=== PATIENT | female | born 1955 | race Caucasian/White ===

== ENCOUNTER 2019-04-03 10:30 | Emergency (ER) | payer BC ==
--- NOTE | 2019-04-03 11:57 | EDM.PDOC ---
ED HPI GENERAL MEDICAL PROBLEM - General Chief Complaint: Abdominal Pain Stated Complaint: ABD PAIN Time Seen by Provider: 04/03/19 11:54 - History of Present Illness INITIAL COMMENTS - FREE TEXT/NARRATIVE: 63-year-old female presents emergency room with nausea vomiting and abdominal pain. This is been going on most this last week. The patient was evaluated at [facility] earlier in the week had a CAT scan done yesterday which was concerning for some possible source of what could be developing a bowel obstruction in the pelvis. She also had a hiatal hernia noted. Earlier in the week she had a gallbladder ultrasound done that was possibly suggestive of fatty liver. Over the weekend she's been doing worse more discomfort some bloating and more nausea and vomiting. She is bringing up bilious vomit until she arrives in the emergency room is changed color to some maroonish dark. She' s not had any BMs today she did have several loosely formed stools normal color. On Thursday she had numerous loose watery bilious colored stools after the CT was done she did have oral contrast. She's not had any fevers or chills with this. Upper Abdomen Pain Score (Numeric/FACES): 9 - Related Data Allergies Allergy/AdvReac Type Severity Reaction Status Date / Time No Known Allergies Allergy Verified 04/03/19 11:40 Home Meds: Home Meds Denosumab [Prolia] 60 mg INJECT Q6M 04/03/19 [History] Multivits,Th w-Fe,Other Min [Complete Multivitamin] 1 tab PO DAILY 04/03/19 [ History] Oxybutynin Chloride [Ditropan Xl] 10 mg PO DAILY 04/03/19 [History] Propranolol [Inderal LA] 80 mg PO DAILY 04/03/19 [History] ED ROS GENERAL - Review of Systems Review Of Systems: See Below Constitutional: Reports: No Symptoms Respiratory: Reports: No Symptoms Cardiovascular: Reports: No Symptoms Endocrine: Reports: No Symptoms GI/Abdominal: Reports: No Symptoms, Abdominal Pain, Diarrhea, Hematemesis, Nausea, Vomiting. Denies: Black Stool, Bloody Stool, Constipation : Reports: No Symptoms Musculoskeletal: Reports: No Symptoms Neurological: Reports: No Symptoms Psychiatric: Reports: No Symptoms ED EXAM, GI/ABD - Physical Exam Exam: See Below Exam Limited By: No Limitations General Appearance: Alert, Mild Distress (From nausea vomiting and discomfort) Throat/Mouth: Normal Inspection, Normal Lips, Normal Oropharynx, No Airway Compromise Head: Atraumatic, Normocephalic Neck: Normal Inspection, Supple, Non-Tender, Full Range of Motion. No: Lymphadenopathy (L), Lymphadenopathy (R) Respiratory/Chest: No Respiratory Distress, Lungs Clear, Normal Breath Sounds Cardiovascular: Regular Rate, Rhythm, No Edema, No Murmur GI/Abdominal Exam: Other (Slightly hyperactive bowel sounds mild distention tenderness noted in the epigastric area is more so than the right and left upper quadrant with some vague discomfort throughout no rebound guarding or rigidity noted) Back Exam: Normal Inspection. No: CVA Tenderness (L), CVA Tenderness (R) Extremities: Normal Inspection, No Pedal Edema Neurological: Alert, Oriented, Normal Cognition Course - Vital Signs Last Recorded V/S: Last Vital Signs Temp 37.2 C 04/03/19 15:35 Pulse 80 04/03/19 15:35 Resp 16 04/03/19 15:35 BP 132/76 04/03/19 15:35 Pulse Ox 96 04/03/19 15:35 - Orders/Labs/Meds Orders: Active Orders 24 hr Category Date Time Status Patient Status [ADT] Stat ADT 04/03/19 17:31 Active EKG Documentation Completion [RC] ASDIRECTED Care 04/03/19 12:24 Active EKG Documentation Completion [RC] STAT Care 04/03/19 13:38 Active Abdomen 2V AP Flat Upright [CR] Stat Exams 04/03/19 12:56 Taken UA W/MICROSCOPIC [URIN] Stat Lab 04/03/19 12:23 Ordered Lactated Ringers [Ringers, Lactated] 1,000 ml Med 04/03/19 17:30 Active IV ASDIRECTED Sodium Chloride 0.9% [Saline Flush] Med 04/03/19 12:03 Active 10 ml FLUSH ASDIRECTED PRN NG [Nasogastric Orogastric Tube Insertion] [OM.PC] Oth 04/03/19 17:27 Ordered Routine Saline Lock Insert [OM.PC] Routine Oth 04/03/19 12:03 Ordered EKG 12 Lead [EK] Stat Ther 04/03/19 12:23 Ordered Medication Orders Lactated Ringer's (Ringers, Lactated) 1,000 mls @ 150 mls/hr IV ASDIRECTED WILLIAMS Sodium Chloride (Saline Flush) 10 ml FLUSH ASDIRECTED PRN PRN Reason: Keep Vein Open Last Admin: 04/03/19 14:10 Dose: 10 ml Labs: Laboratory Tests 04/03/19 04/03/19 04/03/19 Range/Units 12:12 12:12 12:12 WBC 11.30 H (3.98-10.04) K/mm3 RBC 5.24 H (3.98-5.22) M/mm3 Hgb 15.7 (11.2-15.7) gm/L Hct 46.6 H (34.1-44.9) % MCV 88.9 (79.4-94.8) fl MCH 30.0 (25.6-32.2) pg MCHC 33.7 (32.2-35.5) g/dl RDW Std Deviation 44.2 (36.4-46.3) fL Plt Count 328 (182-369) K/mm3 MPV 9.6 (9.4-12.3) fl Neutrophils % (Manual) 85 H (40-60) % Band Neutrophils % 0 (0-10) % Lymphocytes % (Manual) 13 L (20-40) % Atypical Lymphs % 0 % Monocytes % (Manual) 2 (2-10) % Eosinophils % (Manual) 0 L (0.7-5.8) % Basophils % (Manual) 0 L (0.1-1.2) Platelet Estimate Adequate RBC Morph Comment Normal Sodium 143 (136-145) mEq/L Potassium 3.8 (3.5-5.1) mEq/L Chloride 104 (98-107) mEq/L Carbon Dioxide 27 (21-32) mEq/L Anion Gap 15.8 H (5-15) BUN 12 (7-18) mg/dL Creatinine 1.1 H (0.55-1.02) mg/dL Est Cr Clr Drug Dosing 52.23 mL/min Estimated GFR (MDRD) 50 (>60) mL/min BUN/Creatinine Ratio 10.9 L (14-18) Glucose 132 H (80-115) mg/dL Lactic Acid (0.4-2.0) mmol/L Calcium 10.9 H (8.5-10.1) mg/dL Total Bilirubin 2.0 H (0.2-1.0) mg/dL Direct Bilirubin (0.0-0.2) mg/dl AST 26 (15-37) U/L ALT 31 (14-59) U/L Alkaline Phosphatase 103 (46-116) U/L Troponin I (0.00-0.056) ng/mL C-Reactive Protein < 0.2 (<1.0) mg/dL Total Protein 8.1 (6.4-8.2) g/dl Albumin 4.4 (3.4-5.0) g/dl Globulin 3.7 gm/dL Albumin/Globulin Ratio 1.2 (1-2) Lipase 113 (73-393) U/L 04/03/19 04/03/19 04/03/19 Range/Units 12:12 12:12 17:05 WBC (3.98-10.04) K/mm3 RBC (3.98-5.22) M/mm3 Hgb (11.2-15.7) gm/L Hct (34.1-44.9) % MCV (79.4-94.8) fl MCH (25.6-32.2) pg MCHC (32.2-35.5) g/dl RDW Std Deviation (36.4-46.3) fL Plt Count (182-369) K/mm3 MPV (9.4-12.3) fl Neutrophils % (Manual) (40-60) % Band Neutrophils % (0-10) % Lymphocytes % (Manual) (20-40) % Atypical Lymphs % % Monocytes % (Manual) (2-10) % Eosinophils % (Manual) (0.7-5.8) % Basophils % (Manual) (0.1-1.2) Platelet Estimate RBC Morph Comment Sodium (136-145) mEq/L Potassium (3.5-5.1) mEq/L Chloride (98-107) mEq/L Carbon Dioxide (21-32) mEq/L Anion Gap (5-15) BUN (7-18) mg/dL Creatinine (0.55-1.02) mg/dL Est Cr Clr Drug Dosing mL/min Estimated GFR (MDRD) (>60) mL/min BUN/Creatinine Ratio (14-18) Glucose (80-115) mg/dL Lactic Acid 0.7 (0.4-2.0) mmol/L Calcium (8.5-10.1) mg/dL Total Bilirubin (0.2-1.0) mg/dL Direct Bilirubin 0.30 H (0.0-0.2) mg/dl AST (15-37) U/L ALT (14-59) U/L Alkaline Phosphatase (46-116) U/L Troponin I < 0.017 (0.00-0.056) ng/mL C-Reactive Protein (<1.0) mg/dL Total Protein (6.4-8.2) g/dl Albumin (3.4-5.0) g/dl Globulin gm/dL Albumin/Globulin Ratio (1-2) Lipase (73-393) U/L Meds: Medications Generic Name Dose Route Start Last Admin Trade Name Freq PRN Reason Stop Dose Admin Lactated Ringer's 1,000 mls @ 150 mls/hr 04/03/19 17:30 Ringers, Lactated IV ASDIRECTED WILLIAMS Sodium Chloride 10 ml 04/03/19 12:03 04/03/19 14:10 Saline Flush FLUSH 10 ml ASDIRECTED PRN Administration Keep Vein Open Discontinued Medications Generic Name Dose Route Start Last Admin Trade Name Freq PRN Reason Stop Dose Admin Al Hydroxide/Mg Hydroxide 30 0 ml 04/03/19 12:29 04/03/19 12:51 ml/ Lidocaine HCl 15 ml PO 04/03/19 12:30 45 ml ONETIME ONE Administration Hydromorphone HCl 0.5 mg 04/03/19 15:14 04/03/19 15:21 Dilaudid IVPUSH 04/03/19 15:15 0.5 mg ONETIME ONE Administration Sodium Chloride 1,000 mls @ 999 mls/hr 04/03/19 12:14 04/03/19 12:27 Normal Saline IV 04/03/19 13:14 999 mls/hr ONETIME ONE Administration Lactated Ringer's 1,000 mls @ 999 mls/hr 04/03/19 13:33 04/03/19 13:45 Ringers, Lactated IV 04/03/19 14:33 999 mls/hr .BOLUS ONE Administration Metoclopramide HCl 5 mg 04/03/19 15:15 04/03/19 15:19 Reglan IVPUSH 04/03/19 15:16 5 mg ONETIME ONE Administration Ondansetron HCl 4 mg 04/03/19 12:02 04/03/19 12:18 Zofran IVPUSH 04/03/19 12:03 4 mg ONETIME ONE Administration Ondansetron HCl 4 mg 04/03/19 12:55 04/03/19 13:02 Zofran IVPUSH 04/03/19 12:56 4 mg ONETIME ONE Administration Pantoprazole Sodium 80 mg 04/03/19 12:29 04/03/19 12:54 Protonix Iv IVPUSH 04/03/19 12:30 80 mg BOLUS ONE Administration - Re-Assessments/Exams Free Text/Narrative Re-Assessment/Exam: 04/03/19 17:[address] done on Thursday this was not repeated she had plain films done today which show a couple dilated loops small bowel in the right upper quadrant. Patient got some relief from nausea and vomiting with Reglan and a little Dilaudid much more tolerable at this point situation including the CT done at [facility] yesterday were discussed with Dr. Peterson reviewed their records and then got back to me she'll have an NG tube placed as she has not had a BM today and she will be admitted. We'll continue the IV fluids LR 150 mL an hour. 04/03/19 18:33 Dr. Peterson did evaluate the patient and thinks she be better served by going to [place] as this may be a very large surgery if there is indeed a tumor causing this. She has discussed this with the on-call surgeon at [facility] in [place] as well as Dr. Grove, the hospitalist who will admit the patient requested go by private car and her will drive her immediately over to [facility] in [place] and this should be a direct admission. Departure - Departure Time of Disposition: 17:00 Disposition: DC/Tfer to Acute Hospital 02 Clinical Impression: Small bowel obstruction - Discharge Information Referrals: Katty Arreola MD [Primary Care Provider] - Forms: ED Department Discharge Additional Instructions: Get to [facility] in [place] as soon as you can. Do not have anything to eat or drink. - My Orders Last 24 Hours: My Active Orders 04/03/19 12:03 Sodium Chloride 0.9% [Saline Flush] 10 ml FLUSH ASDIRECTED PRN Saline Lock Insert [OM.PC] Routine 04/03/19 12:23 UA W/MICROSCOPIC [URIN] Stat EKG 12 Lead [EK] Stat 04/03/19 12:24 EKG Documentation Completion [RC] ASDIRECTED 04/03/19 12:56 Abdomen 2V AP Flat Upright [CR] Stat 04/03/19 13:38 EKG Documentation Completion [RC] STAT 04/03/19 17:27 NG [Nasogastric Orogastric Tube Insertion] [OM.PC] Routine 04/03/19 17:30 Lactated Ringers [Ringers, Lactated] 1,000 ml IV ASDIRECTED 04/03/19 17:31 Patient Status [ADT] Stat - Assessment/Plan Last 24 Hours: My Active Orders 04/03/19 12:03 Sodium Chloride 0.9% [Saline Flush] 10 ml FLUSH ASDIRECTED PRN Saline Lock Insert [OM.PC] Routine 04/03/19 12:23 UA W/MICROSCOPIC [URIN] Stat EKG 12 Lead [EK] Stat 04/03/19 12:24 EKG Documentation Completion [RC] ASDIRECTED 04/03/19 12:56 Abdomen 2V AP Flat Upright [CR] Stat 04/03/19 13:38 EKG Documentation Completion [RC] STAT 04/03/19 17:27 NG [Nasogastric Orogastric Tube Insertion] [OM.PC] Routine 04/03/19 17:30 Lactated Ringers [Ringers, Lactated] 1,000 ml IV ASDIRECTED 04/03/19 17:31 Patient Status [ADT] Stat
[2019-04-03] MEDS ORDERED: Ondansetron 4 MG/2 ML SDV IVPUSH ONE ×2 (12:02→12:55)
[2019-04-03] MEDS ORDERED: Sodium Chloride 0.9% 10 ML Syringe FLUSH PRN (12:03)
[2019-04-03] MEDS ORDERED: Sodium Chloride 0.9% 1,000 ML IV ONE (12:14)
[2019-04-03] MEDS ORDERED: Alum Hydrox/Mag Hydrox/Simeth 30 ML, Lidocaine 2% 15 ML PO ONE ×2 (12:29)
[2019-04-03] MEDS ORDERED: Pantoprazole 40 MG Vial IVPUSH ONE (12:29)
[2019-04-03] MEDS ORDERED: Lactated Ringers 1,000 ML IV ONE (13:33)
[2019-04-03] MEDS ORDERED: HYDROmorphone 0.5 MG/0.5 ML Syringe IVPUSH ONE (15:14)
[2019-04-03] MEDS ORDERED: Metoclopramide 10 MG/2 ML SDV IVPUSH ONE (15:15)
[2019-04-03] MEDS ORDERED: Lactated Ringers 1,000 ML IV SCH (17:30)
--- NOTE | 2019-04-03 18:30 | PCM.CONS ---
H&P History of Present Illness - General Date of Service: 04/03/19 Admit Problem/Dx: Admission Diagnosis/Problem Admission Diagnosis/Problem Small bowel obstruction Source of Information: Patient, Old Records, Provider - History of Present Illness Initial Comments - Free Text/Narative: the patient is a 63-year-old worsening epigastric abdominal pain as well as nausea and vomiting. The patient reports having intermittent epigastric pain for the last 2 weeks. It worsened today. upon arrival to the emergency room, she noted coffee grounds and dark blood in her vomit. She experienced diarrhea 2 days ago after having a CT scan with contrast, since that time she's had scant amount of stool, last was one day ago. patient then proceeded to have a small watery brown stool in the emergency department Approximately 1 week ago she also was experiencing nausea and vomiting. She was seen in the outpatient clinic and laboratory evaluation was conducted. She was seen by a surgeon outpatient, a CT scan was done. The CT scan revealed some dilated loops of bowel with a stricturing process in the right lower quadrant, concern for malignancy versus infectious process. 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 - Infectious Disease History Infectious Disease History: Reports: Chicken Pox, Measles, Mumps - Past Surgical History GI Surgical History: Reports: Colonoscopy Social & Family History - Family History Oncologic: Reports: Colon (in father, age 60's when diagnosed) - Tobacco Use Smoking Status *Q: Never Smoker Second Hand Smoke Exposure: No - Caffeine Use Caffeine Use: Reports: Coffee - Recreational Drug Use Recreational Drug Use: No H&P Review of Systems - Review of Systems: Review Of Systems: See Below General: Reports: No Symptoms HEENT: Reports: No Symptoms Pulmonary: Reports: No Symptoms Cardiovascular: Reports: No Symptoms Gastrointestinal: Reports: Abdominal Pain, Hematemesis, Nausea Musculoskeletal: Reports: No Symptoms Skin: Reports: No Symptoms Neurological: Reports: No Symptoms Hematologic/Lymphatic: Reports: No Symptoms Exam - Exam Exam: See Below - Vital Signs Vital Signs: Last Vital Signs Temp 37.2 C 04/03/19 15:35 Pulse 80 04/03/19 15:35 Resp 16 04/03/19 15:35 BP 132/76 04/03/19 15:35 Pulse Ox 96 04/03/19 15:35 Weight: 68.492 kg - Exam General: Alert, Oriented HEENT: Conjunctiva Clear, EOMI Neck: Supple Lungs: Normal Respiratory Effort Cardiovascular: Regular Rate, Regular Rhythm GI/Abdominal Exam: Soft, No Distention Extremities: Normal Inspection Peripheral Pulses: 2+: Posterior Tibial (L), Posterior Tibial (R) Skin: Warm, Dry, Intact - Patient Data Lab Results Last 24 hrs: Laboratory Results - last 24 hr 04/03/19 04/03/19 04/03/19 Range/Units 12:12 12:12 12:12 WBC 11.30 H (3.98-10.04) K/mm3 RBC 5.24 H (3.98-5.22) M/mm3 Hgb 15.7 (11.2-15.7) gm/L Hct 46.6 H (34.1-44.9) % MCV 88.9 (79.4-94.8) fl MCH 30.0 (25.6-32.2) pg MCHC 33.7 (32.2-35.5) g/dl RDW Std Deviation 44.2 (36.4-46.3) fL Plt Count 328 (182-369) K/mm3 MPV 9.6 (9.4-12.3) fl Neutrophils % (Manual) 85 H (40-60) % Band Neutrophils % 0 (0-10) % Lymphocytes % (Manual) 13 L (20-40) % Atypical Lymphs % 0 % Monocytes % (Manual) 2 (2-10) % Eosinophils % (Manual) 0 L (0.7-5.8) % Basophils % (Manual) 0 L (0.1-1.2) Platelet Estimate Adequate RBC Morph Comment Normal Sodium 143 (136-145) mEq/L Potassium 3.8 (3.5-5.1) mEq/L Chloride 104 (98-107) mEq/L Carbon Dioxide 27 (21-32) mEq/L Anion Gap 15.8 H (5-15) BUN 12 (7-18) mg/dL Creatinine 1.1 H (0.55-1.02) mg/dL Est Cr Clr Drug Dosing 52.23 mL/min Estimated GFR (MDRD) 50 (>60) mL/min BUN/Creatinine Ratio 10.9 L (14-18) Glucose 132 H (80-115) mg/dL Lactic Acid (0.4-2.0) mmol/L Calcium 10.9 H (8.5-10.1) mg/dL Total Bilirubin 2.0 H (0.2-1.0) mg/dL Direct Bilirubin (0.0-0.2) mg/dl AST 26 (15-37) U/L ALT 31 (14-59) U/L Alkaline Phosphatase 103 (46-116) U/L Troponin I (0.00-0.056) ng/mL C-Reactive Protein < 0.2 (<1.0) mg/dL Total Protein 8.1 (6.4-8.2) g/dl Albumin 4.4 (3.4-5.0) g/dl Globulin 3.7 gm/dL Albumin/Globulin Ratio 1.2 (1-2) Lipase 113 (73-393) U/L 04/03/19 04/03/19 04/03/19 Range/Units 12:12 12:12 17:05 WBC (3.98-10.04) K/mm3 RBC (3.98-5.22) M/mm3 Hgb (11.2-15.7) gm/L Hct (34.1-44.9) % MCV (79.4-94.8) fl MCH (25.6-32.2) pg MCHC (32.2-35.5) g/dl RDW Std Deviation (36.4-46.3) fL Plt Count (182-369) K/mm3 MPV (9.4-12.3) fl Neutrophils % (Manual) (40-60) % Band Neutrophils % (0-10) % Lymphocytes % (Manual) (20-40) % Atypical Lymphs % % Monocytes % (Manual) (2-10) % Eosinophils % (Manual) (0.7-5.8) % Basophils % (Manual) (0.1-1.2) Platelet Estimate RBC Morph Comment Sodium (136-145) mEq/L Potassium (3.5-5.1) mEq/L Chloride (98-107) mEq/L Carbon Dioxide (21-32) mEq/L Anion Gap (5-15) BUN (7-18) mg/dL Creatinine (0.55-1.02) mg/dL Est Cr Clr Drug Dosing mL/min Estimated GFR (MDRD) (>60) mL/min BUN/Creatinine Ratio (14-18) Glucose (80-115) mg/dL Lactic Acid 0.7 (0.4-2.0) mmol/L Calcium (8.5-10.1) mg/dL Total Bilirubin (0.2-1.0) mg/dL Direct Bilirubin 0.30 H (0.0-0.2) mg/dl AST (15-37) U/L ALT (14-59) U/L Alkaline Phosphatase (46-116) U/L Troponin I < 0.017 (0.00-0.056) ng/mL C-Reactive Protein (<1.0) mg/dL Total Protein (6.4-8.2) g/dl Albumin (3.4-5.0) g/dl Globulin gm/dL Albumin/Globulin Ratio (1-2) Lipase (73-393) U/L Result Diagrams: 04/03/19 12:12 04/03/19 12:12 Consult PN Assessment/Plan Procedures: Procedures DXA BONE DENSITY AXIAL (12/02/13) (1) Small bowel obstruction SNOMED Code(s): 614074498 Code(s): K56.609 - UNSP INTESTNL OBST, UNSP TO PARTIAL VERSUS COMPLETE OBST Current Visit: Yes Problem List Initiated/Reviewed/Updated: Yes My Orders Last 24 Hours: 63-year-old lady with small bowel obstruction, unknown etiology of stricturing process - ppatient with only mild elevation in WBC, unlikely infectious etiology. High suspicion for malignancy given her lack of abdominal surgery and no history of inflammatory bowel disease. Patient also has family history of colon cancer in her father and has not had a colonoscopy in greater than 10 years - she may need very involved resection which would not be best managed our facility. Recommend patient be transferred to [facility]. Call placed to [facility] one-call. Talked with Dr. Whitlock who agreed to transfer. Discussed with Dr. Barnes hospitalist to have patient directly admitted. Pt instructed to Proceed to Ambulance bay at [facility], then she will be directed to the floor. Tata James MD General Surgery Plan: 63 y/o with small bowel obstruction from stricturing process, unknown etiology - discussed with patient that this may be from benign or malignant etiology. Discussed that if malignant
--- NOTE | 2019-04-04 07:00 | CR ---
Abdomen: Supine and upright views of the abdomen were obtained. Comparison: Previous abdominal and pelvic CT study of 04/01/19. Dilated small bowel is noted within the upper right abdomen with differential air-fluid levels. Findings are suspicious for mid to proximal small bowel obstruction. Scoliosis and degenerative change are noted within the spine. No free air is seen. Calcification is seen within the left side of the pelvis most likely due to phlebolith. Impression: 1. Findings suspicious for mid to proximal small bowel obstruction. 2. Other incidental findings as noted above. Diagnostic code #5
== END 2019-04-03 19:37 ==
LOC: JD.ED 10:30
DX: K56.609 Unspecified intestinal obstruction, unspecified as to partial versus complete obstruction (principal)
CPT/HCPCS: 36415; 74019; 80053; 82248; 83605; 83690; 84484; 85007; 85027; 86140; 93005; 96361; 96374; 96375; 96376; 99285; A9270; C9113; J1170; J2405; J2765; J7040; J7120; 93010; 99284

== ENCOUNTER 2019-04-08 10:06 | Emergency (ER) | payer BC ==
--- NOTE | 2019-04-08 10:35 | EDM.PDOC ---
ED HPI GENERAL MEDICAL PROBLEM - General Chief Complaint: Chest Pain Stated Complaint: CHEST PAIN, STOMACH PAIN Time Seen by Provider: 04/08/19 10:24 Source of Information: Reports: Patient History Limitations: Reports: No Limitations - History of Present Illness INITIAL COMMENTS - FREE TEXT/NARRATIVE: 63-year-old female presents to the ED with epigastric pressure pain with associated nausea and did vomit once this morning. Pain radiates along both costal margins. She was recently diagnosed with a hiatal hernia by EGD in [place] on Thursday this week. She had a laparoscopy performed to rule out a abnormality in the small bowel as CT suggested there may be a tumor in the small bowel. No tumor was identified. She has had one normal bowel movement since surgery. Does have occasional burping and belching. Feels that proton axis try to help with the heartburn which she started on Thursday. Over she awoke with pain during the night in the epigastrium radiating along the costal margin up slightly into her lower retrosternal chest. Onset: Today Onset Date: 04/08/19 Onset Time: 06:00 Duration: Hour(s): Location: Reports: Abdomen (Pit of the stomach of or epigastrium.) Quality: Reports: Ache, Pressure Severity: Moderate Improves with: Reports: None Worsens with: Reports: None Context: Denies: Activity, Exercise, Lifting, Sick Contact, Trauma, Other Associated Symptoms: Reports: Chest Pain, Loss of Appetite, Nausea/Vomiting ( Vomited up breakfast which was a banana this morning.). 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 ASSISTANT: Reports: Other (see below) (None.) Epigastric Pain Score (Numeric/FACES): 7 - Related Data Allergies Allergy/AdvReac Type Severity Reaction Status Date / Time No Known Allergies Allergy Verified 04/08/19 10:15 Home Meds: Home Meds Denosumab [Prolia] 60 mg INJECT Q6M 04/03/19 [History] Multivits,Th w-Fe,Other Min [Complete Multivitamin] 1 tab PO DAILY 04/03/19 [ History] Oxybutynin Chloride [Ditropan Xl] 10 mg PO DAILY 04/03/19 [History] Propranolol [Inderal LA] 80 mg PO DAILY 04/03/19 [History] Hyoscyamine Sulfate [Levsin-Sl] 0.125 mg SL ASDIRECTED #10 tab.subl 04/08/19 [Rx ] Ondansetron [Zofran] 4 mg BUCCAL Q6H PRN #6 tab 04/08/19 [Rx] Pantoprazole Sodium [Protonix] 40 mg PO DAILY 04/08/19 [History] Past Medical History Gastrointestinal History: Reports: GERD, Hiatal Hernia, Other (See Below) ( Diagnosed with hiatal hernia by EGD days ago-April 04) 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 - Infectious Disease History Infectious Disease History: Reports: Chicken Pox, Measles, Mumps - Past Surgical History GI Surgical History: Reports: Colonoscopy Social & Family History - Family History Oncologic: Reports: Colon - Tobacco Use Smoking Status *Q: Never Smoker - Caffeine Use Caffeine Use: Reports: Coffee - Recreational Drug Use Recreational Drug Use: No - Living Situation & Occupation Living situation: Reports: Occupation: Employed ED ROS GENERAL - Review of Systems Review Of Systems: See Below Constitutional: Reports: Malaise, Weakness, Fatigue, Decreased Appetite, Weight Loss. Denies: Fever, Chills HEENT: Reports: No Symptoms Respiratory: Reports: No Symptoms Cardiovascular: Reports: Chest Pain Endocrine: Reports: Fatigue (Mild lower retrosternal pressure discomfort.) GI/Abdominal: Reports: Abdominal Pain (Epigastric pressure pain rating along both costal margins anteriorly.) : Reports: No Symptoms ( Is not radiate through to her back.) Musculoskeletal: Reports: No Symptoms Skin: Reports: No Symptoms Neurological: Reports: No Symptoms Psychiatric: Reports: No Symptoms Hematologic/Lymphatic: Reports: No Symptoms Immunologic: Reports: No Symptoms ED EXAM, GENERAL - Physical Exam Exam: See Below General Appearance: Alert, WD/WN, No Apparent Distress Eye Exam: Bilateral Eye: Normal Inspection (No scleral icterus.) Respiratory/Chest: No Respiratory Distress, Lungs Clear, Normal Breath Sounds, No Accessory Muscle Use, Chest Non-Tender Cardiovascular: Regular Rate, Rhythm, No Edema, No Gallop, No Murmur, No Rub Peripheral Pulses: 3+: Posterior Tibial (L), Posterior Tibial (R), Dorsalis Pedis (L), Dorsalis Pedis (R) GI/Abdominal: Soft, No Organomegaly, Tender, Abnormal Bowel Sounds, Other ( Negative Lovelace sign). No: Guarding, Rigid, Rebound Back Exam: Normal Inspection, Full Range of Motion. No: CVA Tenderness (L), CVA Tenderness (R) Extremities: Normal Inspection, Normal Range of Motion, Non-Tender Neurological: Alert, Oriented, CN II-XII Intact, Normal Cognition Psychiatric: Anxious Skin Exam: Warm, Dry, Intact, Pallor (Mildly pallid) EKG INTERPRETATION EKG Date: 04/08/19 Time: 14:00 Rhythm: NSR Rate (Beats/Min): 64 [place]: Normal P-Wave: Enlarged (Consider left atrial hypertrophy) QRS: Other (Borderline criteria for left ventricular hypertrophy pattern) ST-T: Normal QT: Normal EKG Interpretation Comments: No signs of ischemia. ECG Course - Vital Signs Last Recorded V/S: Last Vital Signs Temp 35.8 C 04/08/19 10:12 Pulse 70 04/08/19 10:12 Resp 16 04/08/19 10:12 BP 131/108 H 04/08/19 10:12 Pulse Ox 100 04/08/19 10:12 - Orders/Labs/Meds Orders: Active Orders 24 hr Category Date Time Status EKG Documentation Completion [RC] ASDIRECTED Care 04/08/19 10:18 Active Chest 2V [CR] Stat Exams 04/08/19 10:42 Taken Dextrose 5%-0.9% NaCl [Dextrose 5%-Normal Saline] 1,000 Med 04/08/19 10:45 Active ml IV ASDIRECTED EKG 12 Lead [EK] Stat Ther 04/08/19 10:18 Ordered Medication Orders Dextrose/Sodium Chloride (Dextrose 5%-Normal Saline) 1,000 mls @ 500 mls/hr IV ASDIRECTED WILLIAMS Last Admin: 04/08/19 10:47 Dose: 500 mls/hr Meds: Medications Generic Name Dose Route Start Last Admin Trade Name Freq PRN Reason Stop Dose Admin Dextrose/Sodium Chloride 1,000 mls @ 500 mls/hr 04/08/19 10:45 04/08/19 10:47 Dextrose 5%-Normal Saline IV 500 mls/hr ASDIRECTED WILLIAMS Administration Discontinued Medications Generic Name Dose Route Start Last Admin Trade Name Freq PRN Reason Stop Dose Admin Hyoscyamine 0.125 mg 04/08/19 10:50 Hyomax-Sl SL 04/08/19 10:51 ONETIME ONE Hyoscyamine 0.125 mg 04/08/19 10:40 04/08/19 10:48 Hyomax-Sl SL 04/08/19 10:41 Not Given ONETIME ONE Hyoscyamine 0.125 mg 04/08/19 10:39 04/08/19 10:48 Hyomax-Sl SL 04/08/19 10:40 0.125 mg ONETIME ONE Administration Hyoscyamine 0.125 mg 04/08/19 10:52 04/08/19 11:12 Hyomax-Sl SL 04/08/19 10:53 0.125 mg ONETIME ONE Administration Metoclopramide HCl 7.5 mg 04/08/19 10:41 04/08/19 10:47 Reglan IVPUSH 04/08/19 10:42 7.5 mg ONETIME ONE Administration - Radiology Interpretation Free Text/Narrative:: 63-year-old female presents to the ED with epigastric pain rating along both anterior costal margins but not through to her back. This is characteristic of hiatal hernia type pain of which she was recently diagnosed. We'll try Levsin 0.125 mg now repeat in 10 minutes. IV will be started D5 normal saline at 500 mils per hour. Will be given Reglan 7.5 mg IV for nausea relief. Two-view chest will be done to see if we can identify a significant hiatal hernia on chest x- ray. - Re-Assessments/Exams Free Text/Narrative Re-Assessment/Exam: 04/08/19 11:07 lateral chest x-ray does reveal a small amount of air retrocardiac space suggesting hiatal hernia. 04/08/19 11:37 patient reports that after the second tablet of lessen the pain is pretty well gone. Therefore she will be discharged on Levsin tablets to have on hand to use 1 every 10 minutes apart 2 tablets for similar attacks if needed. Zofran 4 mg sublingual every 4-6 hours as needed for nausea relief. They will raise the head of the bed by 4 inches with couple of 2 x 4 send an effort to try and prevent recurrent hiatal hernia tacks. Failing this they will contact their primary care provider to try and set up with a surgeon who does fundoplication. Will continue her Protonix at this time. Departure - Departure Time of Disposition: 11:38 Disposition: Home, Self-Care 01 Condition: Fair Clinical Impression: Non-cardiac chest pain, Hiatal hernia Prescriptions: Hyoscyamine Sulfate [Levsin-Sl] 0.125 mg SL ASDIRECTED #10 tab.subl Ondansetron [Zofran] 4 mg BUCCAL Q6H PRN #6 tab PRN Reason: nausea or vomiting Instructions: Hiatal Hernia Referrals: Katty Arreola MD [Primary Care Provider] - Forms: ED Department Discharge Additional Instructions: Valuation the emergency room today in regards to development of pit of the stomach epigastric pain radiating up into the lower retrosternal chest. Pain radiates along the costal margin but not through to the back. History of recently diagnosed hiatal hernia. Examination reveals lungs to be clear heart normal ECG normal. Current pain syndrome is felt to be hiatal hernia related. He was therefore given Reglan 7.5 mg intravenously for nausea relief. Less in 0.125 mg tablets sublingual times to 10 minutes apart which seem to relieve your pain a good deal. I will send a prescription over the same type of medication and Zofran 4 mg under the tongue to be taken every 6 hours as needed for nausea relief when you get one of these attacks. As we discussed going to bed with an empty stomach with nothing to eat for 3 hours prior to going to bed usually helps eliminate a lot of hiatal hernia. Raising the head of the bed by 2 2 x 4 is usually helps alleviate hiatal hernia pain as well. May use the Levsin under the tongue one every 10 minutes 2 for relief of similar type pain with Zofran under the tongue as well. Failing this over the pain persists then come back to the ED. If symptoms persist then have your primary care physician arrange for surgical consultation in regards to possible fundoplication to repair her hiatal hernia and prevent this from reoccurring. - My Orders Last 24 Hours: My Active Orders 04/08/19 10:18 EKG Documentation Completion [RC] ASDIRECTED EKG 12 Lead [EK] Stat 04/08/19 10:42 Chest 2V [CR] Stat 04/08/19 10:45 Dextrose 5%-0.9% NaCl [Dextrose 5%-Normal Saline] 1,000 ml IV ASDIRECTED - Assessment/Plan Last 24 Hours: My Active Orders 04/08/19 10:18 EKG Documentation Completion [RC] ASDIRECTED EKG 12 Lead [EK] Stat 04/08/19 10:42 Chest 2V [CR] Stat 04/08/19 10:45 Dextrose 5%-0.9% NaCl [Dextrose 5%-Normal Saline] 1,000 ml IV ASDIRECTED
[2019-04-08] MEDS ORDERED: Hyoscyamine 0.125 MG Tab.SL SL ONE ×4 (10:39→10:52)
[2019-04-08] MEDS ORDERED: Metoclopramide 10 MG/2 ML SDV IVPUSH ONE (10:41)
[2019-04-08] MEDS ORDERED: Dextrose 5%-0.9% NaCl 1,000 ML IV SCH (10:45)
--- NOTE | 2019-04-08 11:54 | CR ---
Chest: Two views of the chest were obtained. Comparison: No prior chest imaging. Heart size is normal. Small hiatal hernia is noted. Tortuous thoracic aorta is seen. Lungs are clear with no acute parenchymal change. Fairly prominent scoliosis is present within the spine. Bony structures are also osteopenic. Impression: 1. Small hiatal hernia. 2. Other findings as noted above. Nothing acute is seen. Diagnostic code #2
== END 2019-04-08 11:52 | disposition home or self-care (01) ==
LOC: JD.ED 10:06
DX: K44.9 Diaphragmatic hernia without obstruction or gangrene (principal); R07.89 Other chest pain; K21.9 Gastro-esophageal reflux disease without esophagitis; Z86.2 Personal history of diseases of the blood and blood-forming organs and certain disorders involving the immune mechanism; Z79.899 Other long term (current) drug therapy
CPT/HCPCS: 71046; 93005; 96361; 96374; 99284; A9270; J2765; J7042

== ENCOUNTER 2019-04-16 21:22 | Inpatient (IN) | payer BC ==
[2019-04-16] MEDS ORDERED: Metoclopramide 10 MG/2 ML SDV IVPUSH STA (22:28)
[2019-04-16] MEDS ORDERED: HYDROmorphone 0.5 MG/0.5 ML Syringe IVPUSH ONE (22:28)
[2019-04-16] MEDS ORDERED: Ondansetron 4 MG/2 ML SDV IVPUSH ONE (22:28)
[2019-04-16] MEDS ORDERED: Sodium Chloride 0.9% 1,000 ML IV ONE (22:28)
--- NOTE | 2019-04-16 22:33 | EDM.PDOC ---
ED HPI GENERAL MEDICAL PROBLEM - General Chief Complaint: Abdominal Pain Stated Complaint: HERNIA UNABLE TO KEEP FOOD DOWN NO BM IN WEEK Time Seen by Provider: 04/16/19 21:43 Source of Information: Reports: Patient, Family () History Limitations: Reports: No Limitations - History of Present Illness INITIAL COMMENTS - FREE TEXT/NARRATIVE: Mrs. Bush is a very pleasant 63-year-old woman with no significant medical problems, who states that she has been experiencing recurrent crampy upper abdominal pain, nausea, and vomiting, since late February 2019. An ultrasound of her right upper quadrant approximately 3 weeks ago was reportedly negative. A CT scan of her abdomen and pelvis with contrast approximately 2 weeks ago apparently demonstrated a small hiatal hernia and some dilated loops of bowel with a stricturing process in the right lower quadrant, concerning for malignancy versus an infectious process (I don't have either of those reports). [address] scan, the patient suffered significant nausea and vomiting. As a result of the CT scan, she underwent exploratory laparoscopy on , which was reportedly completely normal. The patient's tells me that the surgeon told him that he ran the bowel from one end to the other, and back again, and found nothing. She then underwent an EGD the following day, on 04/05/2019, which redemonstrated the hiatal hernia, but was otherwise negative. According to the patient's , there was no evidence of gastritis or acid reflux. The patient was then started on Protonix 40 mg daily, which she states she has been compliant with. She states that, because of her symptoms, she has been eating very little, and she also reports few and small bowel movements. The patient's is concerned that this indicates that there is some sort of an intestinal blockage. The patient was seen in this ED on 04/08/2019 for the same epigastric pain, nausea, and vomiting. A chest x-ray again redemonstrated a small hiatal hernia. She was treated with 2 doses of hycosamine (Levsin), IV Reglan, and IV fluid, and her symptoms substantially improved. She was discharged home with prescriptions for hycosamine and Zofran. The patient states that she followed-up with her PCP yesterday, 04/15/2019 , and that she is scheduled for a HIDA scan this coming 04/20/2019. The patient states that she has been taking the hycosamine and Zofran sparingly. She took one dose of hycosamine this morning, and a second dose around 17:00 this evening. She took 1 dose of Zosyn around 20:30 this evening. 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 She denies having any back pain. She does acknowledge, however, that her pain worsens after she eats, and can be avoided if she avoids eating. The patient's PCP is Dr. Katty Busch. Her Senior Associate was likely Dr. Richard Flores. Her General Surgeon was either Dr. Orville Whitlock or Dr. Jacek Dugan. Abdomen Pain Score (Numeric/FACES): 8 - Related Data Allergies Allergy/AdvReac Type Severity Reaction Status Date / Time No Known Allergies Allergy Verified 04/16/19 21:38 Home Meds: Home Meds Denosumab [Prolia] 60 mg INJECT Q6M 04/03/19 [History] Multivits,Th w-Fe,Other Min [Complete Multivitamin] 1 tab PO DAILY 04/03/19 [ History] Oxybutynin Chloride [Ditropan Xl] 10 mg PO DAILY 04/03/19 [History] Propranolol [Inderal LA] 80 mg PO DAILY 04/03/19 [History] Hyoscyamine Sulfate [Levsin-Sl] 0.125 mg SL ASDIRECTED #10 tab.subl 04/08/19 [Rx ] Ondansetron [Zofran] 4 mg BUCCAL Q6H PRN #6 tab 04/08/19 [Rx] Pantoprazole Sodium [Protonix] 40 mg PO DAILY 04/08/19 [History] Past Medical History Gastrointestinal History: Reports: Hiatal Hernia Genitourinary History: Reports: Other (See Below) (Overactive bladder) 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: Musculoskeletal History: Reports: Fracture (left fibula), Osteoporosis, Other ( See Below) (Severe thoracolumbar scoliosis) Neurological History: Reports: Other (See Below) (Essential tremor) - Infectious Disease History Infectious Disease History: Reports: Chicken Pox, Measles, Mumps - Past Surgical History HEENT Surgical History: Reports: Oral Surgery (wisdom teeth extraction) GI Surgical History: Reports: Colonoscopy (x 1), EGD (x 1), Other (See Below) ( Exploratory laparoscopy) Female Surgical History: Reports: Other (See Below) (Left breast fibroid adenoma excision) Social & Family History - Family History Oncologic: Reports: Colon - Tobacco Use Smoking Status *Q: Never Smoker Second Hand Smoke Exposure: No - Caffeine Use Caffeine Use: Reports: None - Alcohol Use Alcohol Use History: No - Recreational Drug Use Recreational Drug Use: No - Living Situation & Occupation Living situation: Reports: , with Spouse 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 ED EXAM, GI/ABD - Physical Exam Exam: See Below Exam Limited By: No Limitations General Appearance: Alert, WD/WN, Mild Distress (Appears uncomfortable. Occasional retching, small emesis.) Eyes: Bilateral: Normal Appearance, EOMI Ears: Normal External Exam, Hearing Grossly Normal Nose: Normal Inspection Throat/Mouth: Normal Inspection, Normal Lips, Normal Voice, No Airway Compromise Head: Atraumatic, Normocephalic Neck: Normal Inspection, Full Range of Motion Respiratory/Chest: No Respiratory Distress, Lungs Clear, Normal Breath Sounds, No Accessory Muscle Use Cardiovascular: Normal Peripheral Pulses, Regular Rate, Rhythm, No Edema, No Gallop, No JVD, No Murmur, No Rub GI/Abdominal Exam: Normal Bowel Sounds, Soft, No Organomegaly, No Distention, No Abnormal Bruit, No Mass, Tender (Right upper quadrant only. Minimal tenderness elsewhere. Lovelace's sign present.) (Female) Exam: Deferred Rectal (Female) Exam: Deferred Back Exam: Normal Inspection, Full Range of Motion. No: CVA Tenderness (L), CVA Tenderness (R) Extremities: Normal Inspection, Normal Range of Motion, No Pedal Edema, Normal Capillary Refill Neurological: Alert, Oriented, Normal Cognition, No Motor/Sensory Deficits Psychiatric: Normal Affect Skin Exam: Warm, Dry, Intact, Normal Color, No Rash Course - Vital Signs Last Recorded V/S: Last Vital Signs Temp 36.6 C 04/16/19 21:32 Pulse 76 04/16/19 21:32 Resp 19 04/16/19 21:32 BP 151/104 H 04/16/19 21:32 Pulse Ox 96 04/16/19 21:32 Orthostatic Blood Pressure [ 122/91 Standing] Orthostatic Blood Pressure [ 135/79 Supine] - Orders/Labs/Meds Orders: Active Orders 24 hr Category Date Time Status Admission Status [Patient Status] [ADT] Routine ADT 04/17/19 00:44 Active Orthostatic Vital Signs [RC] STAT Care 04/16/19 22:29 Active Abdomen 1V Flat [CR] Stat Exams 04/16/19 22:29 Taken Labs: Laboratory Tests 04/16/19 04/16/19 Range/Units 22:42 22:42 WBC 11.00 H (3.98-10.04) K/mm3 RBC 5.06 (3.98-5.22) M/mm3 Hgb 15.1 (11.2-15.7) gm/L Hct 45.5 H (34.1-44.9) % MCV 89.9 (79.4-94.8) fl MCH 29.8 (25.6-32.2) pg MCHC 33.2 (32.2-35.5) g/dl RDW Std Deviation 45.6 (36.4-46.3) fL Plt Count 294 (182-369) K/mm3 MPV 9.3 L (9.4-12.3) fl Neutrophils % (Manual) 89 H (40-60) % Band Neutrophils % 0 (0-10) % Lymphocytes % (Manual) 9 L (20-40) % Atypical Lymphs % 0 % Monocytes % (Manual) 2 (2-10) % Eosinophils % (Manual) 0 L (0.7-5.8) % Basophils % (Manual) 0 L (0.1-1.2) Platelet Estimate Adequate Plt Morphology Comment Normal RBC Morph Comment Normal Sodium 140 (136-145) mEq/L Potassium 3.8 (3.5-5.1) mEq/L Chloride 102 (98-107) mEq/L Carbon Dioxide 24 (21-32) mEq/L Anion Gap 17.8 H (5-15) BUN 17 (7-18) mg/dL Creatinine 1.3 H (0.55-1.02) mg/dL Est Cr Clr Drug Dosing 44.19 mL/min Estimated GFR (MDRD) 42 (>60) mL/min BUN/Creatinine Ratio 13.1 L (14-18) Glucose 135 H (80-115) mg/dL Calcium 10.5 H (8.5-10.1) mg/dL Magnesium 2.1 (1.8-2.4) mg/dl Total Bilirubin 2.2 H (0.2-1.0) mg/dL AST 23 (15-37) U/L ALT 37 (14-59) U/L Alkaline Phosphatase 101 (46-116) U/L Total Protein 7.6 (6.4-8.2) g/dl Albumin 4.1 (3.4-5.0) g/dl Globulin 3.5 gm/dL Albumin/Globulin Ratio 1.2 (1-2) Lipase 166 (73-393) U/L Meds: Medications Discontinued Medications Generic Name Dose Route Start Last Admin Trade Name Freq PRN Reason Stop Dose Admin Hydromorphone HCl 0.5 mg 04/16/19 22:28 04/16/19 22:38 Dilaudid IVPUSH 04/16/19 22:29 0.5 mg ONETIME ONE Administration Sodium Chloride 1,000 mls @ 999 mls/hr 04/16/19 22:28 04/16/19 22:38 Normal Saline IV 04/16/19 23:28 999 mls/hr ONETIME ONE Administration Metoclopramide HCl 10 mg 04/16/19 22:28 04/16/19 22:39 Reglan IVPUSH 04/16/19 22:29 10 mg ONETIME STA Administration Ondansetron HCl 4 mg 04/16/19 22:28 04/16/19 22:39 Zofran IVPUSH 04/16/19 22:29 4 mg ONETIME ONE Administration - Re-Assessments/Exams Free Text/Narrative Re-Assessment/Exam: 04/16/19 22:30 The patient has been suffering from recurrent upper abdominal pain, nausea, and vomiting made worse after eating, since late February. As per the HPI, prior evaluation, including an ultrasound of the right upper quadrant, a CT scan of the abdomen and pelvis, an EGD, and even an exploratory laparoscopy, have all been negative. Based on her history and physical exam, I strongly suspect that the patient is suffering from biliary colic, however, as I explained to the patient and her , proving it can be difficult. For today's purposes, I have ordered blood work, orthostatics, and a KUB to make sure that she has not suffered any significant fluid or electrolyte shifts, and we will correct any abnormalities that we find. In the meantime, the patient will receive IV fluid, IV Reglan, IV Zofran, and IV Dilaudid, to see if we can get her some symptomatic relief. The patient's has already expressed that he does not want to take the patient home, therefore we will likely be looking at placement into observation, where she can then be evaluated by the surgeon in the morning. 04/16/19 22:54 The patient is orthostatic. She is already receiving 1 L of NS; we will recheck orthostatics after it has finished infusing. 04/16/19 23:22 The KUB appears to demonstrate a nonspecific bowel gas pattern. No stool is seen. Severe thoracolumbar scoliosis is noted. Costocalcinosis is noted. Osteopenia is noted. Formal read per the Radiologist pending. 04/16/19 23:26 The patient's CBC is remarkable for a WBC count mildly elevated at 11.00, but with 0% bandemia. Her Hct is slightly elevated at 45.5, with the remainder of the CBC being normal. Her CMP is remarkable for creatinine slightly elevated at 1.3, and a blood glucose mildly elevated at 135. Her total bilirubin is elevated at 2.2. The remainder of her CMP is unremarkable. Her magnesium level is within normal limits at 2.1. Her lipase is within normal limits at 166. Reviewing prior labs, I see that the patient's total bilirubin was 2.0, with a direct bilirubin of 0.3 on 04/03/2019. 04/17/19 00:14 Test results discussed with the patient and her . The patient states that she is feeling considerably better following IV Reglan, Dilaudid, Zofran, and IV fluid. Repeat orthostatics have not yet been checked. Case discussed with Dr. Mckinney at 00:11. He agreed to place the patient into observation. I will write some bridge orders to keep the patient comfortable, and have the Surgeon Dr. Bonilla consult the patient in the morning. 04/17/19 00:18 Following 1 L of NS, the patient is no longer orthostatic. Departure - Departure Time of Disposition: 00:16 Disposition: Refer to Observation Condition: Good Clinical Impression: Recurrent right upper quadrant abdominal pain, Nausea & vomiting, Orthostasis - Discharge Information *PRESCRIPTION DRUG MONITORING PROGRAM REVIEWED*: Not Applicable *COPY OF PRESCRIPTION DRUG MONITORING REPORT IN PATIENT ERLINDA: Not Applicable Referrals: Katty Arreola MD [Primary Care Provider] - - My Orders Last 24 Hours: My Active Orders 04/16/19 22:29 Orthostatic Vital Signs [RC] STAT Abdomen 1V Flat [CR] Stat 04/17/19 00:44 Admission Status [Patient Status] [ADT] Routine - Assessment/Plan Last 24 Hours: My Active Orders 04/16/19 22:29 Orthostatic Vital Signs [RC] STAT Abdomen 1V Flat [CR] Stat 04/17/19 00:44 Admission Status [Patient Status] [ADT] Routine
[2019-04-17] MEDS ORDERED: Ondansetron 4 MG/2 ML SDV IVPUSH PRN (01:41)
[2019-04-17] MEDS: Sodium Chloride 0.9% 1,000 ML IV SCH ×4 (02:01→23:17)
[2019-04-17] MEDS: HYDROmorphone 0.5 MG/0.5 ML Syringe IVPUSH PRN ×2 (02:10→22:32)
--- NOTE | 2019-04-17 10:40 | PCM.CONSN ---
- General Info Date of Service: 04/17/19 Admission Dx/Problem (Free Text): Upper abdominal pain, nausea and vomiting Subjective Update: She reports acute on chronic epigastric pain associated with nausea and vomiting. started last night after attempting to eat a small meal consisting of applesauce. The emesis was the food she just ate, no blood, non-bilious. The pain is mostly epigastric "just under the ribs" and is sharp, gets better after belching or vomiting, worse with PO intake. Lasts several minutes at a time. it does not radiate, she gets bowel gurgling before pain relief. The patient has had this problem for 6 weeks now. I saw her 2 weeks ago for the same issue and we performed CT a/p on 04/01 that revealed hiatal hernia and a distal small bowel stricture. The patient presented to [facility] ED on 04/03 for exacerbation of the same pain and underwent exploratory laparoscopy that was negative for a stricture and EGD that showed hiatal hernia. She was discharged with Protonix. She has been taking Protonix since discharge on 04/05 but no change in her symptoms. She previously underwent an RUQ Ultrasound that was normal, no gallstones. She denies any fevers, chills, SOB, chest pain. Her labs from today show Creat of 1.3, WBC of 11 and Tbili of 2.2. Pain Score: 3 - Review of Systems General: Reports: No Symptoms HEENT: Reports: No Symptoms Pulmonary: Reports: No Symptoms Cardiovascular: Reports: No Symptoms Gastrointestinal: Reports: Abdominal Pain, Nausea, Vomiting Genitourinary: Reports: No Symptoms Musculoskeletal: Reports: No Symptoms Skin: Reports: No Symptoms Neurological: Reports: No Symptoms Psychiatric: Reports: No Symptoms - Patient Data Vitals - Most Recent: Last Vital Signs Temp 97.7 F 04/17/19 07:53 Pulse 59 L 04/17/19 07:53 Resp 16 04/17/19 07:53 BP 135/80 04/17/19 07:53 Pulse Ox 97 04/17/19 07:53 Orthostatic Blood Pressure [ 122/91 Standing] Orthostatic Blood Pressure [ 135/79 Supine] Weight - Most Recent: 67.313 kg I&O - Last 24 Hours: Intake & Output 04/16/19 04/17/19 04/17/19 22:59 06:59 14:59 Output Total 100 Balance -100 Lab Results Last 24 Hours: Laboratory Results - last 24 hr 04/16/19 04/16/19 Range/Units 22:42 22:42 WBC 11.00 H (3.98-10.04) K/mm3 RBC 5.06 (3.98-5.22) M/mm3 Hgb 15.1 (11.2-15.7) gm/L Hct 45.5 H (34.1-44.9) % MCV 89.9 (79.4-94.8) fl MCH 29.8 (25.6-32.2) pg MCHC 33.2 (32.2-35.5) g/dl RDW Std Deviation 45.6 (36.4-46.3) fL Plt Count 294 (182-369) K/mm3 MPV 9.3 L (9.4-12.3) fl Neutrophils % (Manual) 89 H (40-60) % Band Neutrophils % 0 (0-10) % Lymphocytes % (Manual) 9 L (20-40) % Atypical Lymphs % 0 % Monocytes % (Manual) 2 (2-10) % Eosinophils % (Manual) 0 L (0.7-5.8) % Basophils % (Manual) 0 L (0.1-1.2) Platelet Estimate Adequate Plt Morphology Comment Normal RBC Morph Comment Normal Sodium 140 (136-145) mEq/L Potassium 3.8 (3.5-5.1) mEq/L Chloride 102 (98-107) mEq/L Carbon Dioxide 24 (21-32) mEq/L Anion Gap 17.8 H (5-15) BUN 17 (7-18) mg/dL Creatinine 1.3 H (0.55-1.02) mg/dL Est Cr Clr Drug Dosing 44.19 mL/min Estimated GFR (MDRD) 42 (>60) mL/min BUN/Creatinine Ratio 13.1 L (14-18) Glucose 135 H (80-115) mg/dL Calcium 10.5 H (8.5-10.1) mg/dL Magnesium 2.1 (1.8-2.4) mg/dl Total Bilirubin 2.2 H (0.2-1.0) mg/dL AST 23 (15-37) U/L ALT 37 (14-59) U/L Alkaline Phosphatase 101 (46-116) U/L Total Protein 7.6 (6.4-8.2) g/dl Albumin 4.1 (3.4-5.0) g/dl Globulin 3.5 gm/dL Albumin/Globulin Ratio 1.2 (1-2) Lipase 166 (73-393) U/L Med Orders - Current: Current Medications Hydromorphone HCl (Dilaudid) 0.5 mg IVPUSH Q2H PRN PRN Reason: Pain Last Admin: 04/17/19 02:10 Dose: 0.5 mg Sodium Chloride (Normal Saline) 1,000 mls @ 150 mls/hr IV ASDIRECTED WILLIAMS Last Admin: 04/17/19 08:33 Dose: 150 mls/hr Ondansetron HCl (Zofran) 4 mg IVPUSH Q6H PRN PRN Reason: Nausea Discontinued Medications Hydromorphone HCl (Dilaudid) 0.5 mg IVPUSH ONETIME ONE Stop: 04/16/19 22:29 Last Admin: 04/16/19 22:38 Dose: 0.5 mg Sodium Chloride (Normal Saline) 1,000 mls @ 999 mls/hr IV ONETIME ONE Stop: 04/16/19 23:28 Last Admin: 04/16/19 22:38 Dose: 999 mls/hr Metoclopramide HCl (Reglan) 10 mg IVPUSH ONETIME STA Stop: 04/16/19 22:29 Last Admin: 04/16/19 22:39 Dose: 10 mg Ondansetron HCl (Zofran) 4 mg IVPUSH ONETIME ONE Stop: 04/16/19 22:29 Last Admin: 04/16/19 22:39 Dose: 4 mg - Exam General: Alert, Oriented, Cooperative, No Acute Distress HEENT: Other (No scleral icterus) Cardiovascular: Regular Rate GI/Abdominal Exam: Soft, Non-Tender, No Organomegaly, No Distention, No Abnormal Bruit, No Mass Consult PN Assessment/Plan POD#: 0 Procedures: Procedures ASSAY OF LACTIC ACID (04/03/19) ASSAY OF LIPASE (04/03/19) ASSAY OF TROPONIN QUANT (04/03/19) BILIRUBIN DIRECT (04/03/19) BL SMEAR W/DIFF WBC COUNT (04/03/19) C-REACTIVE PROTEIN (04/03/19) COMPLETE CBC AUTOMATED (04/03/19) COMPREHEN METABOLIC PANEL (04/03/19) DXA BONE DENSITY AXIAL (12/02/13) ELECTROCARDIOGRAM TRACING (04/08/19) EMERGENCY DEPT VISIT (04/08/19) EMERGENCY DEPT VISIT (04/03/19) HYDRATE IV INFUSION ADD-ON (04/08/19) ROUTINE VENIPUNCTURE (04/03/19) THER/PROPH/DIAG INJ IV PUSH (04/08/19) TX/PRO/DX INJ NEW DRUG ADDON (04/03/19) TX/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/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) X-RAY EXAM ABDOMEN 2 VIEWS (04/03/19) X-RAY EXAM CHEST 2 VIEWS (04/08/19) (1) Nausea & vomiting SNOMED Code(s): 20764499 Code(s): R11.2 - NAUSEA WITH VOMITING, UNSPECIFIED Priority: Medium Current Visit: Yes Qualifiers: Vomiting type: unspecified Vomiting Intractability: non-intractable Qualified Code(s): R11.2 - Nausea with vomiting, unspecified Assessment:: May be related to Hiatal hernia, SBO or gallbladder dysfunction (2) Hiatal hernia SNOMED Code(s): 91033577 Code(s): K44.9 - DIAPHRAGMATIC HERNIA WITHOUT OBSTRUCTION OR GANGRENE Priority: Medium Current Visit: Yes Assessment:: Could be causing the epigastric pain, N/V. Known from prior EGD, CT. Problem List Initiated/Reviewed/Updated: Yes My Orders Last 24 Hours: My Active Orders 04/17/19 10:18 Abdomen Pelvis w Cont [CT] Routine 04/17/19 Lunch Clear Liquid Diet [DIET] Full Liquid Diet [DIET] 04/18/19 00:01 UGI w KUB [CR] Routine Plan: Will obtain CT a/p with IV contrast to rule out SBO given prior stricture. She will get 1L NS bolus prior to IV contrast Will obtain UGI to evaluate the anatomy of the esophagus and check for the size of the hiatal hernia. Patient has a HIDA scan already scheduled for 04/20. We will follow up the results. At this time, the patient should try liquid and clear diet. I recommended, Ensures for nutrition. If she can keep ensures down, the she can be discharged from the hospital and continue management of her symptoms as an outpatient. It may be reasonable to give her a small amount of pain medications for pain control at home. She will follow up with me in clinic this or Thursday to discuss the results and further plans.
[2019-04-17] MEDS ORDERED: Iopamidol 755 Mg/ML 100 ML Bottle IVPUSH ONE (11:16)
[2019-04-17] MEDS ORDERED: Sodium Chloride 0.9% 1,000 ML IV SCH (11:30)
[2019-04-17] MEDS ORDERED: Sodium Chloride 0.9% 10 ML Syringe FLUSH PRN (12:09)
--- NOTE | 2019-04-17 12:30 | CT ---
CT abdomen and pelvis Technique: Multiple axial sections were obtained from above the dome of the diaphragm inferiorly through the pubic symphysis. Intravenous contrast was utilized. No oral contrast has been given. Comparison: Previous CT abdomen and pelvis exam of 04/01/19. Visualized lung bases shows slight atelectasis. Moderately large hiatal hernia is noted. Liver contains no focal abnormality. Spleen appears within normal limits. Adrenal glands show no nodule. Kidneys show symmetric contrast enhancement without hydronephrosis. No discrete renal mass is seen. Aorta shows no aneurysm. No retroperitoneal adenopathy is seen. Pancreas is within normal limits. Gallbladder contains no calcified gallstones. Diffuse fluid filled and dilated small bowel is noted. Obstruction appears to occur at the terminal ileum. Uncertain if findings are due to scarring from previous inflammatory bowel disease or represent obstruction from small neoplasm at the ileocecal valve. Free fluid is seen within the pelvis most likely reactive from the small bowel obstruction. Scoliosis and degenerative change is noted within the spine. Impression: 1. Diffuse small bowel dilatation containing fluid consistent with small bowel obstruction. Transitional point appears to be at the terminal ileum which may represent scarring from old inflammatory bowel disease. Difficult to completely exclude small tumor as an etiology of the ileocecal valve. 2. Small amount of free fluid most likely reactive from the small bowel obstruction. 3. Other findings believed to be incidental as noted above. Diagnostic code #9
--- NOTE | 2019-04-17 14:19 | PCM.HP.2 ---
H&P History of Present Illness - General Date of Service: 04/17/19 Admit Problem/Dx: Upper abdominal pain, nausea and vomiting Source of Information: Patient, EMS, EMS Notes Reviewed, Family, Old Records - History of Present Illness Initial Comments - Free Text/Narative: 63 year old cauc. female with 6 week hx of abd pain plus minus bloating a nd change in b.h . with hx of prev. gerd and minimal ibs symptoms and hiatal hernia . underwent laparoscopy eval for eval of poss. rt lower bowel wall thickining and changes on c.t scan. hx of colonoscopy as 37 year old . no abd surgeries. pain ruq and sharp and colicky waxing and waning byut not going away . no fever weight loss or chills . no recent travel or uncooked foods . no tainted water . no diarrhea but mild changes in b.h. nausea and gastritis symptoms within minutes of eating and upper endo did not show stricture or obstruction / nor any abnormal path on u.s of liver and g.b. no elevation of amylase and hida scan scheduled but pain worsening again a nd unable to eat. admitted for pain control and surgical eval. and i.v therapy as mild dehydration a nd elavated t.b / creatinine on lab fh of colon cancer in dad in 50s. \ otherwise healthy mild ibs symptoms mild reflux. Onset of Symptoms: Reports: Gradual, Other (6 weeks ago ) Duration of Symptoms: Reports: Week(s): (6), Intermittent Location: Reports: Abdomen Quality: Reports: Ache, Sharp Severity: Moderate Improves with: Reports: None Worsens with: Reports: Eating Associated Symptoms: Reports: No Other Symptoms Abdomen Pain Score (Numeric/FACES): 8 - Related Data Allergies/Adverse Reactions: Allergies Allergy/AdvReac Type Severity Reaction Status Date / Time No Known Allergies Allergy Verified 04/17/19 01:22 Home Medications: Home Meds Multivits, w-Fe,Other Min [Complete Multivitamin] 1 tab PO DAILY 04/03/19 [ History] Oxybutynin Chloride [Ditropan Xl] 10 mg PO DAILY 04/03/19 [History] Propranolol [Inderal LA] 80 mg PO DAILY 04/03/19 [History] Pantoprazole Sodium [Protonix] 40 mg PO DAILY 04/08/19 [History] Hyoscyamine Sulfate [Levsin-Sl] 0.125 mg SL Q4H PRN 04/17/19 [History] Ondansetron [Zofran] 4 mg BUCCAL Q4H PRN 04/17/19 [History] Past Medical History Gastrointestinal History: Reports: Hiatal Hernia Genitourinary History: Reports: Other (See Below) Other Genitourinary History: Hyperactive bladder. 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 - Infectious Disease History Infectious Disease History: Reports: Chicken Pox, Measles, Mumps - Past Surgical History HEENT Surgical History: Reports: Oral Surgery Other HEENT Surgeries/Procedures: wisdom teeth removed. GI Surgical History: Reports: Colonoscopy, EGD, Other (See Below) Other GI Surgeries/Procedures: Laproscopic 04/04/19- looked like adhesion or tumor on CT scan but nothing was discovered. Endoscope on 04/05/19. Done at [facility] in [place] Female Surgical History: Reports: Other (See Below) Other Female Surgeries/Procedures: fibroid in right breast removed. 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) H&P Review of Systems - Review of Systems: Review Of Systems: See Below General: Reports: No Symptoms, Decreased Appetite HEENT: Reports: No Symptoms Pulmonary: Reports: No Symptoms Cardiovascular: Reports: No Symptoms Gastrointestinal: Reports: No Symptoms Genitourinary: Reports: No Symptoms Musculoskeletal: Reports: No Symptoms Skin: Reports: No Symptoms Psychiatric: Reports: No Symptoms Neurological: Reports: No Symptoms Hematologic/Lymphatic: Reports: No Symptoms Immunologic: Reports: No Symptoms, Food Allergy, Seasonal Allergy Exam - Exam Exam: See Below - Vital Signs Vital Signs: Last Vital Signs Temp 36.5 C 04/17/19 07:53 Pulse 59 L 04/17/19 07:53 Resp 16 04/17/19 07:53 BP 135/80 04/17/19 07:53 Pulse Ox 97 04/17/19 07:53 Orthostatic Blood Pressure [ 122/91 Standing] Orthostatic Blood Pressure [ 135/79 Supine] Weight: 67.313 kg - Exam General: Alert, Oriented, 4 HEENT: PERRLA, Hearing Intact, Mucosa Moist & [place], Nares Patent, Normal Nasal Septum, Posterior Pharynx Clear, Conjunctiva Clear, EOMI, EACs Clear, TMs Clear Neck: Supple, Trachea Midline, 2 Lungs: Clear to Auscultation, Normal Respiratory Effort Cardiovascular: Regular Rate, Regular Rhythm GI/Abdominal Exam: Normal Bowel Sounds, Soft, Non-Tender, No Organomegaly, No Distention, No Abnormal Bruit, No Mass, Pelvis Stable, Tender (Female) Exam: Normal External Exam, Normal Speculum Exam, Normal Bimanual Exam Rectal (Female) Exam: Normal Exam, Normal Rectal Tone Back Exam: Normal Inspection, Full Range of Motion, NT Extremities: Normal Inspection, Normal Range of Motion, Non-Tender, No Pedal Edema, Normal Capillary Refill Skin: Warm, Dry, Intact Neurological: Cranial Nerves Intact, Reflexes Equal Bilateral Neuro Extensive - Mental Status: Alert, Oriented x3, Normal Mood/Affect, Normal Cognition Neuro Extensive - Motor, Sensory, Reflexes: CN II-XII Intact, Normal Gait, Normal Reflexes Psychiatric: Alert, Normal Affect, Normal Mood - Patient Data Lab Results Last 24 hrs: Laboratory Results - last 24 hr 04/16/19 04/16/19 Range/Units 22:42 22:42 WBC 11.00 H (3.98-10.04) K/mm3 RBC 5.06 (3.98-5.22) M/mm3 Hgb 15.1 (11.2-15.7) gm/L Hct 45.5 H (34.1-44.9) % MCV 89.9 (79.4-94.8) fl MCH 29.8 (25.6-32.2) pg MCHC 33.2 (32.2-35.5) g/dl RDW Std Deviation 45.6 (36.4-46.3) fL Plt Count 294 (182-369) K/mm3 MPV 9.3 L (9.4-12.3) fl Neutrophils % (Manual) 89 H (40-60) % Band Neutrophils % 0 (0-10) % Lymphocytes % (Manual) 9 L (20-40) % Atypical Lymphs % 0 % Monocytes % (Manual) 2 (2-10) % Eosinophils % (Manual) 0 L (0.7-5.8) % Basophils % (Manual) 0 L (0.1-1.2) Platelet Estimate Adequate Plt Morphology Comment Normal RBC Morph Comment Normal Sodium 140 (136-145) mEq/L Potassium 3.8 (3.5-5.1) mEq/L Chloride 102 (98-107) mEq/L Carbon Dioxide 24 (21-32) mEq/L Anion Gap 17.8 H (5-15) BUN 17 (7-18) mg/dL Creatinine 1.3 H (0.55-1.02) mg/dL Est Cr Clr Drug Dosing 44.19 mL/min Estimated GFR (MDRD) 42 (>60) mL/min BUN/Creatinine Ratio 13.1 L (14-18) Glucose 135 H (80-115) mg/dL Calcium 10.5 H (8.5-10.1) mg/dL Magnesium 2.1 (1.8-2.4) mg/dl Total Bilirubin 2.2 H (0.2-1.0) mg/dL AST 23 (15-37) U/L ALT 37 (14-59) U/L Alkaline Phosphatase 101 (46-116) U/L Total Protein 7.6 (6.4-8.2) g/dl Albumin 4.1 (3.4-5.0) g/dl Globulin 3.5 gm/dL Albumin/Globulin Ratio 1.2 (1-2) Lipase 166 (73-393) U/L Result Diagrams: 04/16/19 22:42 04/16/19 22:42 - Problem List (1) Hiatal hernia SNOMED Code(s): 03895681 ICD Code: K44.9 - DIAPHRAGMATIC HERNIA WITHOUT OBSTRUCTION OR GANGRENE Status: Acute Priority: Medium Current Visit: Yes Onset Date: 04/17/19 (2) Nausea & vomiting SNOMED Code(s): 92813052 ICD Code: R11.2 - NAUSEA WITH VOMITING, UNSPECIFIED Status: Acute Priority: Medium Current Visit: Yes Onset Date: 04/17/19 Qualifiers: Vomiting type: unspecified Vomiting Intractability: non-intractable Qualified Code(s): R11.2 - Nausea with vomiting, unspecified (3) Orthostasis SNOMED Code(s): 02173655 ICD Code: I95.1 - ORTHOSTATIC HYPOTENSION Status: Acute Priority: Medium Current Visit: Yes Onset Date: 04/17/19 (4) Recurrent right upper quadrant abdominal pain SNOMED Code(s): 509186076, 560435765, 054224152 ICD Code: R10.11 - RIGHT UPPER QUADRANT PAIN Status: Acute Priority: Medium Current Visit: Yes Problem List Initiated/Reviewed/Updated: Yes Orders Last 24hrs: Active Orders 24 hr Category Date Time Status Admission Status [Patient Status] [ADT] Routine ADT 04/17/19 00:44 Active Activity as Tolerated [RC] BID Care 04/17/19 03:36 Active Notify Provider Consults [RC] ASDIRECTED Care 04/17/19 03:38 Active Consult to Physician [CONS] Routine Cons 04/17/19 03:37 Active Clear Liquid Diet [DIET] Diet 04/17/19 Breakfast Active Clear Liquid Diet [DIET] Diet 04/17/19 Lunch Active Full Liquid Diet [DIET] Diet 04/17/19 Lunch Active Abdomen 1V Flat [CR] Stat Exams 04/16/19 22:29 Taken UGI w KUB [CR] Routine Exams 04/18/19 00:01 Ordered HYDROmorphone [Dilaudid] Med 04/17/19 01:41 Active 0.5 mg IVPUSH Q2H PRN Ondansetron [Zofran] Med 04/17/19 01:41 Active 4 mg IVPUSH Q6H PRN Sodium Chloride 0.9% [Normal Saline] 1,000 ml Med 04/17/19 01:45 Active IV ASDIRECTED Sodium Chloride 0.9% [Saline Flush] Med 04/17/19 12:09 Active 10 ml FLUSH ONETIME PRN Resuscitation Status Routine Resus Stat 04/17/19 01:41 Ordered Medication Orders Hydromorphone HCl (Dilaudid) 0.5 mg IVPUSH Q2H PRN PRN Reason: Pain Last Admin: 04/17/19 02:10 Dose: 0.5 mg Sodium Chloride (Normal Saline) 1,000 mls @ 150 mls/hr IV ASDIRECTED WILLIAMS Last Admin: 04/17/19 08:33 Dose: 150 mls/hr Infusion: 04/17/19 08:33 Dose: 150 mls/hr Admin: 04/17/19 02:01 Dose: 150 mls/hr Ondansetron HCl (Zofran) 4 mg IVPUSH Q6H PRN PRN Reason: Nausea Last Admin: 04/17/19 10:35 Dose: 4 mg Sodium Chloride (Saline Flush) 10 ml FLUSH ONETIME PRN PRN Reason: Keep Vein Open Last Admin: 04/17/19 12:14 Dose: 10 ml - Mortality Measure Prognosis:: Good
[2019-04-17] MEDS ORDERED: Enoxaparin 30 MG/0.3 ML Syringe SUBCUT SCH (22:00)
--- NOTE | 2019-04-18 07:27 | PCM.PN ---
- General Info Date of Service: 04/17/19 Admission Dx/Problem (Free Text): Upper abdominal pain, nausea and vomiting Subjective Update: patient unchanged but hungry / did not advance feedings per surgery. p.e unchanged ruq pain without gaurding b.s active. ct scan shows small distal bowel dialation/ edema no def mass or volvulus /stricture and that is main findings . assess small bowel abnormality confirmed by c.t plan per surgery rule out upper abnormality and advance feedings after eval. ? if able to eval distal small bowel for abnormality on ctt scan. boh Functional Status: Reports: Pain Controlled, Tolerating Diet - Review of Systems General: Reports: No Symptoms, Appetite HEENT: Reports: No Symptoms Pulmonary: Reports: No Symptoms Cardiovascular: Reports: No Symptoms Gastrointestinal: Reports: No Symptoms, Abdominal Pain, Nausea Genitourinary: Reports: No Symptoms Musculoskeletal: Reports: No Symptoms Skin: Reports: No Symptoms Neurological: Reports: No Symptoms Psychiatric: Reports: No Symptoms - Patient Data Vitals - Most Recent: Last Vital Signs Temp 36.8 C 04/18/19 02:53 Pulse 72 04/18/19 02:53 Resp 18 04/18/19 02:53 BP 122/72 04/18/19 04:10 Pulse Ox 91 L 04/18/19 02:53 Orthostatic Blood Pressure [ 122/91 Standing] Orthostatic Blood Pressure [ 135/79 Supine] Weight - Most Recent: 70.125 kg I&O - Last 24 Hours: Intake & Output 04/17/19 04/18/19 04/18/19 22:59 06:59 14:59 Intake Total 3773 1736 Output Total 1325 2950 Balance 2448 -1214 Lab Results Last 24 Hours: Laboratory Results - last 24 hr 04/18/19 04/18/19 04/18/19 Range/Units 05:31 05:31 05:31 WBC 4.86 (3.98-10.04) K/mm3 RBC 3.81 L (3.98-5.22) M/mm3 Hgb 11.5 D (11.2-15.7) gm/L Hct 34.9 (34.1-44.9) % MCV 91.6 (79.4-94.8) fl MCH 30.2 (25.6-32.2) pg MCHC 33.0 (32.2-35.5) g/dl RDW Std Deviation 46.2 (36.4-46.3) fL Plt Count 237 (182-369) K/mm3 MPV 9.8 (9.4-12.3) fl Neut % (Auto) 53.7 (34.0-71.1) % Lymph % (Auto) 28.8 (19.3-51.7) % [place] % (Auto) 14.4 H (4.7-12.5) % Eos % (Auto) 2.1 (0.7-5.8) Baso % (Auto) 0.6 (0.1-1.2) % Neut # (Auto) 2.61 (1.56-6.13) K/mm3 Lymph # (Auto) 1.40 (1.18-3.74) K/mm3 [place] # (Auto) 0.70 H (0.24-0.36) K/mm3 Eos # (Auto) 0.10 (0.04-0.36) K/mm3 Baso # (Auto) 0.03 (0.01-0.08) K/mm3 D-Dimer, Quantitative 1.90 H (0.19-0.50) mg/L Sodium 143 (136-145) mEq/L Potassium 3.1 L (3.5-5.1) mEq/L Chloride 109 H (98-107) mEq/L Carbon Dioxide 21 (21-32) mEq/L Anion Gap 16.1 H (5-15) BUN 5 L (7-18) mg/dL Creatinine 0.8 (0.55-1.02) mg/dL Est Cr Clr Drug Dosing 71.81 mL/min Estimated GFR (MDRD) > 60 (>60) mL/min BUN/Creatinine Ratio 6.3 L (14-18) Glucose 91 (80-115) mg/dL Calcium 8.5 D (8.5-10.1) mg/dL Total Bilirubin 1.3 H (0.2-1.0) mg/dL AST 18 (15-37) U/L ALT 21 (14-59) U/L Alkaline Phosphatase 74 (46-116) U/L Total Protein 5.3 L (6.4-8.2) g/dl Albumin 2.8 L (3.4-5.0) g/dl Globulin 2.5 gm/dL Albumin/Globulin Ratio 1.1 (1-2) Amylase 48 (25-115) U/L Lipase 192 (73-393) U/L Med Orders - Current: Current Medications Enoxaparin Sodium (Lovenox) 30 mg SUBCUT Q24H [facility] Last Admin: 04/17/19 22:25 Dose: 30 mg Hydromorphone HCl (Dilaudid) 0.5 mg IVPUSH Q2H PRN PRN Reason: Pain Last Admin: 04/17/19 22:32 Dose: 0.5 mg Sodium Chloride (Normal Saline) 1,000 mls @ 150 mls/hr IV ASDIRECTED [facility] Last Admin: 04/17/19 23:17 Dose: 150 mls/hr Potassium Chloride 10 meq/ (Premix) 100 mls @ 100 mls/hr IV Q1H [facility] Stop: 04/18/19 11:29 Ondansetron HCl (Zofran) 4 mg IVPUSH Q6H PRN PRN Reason: Nausea Last Admin: 04/17/19 10:35 Dose: 4 mg Pantoprazole Sodium (Protonix) 40 mg PO DAILY@0700 [facility] Propranolol HCl (Inderal La) 80 mg PO DAILY [facility] Sodium Chloride (Saline Flush) 10 ml FLUSH ONETIME PRN PRN Reason: Keep Vein Open Last Admin: 04/17/19 12:14 Dose: 10 ml Discontinued Medications Hydromorphone HCl (Dilaudid) 0.5 mg IVPUSH ONETIME ONE Stop: 04/16/19 22:29 Last Admin: 04/16/19 22:38 Dose: 0.5 mg Sodium Chloride (Normal Saline) 1,000 mls @ 999 mls/hr IV ONETIME ONE Stop: 04/16/19 23:28 Last Admin: 04/16/19 22:38 Dose: 999 mls/hr Sodium Chloride (Normal Saline) 1,000 mls @ 999 mls/hr IV ASDIRECTED [facility] Stop: 04/17/19 12:31 Last Admin: 04/17/19 10:45 Dose: 999 mls/hr Iopamidol (Isovue-370 (76%)) 100 ml IVPUSH ONETIME ONE Stop: 04/17/19 11:17 Last Admin: 04/17/19 12:09 Dose: 100 ml Metoclopramide HCl (Reglan) 10 mg IVPUSH ONETIME STA Stop: 04/16/19 22:29 Last Admin: 04/16/19 22:39 Dose: 10 mg Ondansetron HCl (Zofran) 4 mg IVPUSH ONETIME ONE Stop: 04/16/19 22:29 Last Admin: 04/16/19 22:39 Dose: 4 mg - Exam General: Alert, Oriented HEENT: Pupils Equal, Pupils Reactive, EOMI, Mucous Membr. Moist/[place] Neck: Supple Lungs: Clear to Auscultation, Normal Respiratory Effort Cardiovascular: Regular Rate, Regular Rhythm GI/Abdominal Exam: Normal Bowel Sounds, Soft, Non-Tender, No Organomegaly, No Distention, No Abnormal Bruit, No Mass, Pelvis Stable (Female) Exam: Normal External Exam, Normal Speculum Exam, Normal Bimanual Exam Back Exam: Normal Inspection, Full Range of Motion Extremities: Normal Inspection, Normal Range of Motion, Non-Tender, No Pedal Edema, Normal Capillary Refill Skin: Warm, Dry, Intact Wound/Incisions: Healing Well Neurological: No New Focal Deficit Psy/Mental Status: Alert, Normal Affect, Normal Mood - Problem List & Annotations (1) Hiatal hernia SNOMED Code(s): 47202156 Code(s): K44.9 - DIAPHRAGMATIC HERNIA WITHOUT OBSTRUCTION OR GANGRENE Status: Acute Priority: Medium Current Visit: Yes Onset Date: 04/17/19 (2) Nausea & vomiting SNOMED Code(s): 25526431 Code(s): R11.2 - NAUSEA WITH VOMITING, UNSPECIFIED Status: Acute Priority : Medium Current Visit: Yes Onset Date: 04/17/19 Qualifiers: Vomiting type: unspecified Vomiting Intractability: non-intractable Qualified Code(s): R11.2 - Nausea with vomiting, unspecified (3) Orthostasis SNOMED Code(s): 38070450 Code(s): I95.1 - ORTHOSTATIC HYPOTENSION Status: Acute Priority: Medium Current Visit: Yes Onset Date: 04/17/19 (4) Recurrent right upper quadrant abdominal pain SNOMED Code(s): 557255082, 372613589, 941065132 Code(s): R10.11 - RIGHT UPPER QUADRANT PAIN Status: Acute Priority: Medium Current Visit: Yes - Problem List Review Problem List Initiated/Reviewed/Updated: Yes - My Orders Last 24 Hours: My Active Orders 04/17/19 12:09 Sodium Chloride 0.9% [Saline Flush] 10 ml FLUSH ONETIME PRN 04/17/19 22:00 Enoxaparin [Lovenox] 30 mg SUBCUT Q24H EKG 12 Lead [EK] Routine 04/18/19 05:31 AMYLASE [CHEM] Routine C-REACTIVE PROTEIN [CHEM] Routine COMPREHENSIVE METABOLIC PN,CMP [CHEM] Routine LIPASE [CHEM] Routine 04/18/19 07:00 Pantoprazole [ProTONIX] 40 mg PO DAILY@0700 04/18/19 07:30 Potassium Chloride [KCl 10 MEQ in Water 100 ML] 10 meq Premix Bag 1 bag IV Q1H 04/18/19 09:00 Propranolol [Inderal LA] 80 mg PO DAILY 04/18/19 Breakfast NPO After Midnight [Nothing per Oral After Midnight Diet] [DIET] - Assessment Assessment:: small bowel abnormality of unknown cause causing distal symptoms but ? obstructive gerd hiatal hernia dehydration elavated t.b without def gb abnormalities on testing so far. upper endoscopy and hida scan / eval small bowel if needed . boh - Plan Plan:: see note
[2019-04-18] MEDS: Sodium Chloride 0.9% 1,000 ML IV SCH ×3 (07:31→16:03)
[2019-04-18] MEDS: Potassium Chloride 10 MEQ in Premix Bag 1 BAG IV SCH ×4 (07:35→11:07)
[2019-04-18] MEDS: HYDROmorphone 0.5 MG/0.5 ML Syringe IVPUSH PRN ×4 (08:40→20:46)
[2019-04-18] MEDS: Pantoprazole 40 MG Tab.CR PO SCH (08:45)
[2019-04-18] MEDS: Propranolol 80 MG Cap.ER PO SCH (08:45)
--- NOTE | 2019-04-18 09:22 | CR ---
Abdomen: Supine view of the abdomen was obtained. Comparison: Prior abdominal x-ray of 04/03/19. Slightly prominent loop of air-filled bowel noted within the mid abdomen. This is most likely due to gas within the sigmoid colon and is incidental. Bowel gas pattern is otherwise unremarkable. Dilated small bowel loops that were seen on prior study are no longer seen. Scoliosis is noted within the spine. Osteopenia is noted. No discrete soft tissue abnormality is seen. Impression: 1. Findings as described above believed to be incidental. Nothing acute is appreciated on supine abdominal x-ray. Diagnostic code #2
--- NOTE | 2019-04-18 12:03 | PCM.PN ---
- General Info Date of Service: 04/18/19 Admission Dx/Problem (Free Text): Upper abdominal pain, nausea and vomiting Subjective Update: patient states that her pain is controlled. Unfortunately she still gets nauseated even with sips of fluid and oral medications. upper GI with small bowel follow-through planned for this afternoon. d-dimer was ordered and was elevated at 1.9. Patient denies any leg pain, swelling, redness or edema in her lower extremities. She also denies any shortness of breath, cough, and is not dyspneic or hypoxic. Functional Status: Reports: Pain Controlled - Review of Systems General: Denies: Night Sweats, Appetite HEENT: Reports: No Symptoms Pulmonary: Reports: No Symptoms. Denies: Shortness of Breath, Cough Cardiovascular: Reports: No Symptoms Gastrointestinal: Reports: Nausea - Patient Data Vitals - Most Recent: Last Vital Signs Temp 98.4 F 04/18/19 08:21 Pulse 66 04/18/19 08:21 Resp 18 04/18/19 08:21 BP 116/79 04/18/19 08:21 Pulse Ox 98 04/18/19 08:21 Orthostatic Blood Pressure [ 122/91 Standing] Orthostatic Blood Pressure [ 135/79 Supine] Weight - Most Recent: 154 lb 9.6 oz I&O - Last 24 Hours: Intake & Output 04/17/19 04/18/19 04/18/19 22:59 06:59 14:59 Intake Total 3773 1736 Output Total 1325 2950 Balance 2448 -1214 Lab Results Last 24 Hours: Laboratory Results - last 24 hr 04/18/19 04/18/19 04/18/19 Range/Units 05:31 05:31 05:31 WBC 4.86 (3.98-10.04) K/mm3 RBC 3.81 L (3.98-5.22) M/mm3 Hgb 11.5 D (11.2-15.7) gm/L Hct 34.9 (34.1-44.9) % MCV 91.6 (79.4-94.8) fl MCH 30.2 (25.6-32.2) pg MCHC 33.0 (32.2-35.5) g/dl RDW Std Deviation 46.2 (36.4-46.3) fL Plt Count 237 (182-369) K/mm3 MPV 9.8 (9.4-12.3) fl Neut % (Auto) 53.7 (34.0-71.1) % Lymph % (Auto) 28.8 (19.3-51.7) % [place] % (Auto) 14.4 H (4.7-12.5) % Eos % (Auto) 2.1 (0.7-5.8) Baso % (Auto) 0.6 (0.1-1.2) % Neut # (Auto) 2.61 (1.56-6.13) K/mm3 Lymph # (Auto) 1.40 (1.18-3.74) K/mm3 [place] # (Auto) 0.70 H (0.24-0.36) K/mm3 Eos # (Auto) 0.10 (0.04-0.36) K/mm3 Baso # (Auto) 0.03 (0.01-0.08) K/mm3 D-Dimer, Quantitative 1.90 H (0.19-0.50) mg/L Sodium 143 (136-145) mEq/L Potassium 3.1 L (3.5-5.1) mEq/L Chloride 109 H (98-107) mEq/L Carbon Dioxide 21 (21-32) mEq/L Anion Gap 16.1 H (5-15) BUN 5 L (7-18) mg/dL Creatinine 0.8 (0.55-1.02) mg/dL Est Cr Clr Drug Dosing 71.81 mL/min Estimated GFR (MDRD) > 60 (>60) mL/min BUN/Creatinine Ratio 6.3 L (14-18) Glucose 91 (80-115) mg/dL Calcium 8.5 D (8.5-10.1) mg/dL Total Bilirubin 1.3 H (0.2-1.0) mg/dL AST 18 (15-37) U/L ALT 21 (14-59) U/L Alkaline Phosphatase 74 (46-116) U/L Total Protein 5.3 L (6.4-8.2) g/dl Albumin 2.8 L (3.4-5.0) g/dl Globulin 2.5 gm/dL Albumin/Globulin Ratio 1.1 (1-2) Amylase 48 (25-115) U/L Lipase 192 (73-393) U/L Med Orders - Current: Current Medications Enoxaparin Sodium (Lovenox) 40 mg SUBCUT Q24H [facility] Hydromorphone HCl (Dilaudid) 0.5 mg IVPUSH Q2H PRN PRN Reason: Pain Last Admin: 04/18/19 08:40 Dose: 0.5 mg Sodium Chloride (Normal Saline) 1,000 mls @ 100 mls/hr IV ASDIRECTED [facility] Last Admin: 04/18/19 11:16 Dose: 100 mls/hr Ondansetron HCl (Zofran) 4 mg IVPUSH Q6H PRN PRN Reason: Nausea Last Admin: 04/17/19 10:35 Dose: 4 mg Pantoprazole Sodium (Protonix) 40 mg PO DAILY@0700 [facility] Last Admin: 04/18/19 08:45 Dose: 40 mg Propranolol HCl (Inderal La) 80 mg PO DAILY [facility] Last Admin: 04/18/19 08:45 Dose: 80 mg Sodium Chloride (Saline Flush) 10 ml FLUSH ONETIME PRN PRN Reason: Keep Vein Open Last Admin: 04/17/19 12:14 Dose: 10 ml Discontinued Medications Enoxaparin Sodium (Lovenox) 30 mg SUBCUT Q24H [facility] Last Admin: 04/17/19 22:25 Dose: 30 mg Hydromorphone HCl (Dilaudid) 0.5 mg IVPUSH ONETIME ONE Stop: 04/16/19 22:29 Last Admin: 04/16/19 22:38 Dose: 0.5 mg Sodium Chloride (Normal Saline) 1,000 mls @ 999 mls/hr IV ONETIME ONE Stop: 04/16/19 23:28 Last Admin: 04/16/19 22:38 Dose: 999 mls/hr Sodium Chloride (Normal Saline) 1,000 mls @ 150 mls/hr IV ASDIRECTED [facility] Last Admin: 04/18/19 07:31 Dose: 150 mls/hr Sodium Chloride (Normal Saline) 1,000 mls @ 999 mls/hr IV ASDIRECTED [facility] Stop: 04/17/19 12:31 Last Admin: 04/17/19 10:45 Dose: 999 mls/hr Potassium Chloride 10 meq/ (Premix) 100 mls @ 100 mls/hr IV Q1H [facility] Stop: 04/18/19 11:29 Last Admin: 04/18/19 11:07 Dose: 100 mls/hr Iopamidol (Isovue-370 (76%)) 100 ml IVPUSH ONETIME ONE Stop: 04/17/19 11:17 Last Admin: 04/17/19 12:09 Dose: 100 ml Metoclopramide HCl (Reglan) 10 mg IVPUSH ONETIME STA Stop: 04/16/19 22:29 Last Admin: 04/16/19 22:39 Dose: 10 mg Ondansetron HCl (Zofran) 4 mg IVPUSH ONETIME ONE Stop: 04/16/19 22:29 Last Admin: 04/16/19 22:39 Dose: 4 mg - Exam Quality Assessment: No: Supplemental Oxygen General: Alert, Oriented HEENT: Pupils Equal Neck: Supple Lungs: Clear to Auscultation, Normal Respiratory Effort Cardiovascular: Regular Rate, Regular Rhythm GI/Abdominal Exam: Soft, Tender (mild right-sided tenderness), Abnormal Bowel Sounds (decreased bowel sounds). No: Normal Bowel Sounds, No Distention, Guarding, Rigid, Rebound Extremities: Normal Inspection, Normal Range of Motion, Non-Tender, No Pedal Edema Skin: Warm, Dry, Intact Neurological: No New Focal Deficit Psy/Mental Status: Alert, Normal Affect, Normal Mood - Problem List Review Problem List Initiated/Reviewed/Updated: Yes - My Orders Last 24 Hours: My Active Orders 04/18/19 11:15 Sodium Chloride 0.9% [Normal Saline] 1,000 ml IV ASDIRECTED 04/18/19 20:00 Enoxaparin [Lovenox] 40 mg SUBCUT Q24H - Plan Plan:: Assessment * Small bowel dissection: CT abdomen and pelvis impression: 1. Diffuse small bowel dilatation containing fluid consistent with small bowel obstruction. Transitional point appears to be at the terminal ileum which may represent scarring from old inflammatory bowel disease. Difficult to completely exclude small tumor as an etiology of the ileocecal valve. 2. Small amount of free fluid most likely reactive from the small bowel obstruction. 3. Other incidental findings. * History of hiatal hernia * positive d-dimer of 1.9. This likely is an insignificant finding. * Hyperbilirubinemia. Total bilirubin down from a 2.1-1.3. Likely reactive. * Hypokalemia: Potassium 3.1. * dehydration with acute renal injury resolved with normalization of creatinine of 0.8. Plan * MedSurg with telemetry * Upper GI with small bowel follow-through ordered for today * Replete potassium * Decrease IV fluids to normal saline at 100 mL an hour * Continue nothing by mouth * Monitor CBC, CMP, and magnesium daily * Surgical consult is greatly appreciated for further management * CODE STATUS: Full code * VTE prophylaxis with Lovenox
--- NOTE | 2019-04-18 17:17 | PCM.CONSN ---
- General Info Date of Service: 04/18/19 Admission Dx/Problem (Free Text): Epigastric pain, nausea and vomiting - Patient Data Vitals - Most Recent: Last Vital Signs Temp 98.4 F 04/18/19 08:21 Pulse 66 04/18/19 08:21 Resp 18 04/18/19 08:21 BP 116/79 04/18/19 08:21 Pulse Ox 98 04/18/19 08:21 Orthostatic Blood Pressure [ 122/91 Standing] Orthostatic Blood Pressure [ 135/79 Supine] Weight - Most Recent: 70.125 kg I&O - Last 24 Hours: Intake & Output 04/18/19 04/18/19 04/18/19 06:59 14:59 22:59 Intake Total 1736 Output Total 2950 Balance -1214 Lab Results Last 24 Hours: Laboratory Results - last 24 hr 04/18/19 04/18/19 04/18/19 Range/Units 05:31 05:31 05:31 WBC 4.86 (3.98-10.04) K/mm3 RBC 3.81 L (3.98-5.22) M/mm3 Hgb 11.5 D (11.2-15.7) gm/L Hct 34.9 (34.1-44.9) % MCV 91.6 (79.4-94.8) fl MCH 30.2 (25.6-32.2) pg MCHC 33.0 (32.2-35.5) g/dl RDW Std Deviation 46.2 (36.4-46.3) fL Plt Count 237 (182-369) K/mm3 MPV 9.8 (9.4-12.3) fl Neut % (Auto) 53.7 (34.0-71.1) % Lymph % (Auto) 28.8 (19.3-51.7) % [place] % (Auto) 14.4 H (4.7-12.5) % Eos % (Auto) 2.1 (0.7-5.8) Baso % (Auto) 0.6 (0.1-1.2) % Neut # (Auto) 2.61 (1.56-6.13) K/mm3 Lymph # (Auto) 1.40 (1.18-3.74) K/mm3 [place] # (Auto) 0.70 H (0.24-0.36) K/mm3 Eos # (Auto) 0.10 (0.04-0.36) K/mm3 Baso # (Auto) 0.03 (0.01-0.08) K/mm3 D-Dimer, Quantitative 1.90 H (0.19-0.50) mg/L Sodium 143 (136-145) mEq/L Potassium 3.1 L (3.5-5.1) mEq/L Chloride 109 H (98-107) mEq/L Carbon Dioxide 21 (21-32) mEq/L Anion Gap 16.1 H (5-15) BUN 5 L (7-18) mg/dL Creatinine 0.8 (0.55-1.02) mg/dL Est Cr Clr Drug Dosing 71.81 mL/min Estimated GFR (MDRD) > 60 (>60) mL/min BUN/Creatinine Ratio 6.3 L (14-18) Glucose 91 (80-115) mg/dL Calcium 8.5 D (8.5-10.1) mg/dL Total Bilirubin 1.3 H (0.2-1.0) mg/dL AST 18 (15-37) U/L ALT 21 (14-59) U/L Alkaline Phosphatase 74 (46-116) U/L Total Protein 5.3 L (6.4-8.2) g/dl Albumin 2.8 L (3.4-5.0) g/dl Globulin 2.5 gm/dL Albumin/Globulin Ratio 1.1 (1-2) Amylase 48 (25-115) U/L Lipase 192 (73-393) U/L Med Orders - Current: Current Medications Enoxaparin Sodium (Lovenox) 40 mg SUBCUT Q24H [facility] Hydromorphone HCl (Dilaudid) 0.5 mg IVPUSH Q2H PRN PRN Reason: Pain Last Admin: 04/18/19 16:02 Dose: 0.5 mg Sodium Chloride (Normal Saline) 1,000 mls @ 100 mls/hr IV ASDIRECTED [facility] Last Admin: 04/18/19 16:03 Dose: 100 mls/hr Ondansetron HCl (Zofran) 4 mg IVPUSH Q6H PRN PRN Reason: Nausea Last Admin: 04/17/19 10:35 Dose: 4 mg Pantoprazole Sodium (Protonix) 40 mg PO DAILY@0700 [facility] Last Admin: 04/18/19 08:45 Dose: 40 mg Propranolol HCl (Inderal La) 80 mg PO DAILY [facility] Last Admin: 04/18/19 08:45 Dose: 80 mg Sodium Chloride (Saline Flush) 10 ml FLUSH ONETIME PRN PRN Reason: Keep Vein Open Last Admin: 04/17/19 12:14 Dose: 10 ml Discontinued Medications Enoxaparin Sodium (Lovenox) 30 mg SUBCUT Q24H [facility] Last Admin: 04/17/19 22:25 Dose: 30 mg Hydromorphone HCl (Dilaudid) 0.5 mg IVPUSH ONETIME ONE Stop: 04/16/19 22:29 Last Admin: 04/16/19 22:38 Dose: 0.5 mg Sodium Chloride (Normal Saline) 1,000 mls @ 999 mls/hr IV ONETIME ONE Stop: 04/16/19 23:28 Last Admin: 04/16/19 22:38 Dose: 999 mls/hr Sodium Chloride (Normal Saline) 1,000 mls @ 150 mls/hr IV ASDIRECTED [facility] Last Admin: 04/18/19 07:31 Dose: 150 mls/hr Sodium Chloride (Normal Saline) 1,000 mls @ 999 mls/hr IV ASDIRECTED [facility] Stop: 04/17/19 12:31 Last Admin: 04/17/19 10:45 Dose: 999 mls/hr Potassium Chloride 10 meq/ (Premix) 100 mls @ 100 mls/hr IV Q1H [facility] Stop: 04/18/19 11:29 Last Admin: 04/18/19 11:07 Dose: 100 mls/hr Iopamidol (Isovue-370 (76%)) 100 ml IVPUSH ONETIME ONE Stop: 04/17/19 11:17 Last Admin: 04/17/19 12:09 Dose: 100 ml Metoclopramide HCl (Reglan) 10 mg IVPUSH ONETIME STA Stop: 04/16/19 22:29 Last Admin: 04/16/19 22:39 Dose: 10 mg Ondansetron HCl (Zofran) 4 mg IVPUSH ONETIME ONE Stop: 04/16/19 22:29 Last Admin: 04/16/19 22:39 Dose: 4 mg - Exam General: Alert, Oriented GI/Abdominal Exam: Soft, Non-Tender, Distended Consult PN Assessment/Plan Procedures: Procedures ASSAY OF LACTIC ACID (04/03/19) ASSAY OF LIPASE (04/03/19) ASSAY OF TROPONIN QUANT (04/03/19) BILIRUBIN DIRECT (04/03/19) BL SMEAR W/DIFF WBC COUNT (04/03/19) C-REACTIVE PROTEIN (04/03/19) COMPLETE CBC AUTOMATED (04/03/19) COMPREHEN METABOLIC PANEL (04/03/19) DXA BONE DENSITY AXIAL (12/02/13) ELECTROCARDIOGRAM TRACING (04/08/19) EMERGENCY DEPT VISIT (04/08/19) EMERGENCY DEPT VISIT (04/03/19) HYDRATE IV INFUSION ADD-ON (04/08/19) ROUTINE VENIPUNCTURE (04/03/19) THER/PROPH/DIAG INJ IV PUSH (04/08/19) TX/PRO/DX INJ NEW DRUG ADDON (04/03/19) TX/PRO/DX INJ SAME DRUG DIRECTOR MOBILE (04/03/19) X-RAY EXAM ABDOMEN 2 VIEWS (04/03/19) X-RAY EXAM CHEST 2 VIEWS (04/08/19) (1) Nausea & vomiting SNOMED Code(s): 73367051 Code(s): R11.2 - NAUSEA WITH VOMITING, UNSPECIFIED Priority: Medium Current Visit: Yes Onset Date: 04/17/19 Qualifiers: Vomiting type: unspecified Vomiting Intractability: non-intractable Qualified Code(s): R11.2 - Nausea with vomiting, unspecified (2) Hiatal hernia SNOMED Code(s): 23998370 Code(s): K44.9 - DIAPHRAGMATIC HERNIA WITHOUT OBSTRUCTION OR GANGRENE Priority: Medium Current Visit: Yes Onset Date: 04/17/19 Problem List Initiated/Reviewed/Updated: No My Orders Last 24 Hours: My Active Orders 04/17/19 19:14 CA 19-9 [REF] Routine CEA [REF] Routine Plan: CT scan revealed findings concerning for small bowel obstruction. I reviewed CT images and compared them with CT images from 04/01. It appears that the small bowel obstruction has progressed due to more diffuse dilation of small bowel compared to the prior CT. The colon is decompressed. Transition point again is at the terminal ileum/cecum. I think this is what is causing the patients symptoms and the hiatal hernia is secondary. Colonoscopy not able to be done due to obstruction precluding prep. Will plan for laparoscopic ileocecectomy, possible right hemicolectomy tomorrow. Hiatal hernia: stable. No need for further work up as SBO likely source of symptoms. If symptoms persist after the surgery, we will address the hernia. No need for further imaging at this time. Gallbladder: We will deal with SBO first.
[2019-04-18] MEDS ORDERED: Lidocaine 1%/Sod Bicarbonate in NS 8.4% 1 ML Syringe IDERM PRN (18:45)
[2019-04-18] MEDS ORDERED: Lactated Ringers 1,000 ML IV SCH (18:45)
--- NOTE | 2019-04-18 19:04 | PCM.PREANE ---
Preanesthetic Assessment - Procedure Proposed Procedure: Laparoscopic hemicolectomy - Anesthesia/Transfusion/Family Hx Anesthesia History: Prior Anesthesia Reaction Type of Anesthesia Reaction: Excessive Nausea/Vomiting (scopalomine patch has helped this in the past ) Family History of Anesthesia Reaction: No Transfusion History: No Prior Transfusion(s) Intubation History: Unknown - Review of Systems General: No Symptoms Pulmonary: No Symptoms Cardiovascular: No Symptoms Gastrointestinal: Abdominal Pain, Diarrhea, Nausea, Vomiting, Other (GERD ) Neurological: No Symptoms Other: Reports: None - Physical Assessment NPO Status Date: 04/17/19 NPO Status Time: 12:00 Vital Signs: Last Vital Signs Temp 36.9 C 04/18/19 08:21 Pulse 66 04/18/19 08:21 Resp 18 04/18/19 08:21 BP 116/79 04/18/19 08:21 Pulse Ox 98 04/18/19 08:21 Orthostatic Blood Pressure [ 122/91 Standing] Orthostatic Blood Pressure [ 135/79 Supine] Height: 1.7 m Weight: 70.125 kg ASA Class: 3 Mental Status: Alert & Oriented x3 Dentition: Reports: Normal Dentition Thyro-Mental Finger Breadths: 3 Mouth Opening Finger Breadths: 5 ROM/Head Extension: Full Lungs: Clear to Auscultation, Normal Respiratory Effort Cardiovascular: Regular Rate, Regular Rhythm - Lab Values: Laboratory Last Values WBC 4.86 K/mm3 (3.98-10.04) 04/18/19 05:31 RBC 3.81 M/mm3 (3.98-5.22) L 04/18/19 05:31 Hgb 11.5 gm/L (11.2-15.7) D 04/18/19 05:31 Hct 34.9 % (34.1-44.9) 04/18/19 05:31 MCV 91.6 fl (79.4-94.8) 04/18/19 05:31 MCH 30.2 pg (25.6-32.2) 04/18/19 05:31 MCHC 33.0 g/dl (32.2-35.5) 04/18/19 05:31 RDW Std Deviation 46.2 fL (36.4-46.3) 04/18/19 05:31 Plt Count 237 K/mm3 (182-369) 04/18/19 05:31 MPV 9.8 fl (9.4-12.3) 04/18/19 05:31 Neut % (Auto) 53.7 % (34.0-71.1) 04/18/19 05:31 Lymph % (Auto) 28.8 % (19.3-51.7) 04/18/19 05:31 [place] % (Auto) 14.4 % (4.7-12.5) H 04/18/19 05:31 Eos % (Auto) 2.1 (0.7-5.8) 04/18/19 05:31 Baso % (Auto) 0.6 % (0.1-1.2) 04/18/19 05:31 Neut # (Auto) 2.61 K/mm3 (1.56-6.13) 04/18/19 05:31 Lymph # (Auto) 1.40 K/mm3 (1.18-3.74) 04/18/19 05:31 [place] # (Auto) 0.70 K/mm3 (0.24-0.36) H 04/18/19 05:31 Eos # (Auto) 0.10 K/mm3 (0.04-0.36) 04/18/19 05:31 Baso # (Auto) 0.03 K/mm3 (0.01-0.08) 04/18/19 05:31 Neutrophils % (Manual) 89 % (40-60) H 04/16/19 22:42 Band Neutrophils % 0 % (0-10) 04/16/19 22:42 Lymphocytes % (Manual) 9 % (20-40) L 04/16/19 22:42 Atypical Lymphs % 0 % 04/16/19 22:42 Monocytes % (Manual) 2 % (2-10) 04/16/19 22:42 Eosinophils % (Manual) 0 % (0.7-5.8) L 04/16/19 22:42 Basophils % (Manual) 0 (0.1-1.2) L 04/16/19 22:42 Platelet Estimate Adequate 04/16/19 22:42 Plt Morphology Comment Normal 04/16/19 22:42 RBC Morph Comment Normal 04/16/19 22:42 D-Dimer, Quantitative 1.90 mg/L (0.19-0.50) H 04/18/19 05:31 Sodium 143 mEq/L (136-145) 04/18/19 05:31 Potassium 3.1 mEq/L (3.5-5.1) L 04/18/19 05:31 Chloride 109 mEq/L (98-107) H 04/18/19 05:31 Carbon Dioxide 21 mEq/L (21-32) 04/18/19 05:31 Anion Gap 16.1 (5-15) H 04/18/19 05:31 BUN 5 mg/dL (7-18) L 04/18/19 05:31 Creatinine 0.8 mg/dL (0.55-1.02) 04/18/19 05:31 Est Cr Clr Drug Dosing 71.81 mL/min 04/18/19 05:31 Estimated GFR (MDRD) > 60 mL/min (>60) 04/18/19 05:31 BUN/Creatinine Ratio 6.3 (14-18) L 04/18/19 05:31 Glucose 91 mg/dL (80-115) 04/18/19 05:31 Calcium 8.5 mg/dL (8.5-10.1) D 04/18/19 05:31 Magnesium 2.1 mg/dl (1.8-2.4) 04/16/19 22:42 Total Bilirubin 1.3 mg/dL (0.2-1.0) H 04/18/19 05:31 AST 18 U/L (15-37) 04/18/19 05:31 ALT 21 U/L (14-59) 04/18/19 05:31 Alkaline Phosphatase 74 U/L (46-116) 04/18/19 05:31 C-Reactive Protein < 0.2 mg/dL (<1.0) 04/18/19 05:31 Total Protein 5.3 g/dl (6.4-8.2) L 04/18/19 05:31 Albumin 2.8 g/dl (3.4-5.0) L 04/18/19 05:31 Globulin 2.5 gm/dL 04/18/19 05:31 Albumin/Globulin Ratio 1.1 (1-2) 04/18/19 05:31 Amylase 48 U/L (25-115) 04/18/19 05:31 Lipase 192 U/L (73-393) 04/18/19 05:31 - Allergies Allergies/Adverse Reactions: Allergies Allergy/AdvReac Type Severity Reaction Status Date / Time No Known Allergies Allergy Verified 04/17/19 01:22 - Blood Blood Available: No - Anesthesia Plan Beta Jen: Propranolol - Acknowledgements Anesthesia Type Planned: General Anesthesia Pt an Appropriate Candidate for the Planned Anesthesia: Yes Alternatives and Risks of Anesthesia Discussed w Pt/Guardian: Yes Pt/Guardian Understands and Agrees with Anesthesia Plan: Yes PreAnesthesia Questionnaire Gastrointestinal History: Reports: Hiatal Hernia Genitourinary History: Reports: Other (See Below) Other Genitourinary History: Hyperactive bladder. FOURTH MATE History: Reports: Musculoskeletal History: Reports: Arthritis, Fracture, Osteoporosis, Other (See Below) Other Musculoskeletal History: Left Fibula Neurological History: Reports: Other (See Below) (Essential tremor) Hematologic History: Reports: Anemia Other Hematologic History: in childhood. - Infectious Disease History Infectious Disease History: Reports: Chicken Pox, Measles, Mumps - Past Surgical History HEENT Surgical History: Reports: Oral Surgery Other HEENT Surgeries/Procedures: wisdom teeth removed. GI Surgical History: Reports: Colonoscopy, EGD, Other (See Below) Other GI Surgeries/Procedures: Laproscopic 04/04/19- looked like adhesion or tumor on CT scan but nothing was discovered. Endoscope on 04/05/19. Done at [facility] in [place] Female Surgical History: Reports: Other (See Below) Other Female Surgeries/Procedures: fibroid in right breast removed. - SUBSTANCE USE Smoking Status *Q: Never Smoker Second Hand Smoke Exposure: No Recreational Drug Use History: No - HOME MEDS Home Medications: Home Meds Multivits, w-Fe,Other Min [Complete Multivitamin] 1 tab PO DAILY 04/03/19 [ History] Oxybutynin Chloride [Ditropan Xl] 10 mg PO DAILY 04/03/19 [History] Propranolol [Inderal LA] 80 mg PO DAILY 04/03/19 [History] Pantoprazole Sodium [Protonix] 40 mg PO DAILY 04/08/19 [History] Hyoscyamine Sulfate [Levsin-Sl] 0.125 mg SL Q4H PRN 04/17/19 [History] Ondansetron [Zofran] 4 mg BUCCAL Q4H PRN 04/17/19 [History] - CURRENT (IN HOUSE) MEDS Current Meds: Current Medications Enoxaparin Sodium (Lovenox) 40 mg SUBCUT Q24H [facility] Hydromorphone HCl (Dilaudid) 0.5 mg IVPUSH Q2H PRN PRN Reason: Pain Last Admin: 04/18/19 16:02 Dose: 0.5 mg Sodium Chloride (Normal Saline) 1,000 mls @ 100 mls/hr IV ASDIRECTED [facility] Last Admin: 04/18/19 16:03 Dose: 100 mls/hr Lactated Ringer's (Ringers, Lactated) 1,000 mls @ 125 mls/hr IV ASDIRECTED [facility] Lidocaine/Sodium Bicarbonate (Buffered Lidocaine 1% In Ns 8.4%) 0.25 ml IDERM ONETIME PRN PRN Reason: Prior to IV Start Ondansetron HCl (Zofran) 4 mg IVPUSH Q6H PRN PRN Reason: Nausea Last Admin: 04/17/19 10:35 Dose: 4 mg Pantoprazole Sodium (Protonix) 40 mg PO DAILY@0700 [facility] Last Admin: 04/18/19 08:45 Dose: 40 mg Propranolol HCl (Inderal La) 80 mg PO DAILY [facility] Last Admin: 04/18/19 08:45 Dose: 80 mg Sodium Chloride (Saline Flush) 10 ml FLUSH ONETIME PRN PRN Reason: Keep Vein Open Last Admin: 04/17/19 12:14 Dose: 10 ml Sodium Chloride (Saline Flush) 10 ml FLUSH ASDIRECTED PRN PRN Reason: Keep Vein Open Discontinued Medications Enoxaparin Sodium (Lovenox) 30 mg SUBCUT Q24H [facility] Last Admin: 04/17/19 22:25 Dose: 30 mg Hydromorphone HCl (Dilaudid) 0.5 mg IVPUSH ONETIME ONE Stop: 04/16/19 22:29 Last Admin: 04/16/19 22:38 Dose: 0.5 mg Sodium Chloride (Normal Saline) 1,000 mls @ 999 mls/hr IV ONETIME ONE Stop: 04/16/19 23:28 Last Admin: 04/16/19 22:38 Dose: 999 mls/hr Sodium Chloride (Normal Saline) 1,000 mls @ 150 mls/hr IV ASDIRECTED [facility] Last Admin: 04/18/19 07:31 Dose: 150 mls/hr Sodium Chloride (Normal Saline) 1,000 mls @ 999 mls/hr IV ASDIRECTED [facility] Stop: 04/17/19 12:31 Last Admin: 04/17/19 10:45 Dose: 999 mls/hr Potassium Chloride 10 meq/ (Premix) 100 mls @ 100 mls/hr IV Q1H [facility] Stop: 04/18/19 11:29 Last Admin: 04/18/19 11:07 Dose: 100 mls/hr Iopamidol (Isovue-370 (76%)) 100 ml IVPUSH ONETIME ONE Stop: 04/17/19 11:17 Last Admin: 04/17/19 12:09 Dose: 100 ml Metoclopramide HCl (Reglan) 10 mg IVPUSH ONETIME STA Stop: 04/16/19 22:29 Last Admin: 04/16/19 22:39 Dose: 10 mg Ondansetron HCl (Zofran) 4 mg IVPUSH ONETIME ONE Stop: 04/16/19 22:29 Last Admin: 04/16/19 22:39 Dose: 4 mg
[2019-04-18] MEDS: Enoxaparin 40 MG/0.4 ML Syringe SUBCUT SCH (20:40)
[2019-04-19] MEDS ORDERED: Sodium Chloride 0.9% 10 ML Syringe FLUSH PRN (00:01)
[2019-04-19] MEDS: Sodium Chloride 0.9% 1,000 ML IV SCH (01:20)
[2019-04-19] MEDS: HYDROmorphone 0.5 MG/0.5 ML Syringe IVPUSH PRN ×7 (01:23→21:16)
[2019-04-19] MEDS: Pantoprazole 40 MG Tab.CR PO SCH (06:30)
[2019-04-19] MEDS ORDERED: Magnesium Sulfate/Water 2 GM in Premix Bag 1 BAG IV ONE (08:04)
[2019-04-19] MEDS ORDERED: Scopolamine 1.5 MG Transdermal Patch TRDERM ONE (08:05)
[2019-04-19] MEDS ORDERED: Dextrose 5%-0.9% NaCl with KCl 1,000 ML IV SCH (08:15)
[2019-04-19] MEDS: Potassium Chloride 10 MEQ in Premix Bag 1 BAG IV SCH ×4 (08:17→16:29)
[2019-04-19] MEDS: Propranolol 80 MG Cap.ER PO SCH (08:25)
[2019-04-19] MEDS ORDERED: Succinylcholine/Normal Saline 100 MG/5 ML Syringe ONE (10:38)
[2019-04-19] MEDS ORDERED: Midazolam 1 MG/ML 2 ML SDV ONE (10:38)
[2019-04-19] MEDS ORDERED: Ondansetron 4 MG/2 ML SDV ONE (10:38)
[2019-04-19] MEDS ORDERED: Lidocaine 1% 4 ML ONE (10:38)
[2019-04-19] MEDS ORDERED: Propofol 200 MG/20 ML SDV ONE (10:38)
[2019-04-19] MEDS ORDERED: Lactated Ringers 1,000 ML ONE (10:38)
[2019-04-19] MEDS ORDERED: fentaNYL 250 MCG/5 ML SDV ONE (10:39)
[2019-04-19] MEDS ORDERED: Rocuronium 50 MG/5 ML Vial ONE (10:39)
[2019-04-19] MEDS ORDERED: Dexamethasone 4 MG/ML 5 ML MDV ONE (10:39)
--- NOTE | 2019-04-19 10:53 | PCM.PN ---
- General Info Date of Service: 04/19/19 Functional Status: Reports: Pain Controlled - Patient Data Vitals - Most Recent: Last Vital Signs Temp 98.2 F 04/19/19 07:48 Pulse 65 04/19/19 07:48 Resp 18 04/19/19 07:48 BP 142/86 H 04/19/19 07:48 Pulse Ox 97 04/19/19 07:48 Orthostatic Blood Pressure [ 122/91 Standing] Orthostatic Blood Pressure [ 135/79 Supine] Weight - Most Recent: 68.039 kg I&O - Last 24 Hours: Intake & Output 04/18/19 04/19/19 04/19/19 22:59 06:59 14:59 Intake Total 1026 1400 Output Total 2000 Balance 1026 -600 Lab Results Last 24 Hours: Laboratory Results - last 24 hr 04/16/19 04/18/19 04/19/19 Range/Units 22:42 05:31 00:15 WBC (3.98-10.04) K/mm3 RBC (3.98-5.22) M/mm3 Hgb (11.2-15.7) gm/L Hct (34.1-44.9) % MCV (79.4-94.8) fl MCH (25.6-32.2) pg MCHC (32.2-35.5) g/dl RDW Std Deviation (36.4-46.3) fL Plt Count (182-369) K/mm3 MPV (9.4-12.3) fl Neut % (Auto) (34.0-71.1) % Lymph % (Auto) (19.3-51.7) % [place] % (Auto) (4.7-12.5) % Eos % (Auto) (0.7-5.8) Baso % (Auto) (0.1-1.2) % Neut # (Auto) (1.56-6.13) K/mm3 Lymph # (Auto) (1.18-3.74) K/mm3 [place] # (Auto) (0.24-0.36) K/mm3 Eos # (Auto) (0.04-0.36) K/mm3 Baso # (Auto) (0.01-0.08) K/mm3 Sodium (136-145) mEq/L Potassium (3.5-5.1) mEq/L Chloride (98-107) mEq/L Carbon Dioxide (21-32) mEq/L Anion Gap (5-15) BUN (7-18) mg/dL Creatinine (0.55-1.02) mg/dL Est Cr Clr Drug Dosing mL/min Estimated GFR (MDRD) (>60) mL/min BUN/Creatinine Ratio (14-18) Glucose (80-115) mg/dL POC Glucose 90 (80-115) mg/dL Calcium (8.5-10.1) mg/dL Magnesium (1.8-2.4) mg/dl Total Bilirubin (0.2-1.0) mg/dL AST (15-37) U/L ALT (14-59) U/L Alkaline Phosphatase (46-116) U/L C-Reactive Protein < 0.2 (<1.0) mg/dL Total Protein (6.4-8.2) g/dl Albumin (3.4-5.0) g/dl Globulin gm/dL Albumin/Globulin Ratio (1-2) Carcinoembryonic Ag 3.3 H (0.0-3.0) ng/mL Blood Type Gel Antibody Screen 04/19/19 04/19/19 04/19/19 Range/Units 05:32 05:32 05:32 WBC 4.26 (3.98-10.04) K/mm3 RBC 3.99 (3.98-5.22) M/mm3 Hgb 11.9 (11.2-15.7) gm/L Hct 36.7 (34.1-44.9) % MCV 92.0 (79.4-94.8) fl MCH 29.8 (25.6-32.2) pg MCHC 32.4 (32.2-35.5) g/dl RDW Std Deviation 46.1 (36.4-46.3) fL Plt Count 256 (182-369) K/mm3 MPV 9.5 (9.4-12.3) fl Neut % (Auto) 57.3 (34.0-71.1) % Lymph % (Auto) 25.4 (19.3-51.7) % [place] % (Auto) 14.3 H (4.7-12.5) % Eos % (Auto) 2.1 (0.7-5.8) Baso % (Auto) 0.7 (0.1-1.2) % Neut # (Auto) 2.44 (1.56-6.13) K/mm3 Lymph # (Auto) 1.08 L (1.18-3.74) K/mm3 [place] # (Auto) 0.61 H (0.24-0.36) K/mm3 Eos # (Auto) 0.09 (0.04-0.36) K/mm3 Baso # (Auto) 0.03 (0.01-0.08) K/mm3 Sodium 142 (136-145) mEq/L Potassium 3.4 L (3.5-5.1) mEq/L Chloride 104 (98-107) mEq/L Carbon Dioxide 24 (21-32) mEq/L Anion Gap 17.4 H (5-15) BUN 4 L (7-18) mg/dL Creatinine 0.7 (0.55-1.02) mg/dL Est Cr Clr Drug Dosing 82.07 mL/min Estimated GFR (MDRD) > 60 (>60) mL/min BUN/Creatinine Ratio 5.7 L (14-18) Glucose 81 (80-115) mg/dL POC Glucose (80-115) mg/dL Calcium 8.6 (8.5-10.1) mg/dL Magnesium 1.5 L (1.8-2.4) mg/dl Total Bilirubin 1.3 H (0.2-1.0) mg/dL AST 19 (15-37) U/L ALT 22 (14-59) U/L Alkaline Phosphatase 79 (46-116) U/L C-Reactive Protein (<1.0) mg/dL Total Protein 5.9 L (6.4-8.2) g/dl Albumin 3.1 L (3.4-5.0) g/dl Globulin 2.8 gm/dL Albumin/Globulin Ratio 1.1 (1-2) Carcinoembryonic Ag (0.0-3.0) ng/mL Blood Type A POSITIVE Gel Antibody Screen Negative 04/19/19 Range/Units 06:33 WBC (3.98-10.04) K/mm3 RBC (3.98-5.22) M/mm3 Hgb (11.2-15.7) gm/L Hct (34.1-44.9) % MCV (79.4-94.8) fl MCH (25.6-32.2) pg MCHC (32.2-35.5) g/dl RDW Std Deviation (36.4-46.3) fL Plt Count (182-369) K/mm3 MPV (9.4-12.3) fl Neut % (Auto) (34.0-71.1) % Lymph % (Auto) (19.3-51.7) % [place] % (Auto) (4.7-12.5) % Eos % (Auto) (0.7-5.8) Baso % (Auto) (0.1-1.2) % Neut # (Auto) (1.56-6.13) K/mm3 Lymph # (Auto) (1.18-3.74) K/mm3 [place] # (Auto) (0.24-0.36) K/mm3 Eos # (Auto) (0.04-0.36) K/mm3 Baso # (Auto) (0.01-0.08) K/mm3 Sodium (136-145) mEq/L Potassium (3.5-5.1) mEq/L Chloride (98-107) mEq/L Carbon Dioxide (21-32) mEq/L Anion Gap (5-15) BUN (7-18) mg/dL Creatinine (0.55-1.02) mg/dL Est Cr Clr Drug Dosing mL/min Estimated GFR (MDRD) (>60) mL/min BUN/Creatinine Ratio (14-18) Glucose (80-115) mg/dL POC Glucose 81 (80-115) mg/dL Calcium (8.5-10.1) mg/dL Magnesium (1.8-2.4) mg/dl Total Bilirubin (0.2-1.0) mg/dL AST (15-37) U/L ALT (14-59) U/L Alkaline Phosphatase (46-116) U/L C-Reactive Protein (<1.0) mg/dL Total Protein (6.4-8.2) g/dl Albumin (3.4-5.0) g/dl Globulin gm/dL Albumin/Globulin Ratio (1-2) Carcinoembryonic Ag (0.0-3.0) ng/mL Blood Type Gel Antibody Screen Med Orders - Current: Current Medications Enoxaparin Sodium (Lovenox) 40 mg SUBCUT Q24H [facility] Last Admin: 04/18/19 20:40 Dose: Not Given Hydromorphone HCl (Dilaudid) 0.5 mg IVPUSH Q2H PRN PRN Reason: Pain Last Admin: 04/19/19 10:15 Dose: 0.5 mg Lactated Ringer's (Ringers, Lactated) 1,000 mls @ 125 mls/hr IV ASDIRECTED [facility] Potassium Chloride/Dextrose/Sod Cl (D5 Ns With 20 Meq Kcl) 1,000 mls @ 100 mls/ hr IV ASDIRECTED [facility] Potassium Chloride 10 meq/ (Premix) 100 mls @ 100 mls/hr IV Q1H [facility] Stop: 04/19/19 12:14 Last Admin: 04/19/19 10:39 Dose: 100 mls/hr Lidocaine/Sodium Bicarbonate (Buffered Lidocaine 1% In Ns 8.4%) 0.25 ml IDERM ONETIME PRN PRN Reason: Prior to IV Start Miscellaneous Information (Remove Patch) 0 ea TRDERM ONETIME ONE Stop: 04/22/19 08:01 Ondansetron HCl (Zofran) 4 mg IVPUSH Q6H PRN PRN Reason: Nausea Last Admin: 04/17/19 10:35 Dose: 4 mg Pantoprazole Sodium (Protonix) 40 mg PO DAILY@0700 [facility] Last Admin: 04/19/19 06:30 Dose: 40 mg Propranolol HCl (Inderal La) 80 mg PO DAILY [facility] Last Admin: 04/19/19 08:25 Dose: 80 mg Sodium Chloride (Saline Flush) 10 ml FLUSH ASDIRECTED PRN PRN Reason: Keep Vein Open Discontinued Medications Dexamethasone (Dexamethasone) Confirm Administered Dose 20 mg .ROUTE .STK-MED ONE Stop: 04/19/19 10:40 Enoxaparin Sodium (Lovenox) 30 mg SUBCUT Q24H [facility] Last Admin: 04/17/19 22:25 Dose: 30 mg Fentanyl (Sublimaze) Confirm Administered Dose 250 mcg .ROUTE .STK-MED ONE Stop: 04/19/19 10:40 Hydromorphone HCl (Dilaudid) 0.5 mg IVPUSH ONETIME ONE Stop: 04/16/19 22:29 Last Admin: 04/16/19 22:38 Dose: 0.5 mg Sodium Chloride (Normal Saline) 1,000 mls @ 999 mls/hr IV ONETIME ONE Stop: 04/16/19 23:28 Last Admin: 04/16/19 22:38 Dose: 999 mls/hr Sodium Chloride (Normal Saline) 1,000 mls @ 150 mls/hr IV ASDIRECTED [facility] Last Admin: 04/18/19 07:31 Dose: 150 mls/hr Sodium Chloride (Normal Saline) 1,000 mls @ 999 mls/hr IV ASDIRECTED [facility] Stop: 04/17/19 12:31 Last Admin: 04/17/19 10:45 Dose: 999 mls/hr Potassium Chloride 10 meq/ (Premix) 100 mls @ 100 mls/hr IV Q1H [facility] Stop: 04/18/19 11:29 Last Admin: 04/18/19 11:07 Dose: 100 mls/hr Sodium Chloride (Normal Saline) 1,000 mls @ 100 mls/hr IV ASDIRECTED [facility] Stop: 04/19/19 11:00 Last Admin: 04/19/19 01:20 Dose: 100 mls/hr Lactated Ringer's (Ringers, Lactated) 1,000 mls @ 125 mls/hr IV ASDIRECTED [facility] Magnesium Sulfate 2 gm/ Premix 50 mls @ 25 mls/hr IV ONETIME ONE Stop: 04/19/19 10:03 Last Admin: 04/19/19 08:17 Dose: 25 mls/hr Lidocaine HCl (Xylocaine-Mpf 1%) Confirm Administered Dose 4 mls @ as directed .ROUTE .STK-MED ONE Stop: 04/19/19 10:39 Lactated Ringer's (Ringers, Lactated) Confirm Administered Dose 1,000 mls @ as directed .ROUTE .STK-MED ONE Stop: 04/19/19 10:39 Iopamidol (Isovue-370 (76%)) 100 ml IVPUSH ONETIME ONE Stop: 04/17/19 11:17 Last Admin: 04/17/19 12:09 Dose: 100 ml Metoclopramide HCl (Reglan) 10 mg IVPUSH ONETIME STA Stop: 04/16/19 22:29 Last Admin: 04/16/19 22:39 Dose: 10 mg Midazolam HCl (Versed 1 Mg/Ml) Confirm Administered Dose 2 mg .ROUTE .STK-MED ONE Stop: 04/19/19 10:39 Ondansetron HCl (Zofran) 4 mg IVPUSH ONETIME ONE Stop: 04/16/19 22:29 Last Admin: 04/16/19 22:39 Dose: 4 mg Ondansetron HCl (Zofran) Confirm Administered Dose 4 mg .ROUTE .STK-MED ONE Stop: 04/19/19 10:39 Propofol (Diprivan 20 Ml) Confirm Administered Dose 400 mg .ROUTE .STK-MED ONE Stop: 04/19/19 10:39 Rocuronium [place] (Zemuron) Confirm Administered Dose 50 mg .ROUTE .STK-MED ONE Stop: 04/19/19 10:40 Scopolamine (Transderm-Scop) 1.5 mg TRDERM ONETIME ONE Stop: 04/19/19 08:06 Last Admin: 04/19/19 08:24 Dose: 1.5 mg Sodium Chloride (Saline Flush) 10 ml FLUSH ONETIME PRN PRN Reason: Keep Vein Open Last Admin: 04/17/19 12:14 Dose: 10 ml Succinylcholine Chloride (Succinylcholine In Ns Pf) Confirm Administered Dose 100 mg .ROUTE .STK-MED ONE Stop: 04/19/19 10:39 - Exam General: Alert, Oriented, Cooperative GI/Abdominal Exam: Soft, Non-Tender, Distended Wound/Incisions: Healing Well - Problem List & Annotations (1) Nausea & vomiting SNOMED Code(s): 05102185 Code(s): R11.2 - NAUSEA WITH VOMITING, UNSPECIFIED Status: Acute Priority : Medium Current Visit: Yes Onset Date: 04/17/19 Qualifiers: Vomiting type: unspecified Vomiting Intractability: non-intractable Qualified Code(s): R11.2 - Nausea with vomiting, unspecified (2) Hiatal hernia SNOMED Code(s): 46346732 Code(s): K44.9 - DIAPHRAGMATIC HERNIA WITHOUT OBSTRUCTION OR GANGRENE Status: Acute Priority: Medium Current Visit: Yes Onset Date: 04/17/19 - Problem List Review Problem List Initiated/Reviewed/Updated: No - My Orders Last 24 Hours: My Active Orders 04/19/19 09:24 PATIENT RETYPE [BBK] Routine 04/19/19 12:00 Schedule Procedure [COMM] Timed - Assessment Assessment:: small bowel abnormality of unknown cause causing distal symptoms but ? obstructive gerd hiatal hernia dehydration elavated t.b without def gb abnormalities on testing so far. upper endoscopy and hida scan / eval small bowel if needed . 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 CEA slightly elevated. Will plan for surgery today. I discussed with the patient risks, benefits and alternatives. She agrees to proceed and informed consent was signed.
[2019-04-19] MEDS ORDERED: Lactated Ringers 1,000 ML IV SCH ×2 (11:00→20:45)
[2019-04-19] MEDS ORDERED: Lidocaine 1% 50 ML MDV ONE (11:08)
[2019-04-19] MEDS ORDERED: Ertapenem 1 GM in Sodium Chloride 0.9% 50 ML IV ONE (11:30)
[2019-04-19] MEDS ORDERED: Phenylephrine/Normal Saline 100 MCG/ML 10 ML Syringe ONE (11:33)
[2019-04-19] MEDS ORDERED: ePHEDrine/Normal Saline 25 MG/5 ML Syringe ONE ×2 (11:43→12:22)
[2019-04-19] MEDS ORDERED: Ketamine 500 mg/10 ML MDV ONE (11:54)
[2019-04-19] MEDS ORDERED: Ondansetron 4 MG/2 ML SDV IVPUSH PRN (12:35)
[2019-04-19] MEDS ORDERED: fentaNYL 100 MCG/2 ML SDV IVPUSH PRN (12:35)
[2019-04-19] MEDS ORDERED: diphenhydrAMINE 50 MG/ML SDV IVPUSH PRN (12:35)
[2019-04-19] MEDS ORDERED: Neostigmine Methylsulfate 1 MG/ML 5 ML Syringe ONE (13:34)
[2019-04-19] MEDS ORDERED: Ketorolac 30 MG/ML SDV ONE (13:46)
--- NOTE | 2019-04-19 14:12 | PCM.OPNOTE ---
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 Second surgeon assisted with retraction of the bowel during dissection and creation of ileocolonic anastomosis Role of Foot Caster: Patient positioning, camera holding Fluid Replacement, Intraop: 1,700 Output, Urine Amount: 500 EBL in mLs: 50 Complications: None Condition: Good Free Text/Narrative:: Intake & Output 04/18/19 04/19/19 04/19/19 22:59 06:59 14:59 Intake Total 1026 1400 Output Total 1999 Balance 1026 -600
--- NOTE | 2019-04-19 14:23 | PCM.POSTAN ---
POST ANESTHESIA ASSESSMENT - MENTAL STATUS Mental Status: Other (Drowsy) - VITAL SIGNS Vital Signs: Last Vital Signs Temp 36.8 C 04/19/19 11:08 Pulse 62 04/19/19 11:08 Resp 16 04/19/19 11:08 BP 153/70 H 04/19/19 11:08 Pulse Ox 94 L 04/19/19 11:08 Orthostatic Blood Pressure [ 122/91 Standing] Orthostatic Blood Pressure [ 135/79 Supine] - RESPIRATORY Respiratory Status: Respiratory Rate WNL, Airway Patent, O2 Saturation Stable, Supplemental Oxygen - CARDIOVASCULAR CV Status: Pulse Rate WNL, Blood Pressure Stable - GASTROINTESTINAL GI Status: No Symptoms - PAIN Pain Score: 0 - POST OP HYDRATION Hydration Status: Adequate & Stable
--- NOTE | 2019-04-19 16:25 | PCM.PN ---
- General Info Date of Service: 04/19/19 Admission Dx/Problem (Free Text): Epigastric pain, nausea and vomiting Subjective Update: Maritza is post op for right hemicolectomy this am. She states she does have some pain, but it is manageable. She denies cp, sob, n/v. - Review of Systems General: Reports: Fatigue HEENT: Reports: No Symptoms Pulmonary: Reports: No Symptoms Cardiovascular: Reports: No Symptoms Gastrointestinal: Reports: Abdominal Pain - Patient Data Vitals - Most Recent: Last Vital Signs Temp 97.7 F 04/19/19 15:27 Pulse 62 04/19/19 11:08 Resp 14 04/19/19 15:27 BP 137/69 04/19/19 15:27 Pulse Ox 96 04/19/19 15:27 Orthostatic Blood Pressure [ 122/91 Standing] Orthostatic Blood Pressure [ 135/79 Supine] Weight - Most Recent: 150 lb I&O - Last 24 Hours: Intake & Output 04/19/19 04/19/19 04/19/19 06:59 14:59 22:59 Intake Total 1400 1700 150 Output Total 2000 1000 650 Balance -600 700 -500 Lab Results Last 24 Hours: Laboratory Results - last 24 hr 04/16/19 04/18/19 04/19/19 Range/Units 22:42 05:31 00:15 WBC (3.98-10.04) K/mm3 RBC (3.98-5.22) M/mm3 Hgb (11.2-15.7) gm/L Hct (34.1-44.9) % MCV (79.4-94.8) fl MCH (25.6-32.2) pg MCHC (32.2-35.5) g/dl RDW Std Deviation (36.4-46.3) fL Plt Count (182-369) K/mm3 MPV (9.4-12.3) fl Neut % (Auto) (34.0-71.1) % Lymph % (Auto) (19.3-51.7) % Leslie % (Auto) (4.7-12.5) % Eos % (Auto) (0.7-5.8) Baso % (Auto) (0.1-1.2) % Neut # (Auto) (1.56-6.13) K/mm3 Lymph # (Auto) (1.18-3.74) K/mm3 Leslie # (Auto) (0.24-0.36) K/mm3 Eos # (Auto) (0.04-0.36) K/mm3 Baso # (Auto) (0.01-0.08) K/mm3 Sodium (136-145) mEq/L Potassium (3.5-5.1) mEq/L Chloride (98-107) mEq/L Carbon Dioxide (21-32) mEq/L Anion Gap (5-15) BUN (7-18) mg/dL Creatinine (0.55-1.02) mg/dL Est Cr Clr Drug Dosing mL/min Estimated GFR (MDRD) (>60) mL/min BUN/Creatinine Ratio (14-18) Glucose (80-115) mg/dL POC Glucose 90 (80-115) mg/dL Calcium (8.5-10.1) mg/dL Magnesium (1.8-2.4) mg/dl Total Bilirubin (0.2-1.0) mg/dL AST (15-37) U/L ALT (14-59) U/L Alkaline Phosphatase (46-116) U/L C-Reactive Protein < 0.2 (<1.0) mg/dL Total Protein (6.4-8.2) g/dl Albumin (3.4-5.0) g/dl Globulin gm/dL Albumin/Globulin Ratio (1-2) Carcinoembryonic Ag 3.3 H (0.0-3.0) ng/mL Blood Type Gel Antibody Screen 04/19/19 04/19/19 04/19/19 Range/Units 05:32 05:32 05:32 WBC 4.26 (3.98-10.04) K/mm3 RBC 3.99 (3.98-5.22) M/mm3 Hgb 11.9 (11.2-15.7) gm/L Hct 36.7 (34.1-44.9) % MCV 92.0 (79.4-94.8) fl MCH 29.8 (25.6-32.2) pg MCHC 32.4 (32.2-35.5) g/dl RDW Std Deviation 46.1 (36.4-46.3) fL Plt Count 256 (182-369) K/mm3 MPV 9.5 (9.4-12.3) fl Neut % (Auto) 57.3 (34.0-71.1) % Lymph % (Auto) 25.4 (19.3-51.7) % Leslie % (Auto) 14.3 H (4.7-12.5) % Eos % (Auto) 2.1 (0.7-5.8) Baso % (Auto) 0.7 (0.1-1.2) % Neut # (Auto) 2.44 (1.56-6.13) K/mm3 Lymph # (Auto) 1.08 L (1.18-3.74) K/mm3 Leslie # (Auto) 0.61 H (0.24-0.36) K/mm3 Eos # (Auto) 0.09 (0.04-0.36) K/mm3 Baso # (Auto) 0.03 (0.01-0.08) K/mm3 Sodium 142 (136-145) mEq/L Potassium 3.4 L (3.5-5.1) mEq/L Chloride 104 (98-107) mEq/L Carbon Dioxide 24 (21-32) mEq/L Anion Gap 17.4 H (5-15) BUN 4 L (7-18) mg/dL Creatinine 0.7 (0.55-1.02) mg/dL Est Cr Clr Drug Dosing 82.07 mL/min Estimated GFR (MDRD) > 60 (>60) mL/min BUN/Creatinine Ratio 5.7 L (14-18) Glucose 81 (80-115) mg/dL POC Glucose (80-115) mg/dL Calcium 8.6 (8.5-10.1) mg/dL Magnesium 1.5 L (1.8-2.4) mg/dl Total Bilirubin 1.3 H (0.2-1.0) mg/dL AST 19 (15-37) U/L ALT 22 (14-59) U/L Alkaline Phosphatase 79 (46-116) U/L C-Reactive Protein (<1.0) mg/dL Total Protein 5.9 L (6.4-8.2) g/dl Albumin 3.1 L (3.4-5.0) g/dl Globulin 2.8 gm/dL Albumin/Globulin Ratio 1.1 (1-2) Carcinoembryonic Ag (0.0-3.0) ng/mL Blood Type A POSITIVE Gel Antibody Screen Negative 04/19/19 04/19/19 Range/Units 06:33 11:11 WBC (3.98-10.04) K/mm3 RBC (3.98-5.22) M/mm3 Hgb (11.2-15.7) gm/L Hct (34.1-44.9) % MCV (79.4-94.8) fl MCH (25.6-32.2) pg MCHC (32.2-35.5) g/dl RDW Std Deviation (36.4-46.3) fL Plt Count (182-369) K/mm3 MPV (9.4-12.3) fl Neut % (Auto) (34.0-71.1) % Lymph % (Auto) (19.3-51.7) % Leslie % (Auto) (4.7-12.5) % Eos % (Auto) (0.7-5.8) Baso % (Auto) (0.1-1.2) % Neut # (Auto) (1.56-6.13) K/mm3 Lymph # (Auto) (1.18-3.74) K/mm3 Leslie # (Auto) (0.24-0.36) K/mm3 Eos # (Auto) (0.04-0.36) K/mm3 Baso # (Auto) (0.01-0.08) K/mm3 Sodium (136-145) mEq/L Potassium (3.5-5.1) mEq/L Chloride (98-107) mEq/L Carbon Dioxide (21-32) mEq/L Anion Gap (5-15) BUN (7-18) mg/dL Creatinine (0.55-1.02) mg/dL Est Cr Clr Drug Dosing mL/min Estimated GFR (MDRD) (>60) mL/min BUN/Creatinine Ratio (14-18) Glucose (80-115) mg/dL POC Glucose 81 82 (80-115) mg/dL Calcium (8.5-10.1) mg/dL Magnesium (1.8-2.4) mg/dl Total Bilirubin (0.2-1.0) mg/dL AST (15-37) U/L ALT (14-59) U/L Alkaline Phosphatase (46-116) U/L C-Reactive Protein (<1.0) mg/dL Total Protein (6.4-8.2) g/dl Albumin (3.4-5.0) g/dl Globulin gm/dL Albumin/Globulin Ratio (1-2) Carcinoembryonic Ag (0.0-3.0) ng/mL Blood Type Gel Antibody Screen Med Orders - Current: Current Medications Enoxaparin Sodium (Lovenox) 40 mg SUBCUT Q24H [facility] Last Admin: 04/18/19 20:40 Dose: Not Given Hydromorphone HCl (Dilaudid) 0.5 mg IVPUSH Q2H PRN PRN Reason: Pain Last Admin: 04/19/19 10:15 Dose: 0.5 mg Lactated Ringer's (Ringers, Lactated) 1,000 mls @ 125 mls/hr IV ASDIRECTED [facility] Potassium Chloride/Dextrose/Sod Cl (D5 Ns With 20 Meq Kcl) 1,000 mls @ 100 mls/ hr IV ASDIRECTED [facility] Lidocaine/Sodium Bicarbonate (Buffered Lidocaine 1% In Ns 8.4%) 0.25 ml IDERM ONETIME PRN PRN Reason: Prior to IV Start Miscellaneous Information (Remove Patch) 0 ea TRDERM ONETIME ONE Stop: 04/22/19 08:01 Ondansetron HCl (Zofran) 4 mg IVPUSH Q6H PRN PRN Reason: Nausea Last Admin: 04/17/19 10:35 Dose: 4 mg Pantoprazole Sodium (Protonix) 40 mg PO DAILY@0700 [facility] Last Admin: 04/19/19 06:30 Dose: 40 mg Propranolol HCl (Inderal La) 80 mg PO DAILY [facility] Last Admin: 04/19/19 08:25 Dose: 80 mg Sodium Chloride (Saline Flush) 10 ml FLUSH ASDIRECTED PRN PRN Reason: Keep Vein Open Discontinued Medications Dexamethasone (Dexamethasone) Confirm Administered Dose 20 mg .ROUTE .STK-MED ONE Stop: 04/19/19 10:40 Diphenhydramine HCl (Benadryl) 25 mg IVPUSH Q6H PRN PRN Reason: Pruritis Stop: 04/19/19 16:00 Enoxaparin Sodium (Lovenox) 30 mg SUBCUT Q24H [facility] Last Admin: 04/17/19 22:25 Dose: 30 mg Ephedrine Sulfate (Ephedrine In Ns) Confirm Administered Dose 25 mg .ROUTE .STK- MED ONE Stop: 04/19/19 11:44 Ephedrine Sulfate (Ephedrine In Ns) Confirm Administered Dose 25 mg .ROUTE .STK- MED ONE Stop: 04/19/19 12:23 Fentanyl (Sublimaze) Confirm Administered Dose 250 mcg .ROUTE .STK-MED ONE Stop: 04/19/19 10:40 Fentanyl (Sublimaze) 50 mcg IVPUSH Q5M PRN PRN Reason: Pain Stop: 04/19/19 16:00 Last Admin: 04/19/19 15:09 Dose: 50 mcg Glycopyrrolate () Confirm Administered Dose 1 mg .ROUTE .STK-MED ONE Stop: 04/19/19 13:35 Hydromorphone HCl (Dilaudid) 0.5 mg IVPUSH ONETIME ONE Stop: 04/16/19 22:29 Last Admin: 04/16/19 22:38 Dose: 0.5 mg Hydromorphone HCl (Dilaudid) 0.5 mg IVPUSH Q15M PRN PRN Reason: severe pain Stop: 04/19/19 16:00 Last Admin: 04/19/19 15:20 Dose: 0.5 mg Sodium Chloride (Normal Saline) 1,000 mls @ 999 mls/hr IV ONETIME ONE Stop: 04/16/19 23:28 Last Admin: 04/16/19 22:38 Dose: 999 mls/hr Sodium Chloride (Normal Saline) 1,000 mls @ 150 mls/hr IV ASDIRECTED [facility] Last Admin: 04/18/19 07:31 Dose: 150 mls/hr Sodium Chloride (Normal Saline) 1,000 mls @ 999 mls/hr IV ASDIRECTED [facility] Stop: 04/17/19 12:31 Last Admin: 04/17/19 10:45 Dose: 999 mls/hr Potassium Chloride 10 meq/ (Premix) 100 mls @ 100 mls/hr IV Q1H [facility] Stop: 04/18/19 11:29 Last Admin: 04/18/19 11:07 Dose: 100 mls/hr Sodium Chloride (Normal Saline) 1,000 mls @ 100 mls/hr IV ASDIRECTED [facility] Stop: 04/19/19 11:00 Last Admin: 04/19/19 01:20 Dose: 100 mls/hr Lactated Ringer's (Ringers, Lactated) 1,000 mls @ 125 mls/hr IV ASDIRECTED [facility] Magnesium Sulfate 2 gm/ Premix 50 mls @ 25 mls/hr IV ONETIME ONE Stop: 04/19/19 10:03 Last Admin: 04/19/19 08:17 Dose: 25 mls/hr Potassium Chloride 10 meq/ (Premix) 100 mls @ 100 mls/hr IV Q1H [facility] Stop: 04/19/19 12:14 Last Admin: 04/19/19 10:39 Dose: 100 mls/hr Lidocaine HCl (Xylocaine-Mpf 1%) Confirm Administered Dose 4 mls @ as directed .ROUTE .STK-MED ONE Stop: 04/19/19 10:39 Lactated Ringer's (Ringers, Lactated) Confirm Administered Dose 1,000 mls @ as directed .ROUTE .STK-MED ONE Stop: 04/19/19 10:39 Ertapenem 1 gm/ Sodium (Chloride) 50 mls @ 100 mls/hr IV ONETIME ONE Stop: 04/19/19 11:59 Iopamidol (Isovue-370 (76%)) 100 ml IVPUSH ONETIME ONE Stop: 04/17/19 11:17 Last Admin: 04/17/19 12:09 Dose: 100 ml Ketamine HCl (Ketalar) Confirm Administered Dose 500 mg .ROUTE .STK-MED ONE Stop: 04/19/19 11:55 Ketorolac Tromethamine (Toradol) Confirm Administered Dose 30 mg .ROUTE .STK- MED ONE Stop: 04/19/19 13:47 Lidocaine HCl (Xylocaine 1%) Confirm Administered Dose 50 ml .ROUTE .STK-MED ONE Stop: 04/19/19 11:09 Last Admin: 04/19/19 11:53 Dose: 25 ml Metoclopramide HCl (Reglan) 10 mg IVPUSH ONETIME STA Stop: 04/16/19 22:29 Last Admin: 04/16/19 22:39 Dose: 10 mg Midazolam HCl (Versed 1 Mg/Ml) Confirm Administered Dose 2 mg .ROUTE .STK-MED ONE Stop: 04/19/19 10:39 Neostigmine Methylsulfate (Neostigmine) Confirm Administered Dose 5 mg .ROUTE .STK-MED ONE Stop: 04/19/19 13:35 Ondansetron HCl (Zofran) 4 mg IVPUSH ONETIME ONE Stop: 04/16/19 22:29 Last Admin: 04/16/19 22:39 Dose: 4 mg Ondansetron HCl (Zofran) Confirm Administered Dose 4 mg .ROUTE .STK-MED ONE Stop: 04/19/19 10:39 Ondansetron HCl (Zofran) 4 mg IVPUSH ONETIME PRN PRN Reason: Nausea/Vomiting Stop: 04/19/19 16:00 Phenylephrine HCl (Phenylephrine In Ns 100 Mcg/Ml) Confirm Administered Dose 1 mg .ROUTE .STK-MED ONE Stop: 04/19/19 11:34 Propofol (Diprivan 20 Ml) Confirm Administered Dose 400 mg .ROUTE .STK-MED ONE Stop: 04/19/19 10:39 Rocuronium Monon (Zemuron) Confirm Administered Dose 50 mg .ROUTE .STK-MED ONE Stop: 04/19/19 10:40 Scopolamine (Transderm-Scop) 1.5 mg TRDERM ONETIME ONE Stop: 04/19/19 08:06 Last Admin: 04/19/19 08:24 Dose: 1.5 mg Sodium Chloride (Saline Flush) 10 ml FLUSH ONETIME PRN PRN Reason: Keep Vein Open Last Admin: 04/17/19 12:14 Dose: 10 ml Succinylcholine Chloride (Succinylcholine In Ns Pf) Confirm Administered Dose 100 mg .ROUTE .STK-MED ONE Stop: 04/19/19 10:39 - Exam General: Alert, Oriented HEENT: Pupils Equal Neck: Supple Lungs: Clear to Auscultation, Normal Respiratory Effort Cardiovascular: Regular Rate, Regular Rhythm GI/Abdominal Exam: No: Normal Bowel Sounds (decreased) Extremities: Normal Inspection, No Pedal Edema Skin: Warm, Dry, Intact Neurological: No New Focal Deficit Psy/Mental Status: Alert, Normal Affect, Normal Mood - Problem List Review Problem List Initiated/Reviewed/Updated: Yes - My Orders Last 24 Hours: My Active Orders 04/18/19 20:00 Enoxaparin [Lovenox] 40 mg SUBCUT Q24H 04/18/19 21:15 POC Glucose [Blood Glucose Check, Bedside] [RC] Q6HR 04/18/19 Dinner NPO [Nothing Per Oral Diet] [DIET] 04/19/19 08:15 Dextrose 5%-0.9% NaCl with KCl [D5 NS with 20 mEq KCl] 1,000 ml IV ASDIRECTED 04/20/19 05:11 CBC WITH AUTO DIFF [HEME] AM CMP [COMPREHENSIVE METABOLIC PN,CMP] [CHEM] AM MAGNESIUM [CHEM] AM 04/21/19 05:11 CBC WITH AUTO DIFF [HEME] AM CMP [COMPREHENSIVE METABOLIC PN,CMP] [CHEM] AM MAGNESIUM [CHEM] AM 04/22/19 05:11 CBC WITH AUTO DIFF [HEME] AM CMP [COMPREHENSIVE METABOLIC PN,CMP] [CHEM] AM MAGNESIUM [CHEM] AM 04/23/19 05:11 CBC WITH AUTO DIFF [HEME] AM CMP [COMPREHENSIVE METABOLIC PN,CMP] [CHEM] AM MAGNESIUM [CHEM] AM - Plan Plan:: Assessment * Small bowel obstruction: s/p right hemicolectomy - doing well * History of hiatal hernia * Hypokalemia: Potassium 3.4. * Hypomagnesemia : 1.5 * dehydration with acute renal injury resolved with normalization of creatinine of 0.8. Plan * MedSurg with telemetry * Ice chips * Replete potassium and magnesium * Decrease IV fluids to normal saline at 100 mL an hour * Advance diet if tolerating chips tomorrow per surgery. * Monitor CBC, CMP, and magnesium daily * Surgical consult is greatly appreciated * CODE STATUS: Full code * VTE prophylaxis with Lovenox
[2019-04-19] MEDS: Acetaminophen 325 MG Tab PO SCH (20:56)
[2019-04-19] MEDS: Enoxaparin 40 MG/0.4 ML Syringe SUBCUT SCH (20:58)
[2019-04-20] MEDS: Acetaminophen 325 MG Tab PO SCH ×4 (03:15→20:51)
[2019-04-20] MEDS: HYDROmorphone 0.5 MG/0.5 ML Syringe IVPUSH PRN ×2 (03:15→20:53)
[2019-04-20] MEDS: Pantoprazole 40 MG Tab.CR PO SCH (06:01)
--- NOTE | 2019-04-20 07:51 | PCM.SURGPN ---
- General Info Date of Service: 04/20/19 POD#: 1 Post-Op Diagnosis: s/p R hemicolectomy for cecal mass Functional Status: Reports: Pain Controlled Pain Score: 3 - Patient Data Vitals - Most Recent: Last Vital Signs Temp 98.2 F 04/20/19 03:09 Pulse 69 04/20/19 03:09 Resp 16 04/20/19 03:09 BP 102/71 04/20/19 03:09 Pulse Ox 92 L 04/20/19 03:09 Orthostatic Blood Pressure [ 122/91 Standing] Orthostatic Blood Pressure [ 135/79 Supine] Weight - Most Recent: 67.857 kg I&O - Last 24 Hours: Intake & Output 04/19/19 04/20/19 04/20/19 22:59 06:59 14:59 Intake Total 978 850 Output Total 650 1550 Balance 328 -700 Lab Results Last 24 Hrs: Laboratory Results - last 24 hr 04/19/19 04/19/19 04/19/19 Range/Units 05:32 11:11 19:54 WBC (3.98-10.04) K/mm3 RBC (3.98-5.22) M/mm3 Hgb (11.2-15.7) gm/L Hct (34.1-44.9) % MCV (79.4-94.8) fl MCH (25.6-32.2) pg MCHC (32.2-35.5) g/dl RDW Std Deviation (36.4-46.3) fL Plt Count (182-369) K/mm3 MPV (9.4-12.3) fl Neut % (Auto) (34.0-71.1) % Lymph % (Auto) (19.3-51.7) % [place] % (Auto) (4.7-12.5) % Eos % (Auto) (0.7-5.8) Baso % (Auto) (0.1-1.2) % Neut # (Auto) (1.56-6.13) K/mm3 Lymph # (Auto) (1.18-3.74) K/mm3 [place] # (Auto) (0.24-0.36) K/mm3 Eos # (Auto) (0.04-0.36) K/mm3 Baso # (Auto) (0.01-0.08) K/mm3 Sodium (136-145) mEq/L Potassium (3.5-5.1) mEq/L Chloride (98-107) mEq/L Carbon Dioxide (21-32) mEq/L Anion Gap (5-15) BUN (7-18) mg/dL Creatinine (0.55-1.02) mg/dL Est Cr Clr Drug Dosing mL/min Estimated GFR (MDRD) (>60) mL/min BUN/Creatinine Ratio (14-18) Glucose (80-115) mg/dL POC Glucose 82 169 H (80-115) mg/dL Calcium (8.5-10.1) mg/dL Magnesium (1.8-2.4) mg/dl Total Bilirubin (0.2-1.0) mg/dL AST (15-37) U/L ALT (14-59) U/L Alkaline Phosphatase (46-116) U/L Total Protein (6.4-8.2) g/dl Albumin (3.4-5.0) g/dl Globulin gm/dL Albumin/Globulin Ratio (1-2) Blood Type A POSITIVE Gel Antibody Screen Negative 04/19/19 04/20/19 04/20/19 Range/Units 23:33 05:15 05:15 WBC 8.29 (3.98-10.04) K/mm3 RBC 3.70 L (3.98-5.22) M/mm3 Hgb 11.0 L (11.2-15.7) gm/L Hct 33.8 L (34.1-44.9) % MCV 91.4 (79.4-94.8) fl MCH 29.7 (25.6-32.2) pg MCHC 32.5 (32.2-35.5) g/dl RDW Std Deviation 45.1 (36.4-46.3) fL Plt Count 201 (182-369) K/mm3 MPV 9.6 (9.4-12.3) fl Neut % (Auto) 78.8 H (34.0-71.1) % Lymph % (Auto) 9.9 L (19.3-51.7) % [place] % (Auto) 11.1 (4.7-12.5) % Eos % (Auto) 0 L (0.7-5.8) Baso % (Auto) 0.1 (0.1-1.2) % Neut # (Auto) 6.53 H (1.56-6.13) K/mm3 Lymph # (Auto) 0.82 L (1.18-3.74) K/mm3 [place] # (Auto) 0.92 H (0.24-0.36) K/mm3 Eos # (Auto) 0.00 L (0.04-0.36) K/mm3 Baso # (Auto) 0.01 (0.01-0.08) K/mm3 Sodium 137 (136-145) mEq/L Potassium 3.9 (3.5-5.1) mEq/L Chloride 103 (98-107) mEq/L Carbon Dioxide 23 (21-32) mEq/L Anion Gap 14.9 (5-15) BUN 8 (7-18) mg/dL Creatinine 0.8 (0.55-1.02) mg/dL Est Cr Clr Drug Dosing 71.81 mL/min Estimated GFR (MDRD) > 60 (>60) mL/min BUN/Creatinine Ratio 10.0 L (14-18) Glucose 125 H (80-115) mg/dL POC Glucose 138 H (80-115) mg/dL Calcium 8.3 L (8.5-10.1) mg/dL Magnesium 1.7 L (1.8-2.4) mg/dl Total Bilirubin 1.3 H (0.2-1.0) mg/dL AST 17 (15-37) U/L ALT 18 (14-59) U/L Alkaline Phosphatase 71 (46-116) U/L Total Protein 5.4 L (6.4-8.2) g/dl Albumin 2.7 L (3.4-5.0) g/dl Globulin 2.7 gm/dL Albumin/Globulin Ratio 1.0 (1-2) Blood Type Gel Antibody Screen 04/20/19 Range/Units 06:03 WBC (3.98-10.04) K/mm3 RBC (3.98-5.22) M/mm3 Hgb (11.2-15.7) gm/L Hct (34.1-44.9) % MCV (79.4-94.8) fl MCH (25.6-32.2) pg MCHC (32.2-35.5) g/dl RDW Std Deviation (36.4-46.3) fL Plt Count (182-369) K/mm3 MPV (9.4-12.3) fl Neut % (Auto) (34.0-71.1) % Lymph % (Auto) (19.3-51.7) % [place] % (Auto) (4.7-12.5) % Eos % (Auto) (0.7-5.8) Baso % (Auto) (0.1-1.2) % Neut # (Auto) (1.56-6.13) K/mm3 Lymph # (Auto) (1.18-3.74) K/mm3 [place] # (Auto) (0.24-0.36) K/mm3 Eos # (Auto) (0.04-0.36) K/mm3 Baso # (Auto) (0.01-0.08) K/mm3 Sodium (136-145) mEq/L Potassium (3.5-5.1) mEq/L Chloride (98-107) mEq/L Carbon Dioxide (21-32) mEq/L Anion Gap (5-15) BUN (7-18) mg/dL Creatinine (0.55-1.02) mg/dL Est Cr Clr Drug Dosing mL/min Estimated GFR (MDRD) (>60) mL/min BUN/Creatinine Ratio (14-18) Glucose (80-115) mg/dL POC Glucose 139 H (80-115) mg/dL Calcium (8.5-10.1) mg/dL Magnesium (1.8-2.4) mg/dl Total Bilirubin (0.2-1.0) mg/dL AST (15-37) U/L ALT (14-59) U/L Alkaline Phosphatase (46-116) U/L Total Protein (6.4-8.2) g/dl Albumin (3.4-5.0) g/dl Globulin gm/dL Albumin/Globulin Ratio (1-2) Blood Type Gel Antibody Screen Med Orders - Current: Current Medications Acetaminophen (Tylenol) 650 mg PO Q6H [facility] Last Admin: 04/20/19 03:15 Dose: 650 mg Enoxaparin Sodium (Lovenox) 40 mg SUBCUT Q24H [facility] Last Admin: 04/19/19 20:58 Dose: 40 mg Hydromorphone HCl (Dilaudid) 0.5 mg IVPUSH Q2H PRN PRN Reason: Pain Last Admin: 04/20/19 03:15 Dose: 0.5 mg Lactated Ringer's (Ringers, Lactated) 1,000 mls @ 75 mls/hr IV ASDIRECTED [facility] Last Admin: 04/19/19 21:00 Dose: 75 mls/hr Lidocaine/Sodium Bicarbonate (Buffered Lidocaine 1% In Ns 8.4%) 0.25 ml IDERM ONETIME PRN PRN Reason: Prior to IV Start Miscellaneous Information (Remove Patch) 0 ea TRDERM ONETIME ONE Stop: 04/22/19 08:01 Ondansetron HCl (Zofran) 4 mg IVPUSH Q6H PRN PRN Reason: Nausea Last Admin: 04/17/19 10:35 Dose: 4 mg Pantoprazole Sodium (Protonix) 40 mg PO DAILY@0700 [facility] Last Admin: 04/20/19 06:01 Dose: 40 mg Propranolol HCl (Inderal La) 80 mg PO DAILY [facility] Last Admin: 04/19/19 08:25 Dose: 80 mg Sodium Chloride (Saline Flush) 10 ml FLUSH ASDIRECTED PRN PRN Reason: Keep Vein Open Discontinued Medications Dexamethasone (Dexamethasone) Confirm Administered Dose 20 mg .ROUTE .STK-MED ONE Stop: 04/19/19 10:40 Diphenhydramine HCl (Benadryl) 25 mg IVPUSH Q6H PRN PRN Reason: Pruritis Stop: 04/19/19 16:00 Enoxaparin Sodium (Lovenox) 30 mg SUBCUT Q24H [facility] Last Admin: 04/17/19 22:25 Dose: 30 mg Ephedrine Sulfate (Ephedrine In Ns) Confirm Administered Dose 25 mg .ROUTE .STK- MED ONE Stop: 04/19/19 11:44 Ephedrine Sulfate (Ephedrine In Ns) Confirm Administered Dose 25 mg .ROUTE .STK- MED ONE Stop: 04/19/19 12:23 Fentanyl (Sublimaze) Confirm Administered Dose 250 mcg .ROUTE .STK-MED ONE Stop: 04/19/19 10:40 Fentanyl (Sublimaze) 50 mcg IVPUSH Q5M PRN PRN Reason: Pain Stop: 04/19/19 16:00 Last Admin: 04/19/19 15:09 Dose: 50 mcg Glycopyrrolate () Confirm Administered Dose 1 mg .ROUTE .STK-MED ONE Stop: 04/19/19 13:35 Hydromorphone HCl (Dilaudid) 0.5 mg IVPUSH ONETIME ONE Stop: 04/16/19 22:29 Last Admin: 04/16/19 22:38 Dose: 0.5 mg Hydromorphone HCl (Dilaudid) 0.5 mg IVPUSH Q15M PRN PRN Reason: severe pain Stop: 04/19/19 16:00 Last Admin: 04/19/19 15:20 Dose: 0.5 mg Sodium Chloride (Normal Saline) 1,000 mls @ 999 mls/hr IV ONETIME ONE Stop: 04/16/19 23:28 Last Admin: 04/16/19 22:38 Dose: 999 mls/hr Sodium Chloride (Normal Saline) 1,000 mls @ 150 mls/hr IV ASDIRECTED [facility] Last Admin: 04/18/19 07:31 Dose: 150 mls/hr Sodium Chloride (Normal Saline) 1,000 mls @ 999 mls/hr IV ASDIRECTED [facility] Stop: 04/17/19 12:31 Last Admin: 04/17/19 10:45 Dose: 999 mls/hr Potassium Chloride 10 meq/ (Premix) 100 mls @ 100 mls/hr IV Q1H [facility] Stop: 04/18/19 11:29 Last Admin: 04/18/19 11:07 Dose: 100 mls/hr Sodium Chloride (Normal Saline) 1,000 mls @ 100 mls/hr IV ASDIRECTED [facility] Stop: 04/19/19 11:00 Last Admin: 04/19/19 01:20 Dose: 100 mls/hr Lactated Ringer's (Ringers, Lactated) 1,000 mls @ 125 mls/hr IV ASDIRECTED [facility] Lactated Ringer's (Ringers, Lactated) 1,000 mls @ 125 mls/hr IV ASDIRECTED [facility] Potassium Chloride/Dextrose/Sod Cl (D5 Ns With 20 Meq Kcl) 1,000 mls @ 100 mls/ hr IV ASDIRECTED [facility] Last Admin: 04/19/19 17:33 Dose: 100 mls/hr Magnesium Sulfate 2 gm/ Premix 50 mls @ 25 mls/hr IV ONETIME ONE Stop: 04/19/19 10:03 Last Admin: 04/19/19 08:17 Dose: 25 mls/hr Potassium Chloride 10 meq/ (Premix) 100 mls @ 100 mls/hr IV Q1H [facility] Stop: 04/19/19 12:14 Last Admin: 04/19/19 16:29 Dose: 100 mls/hr Lidocaine HCl (Xylocaine-Mpf 1%) Confirm Administered Dose 4 mls @ as directed .ROUTE .STK-MED ONE Stop: 04/19/19 10:39 Lactated Ringer's (Ringers, Lactated) Confirm Administered Dose 1,000 mls @ as directed .ROUTE .STK-MED ONE Stop: 04/19/19 10:39 Ertapenem 1 gm/ Sodium (Chloride) 50 mls @ 100 mls/hr IV ONETIME ONE Stop: 04/19/19 11:59 Last Admin: 04/19/19 17:23 Dose: Not Given Iopamidol (Isovue-370 (76%)) 100 ml IVPUSH ONETIME ONE Stop: 04/17/19 11:17 Last Admin: 04/17/19 12:09 Dose: 100 ml Ketamine HCl (Ketalar) Confirm Administered Dose 500 mg .ROUTE .STK-MED ONE Stop: 04/19/19 11:55 Ketorolac Tromethamine (Toradol) Confirm Administered Dose 30 mg .ROUTE .STK- MED ONE Stop: 04/19/19 13:47 Lidocaine HCl (Xylocaine 1%) Confirm Administered Dose 50 ml .ROUTE .STK-MED ONE Stop: 04/19/19 11:09 Last Admin: 04/19/19 11:53 Dose: 25 ml Metoclopramide HCl (Reglan) 10 mg IVPUSH ONETIME STA Stop: 04/16/19 22:29 Last Admin: 04/16/19 22:39 Dose: 10 mg Midazolam HCl (Versed 1 Mg/Ml) Confirm Administered Dose 2 mg .ROUTE .STK-MED ONE Stop: 04/19/19 10:39 Neostigmine Methylsulfate (Neostigmine) Confirm Administered Dose 5 mg .ROUTE .STK-MED ONE Stop: 04/19/19 13:35 Ondansetron HCl (Zofran) 4 mg IVPUSH ONETIME ONE Stop: 04/16/19 22:29 Last Admin: 04/16/19 22:39 Dose: 4 mg Ondansetron HCl (Zofran) Confirm Administered Dose 4 mg .ROUTE .STK-MED ONE Stop: 04/19/19 10:39 Ondansetron HCl (Zofran) 4 mg IVPUSH ONETIME PRN PRN Reason: Nausea/Vomiting Stop: 04/19/19 16:00 Phenylephrine HCl (Phenylephrine In Ns 100 Mcg/Ml) Confirm Administered Dose 1 mg .ROUTE .STK-MED ONE Stop: 04/19/19 11:34 Propofol (Diprivan 20 Ml) Confirm Administered Dose 400 mg .ROUTE .STK-MED ONE Stop: 04/19/19 10:39 Rocuronium [place] (Zemuron) Confirm Administered Dose 50 mg .ROUTE .STK-MED ONE Stop: 04/19/19 10:40 Scopolamine (Transderm-Scop) 1.5 mg TRDERM ONETIME ONE Stop: 04/19/19 08:06 Last Admin: 04/19/19 08:24 Dose: 1.5 mg Sodium Chloride (Saline Flush) 10 ml FLUSH ONETIME PRN PRN Reason: Keep Vein Open Last Admin: 04/17/19 12:14 Dose: 10 ml Succinylcholine Chloride (Succinylcholine In Ns Pf) Confirm Administered Dose 100 mg .ROUTE .STK-MED ONE Stop: 04/19/19 10:39 - Exam Wound/Incisions: Healing Well, Dressing Dry and Intact, No Drainage, Other ( slight bruising) General: Alert, Oriented, Cooperative GI/Abdominal Exam: Soft, Non-Tender, No Distention, Other - Problem List & Annotations (1) Nausea & vomiting SNOMED Code(s): 56096297 Code(s): R11.2 - NAUSEA WITH VOMITING, UNSPECIFIED Status: Acute Priority : Medium Current Visit: Yes Onset Date: 04/17/19 Qualifiers: Vomiting type: unspecified Vomiting Intractability: non-intractable Qualified Code(s): R11.2 - Nausea with vomiting, unspecified (2) Hiatal hernia SNOMED Code(s): 04927373 Code(s): K44.9 - DIAPHRAGMATIC HERNIA WITHOUT OBSTRUCTION OR GANGRENE Status: Acute Priority: Medium Current Visit: Yes Onset Date: 04/17/19 (3) S/P right hemicolectomy SNOMED Code(s): 116404645, 749595214, 260581697 Code(s): Z90.49 - ACQUIRED ABSENCE OF OTHER SPECIFIED PARTS OF DIGESTIVE TRACT Status: Acute Priority: High Current Visit: Yes - Problem List Review Problem List Initiated/Reviewed/Updated: No - My Orders Last 24 Hours: Active Orders 24 hr Category Date Time Status Ambulate [RC] ,,20 Care 04/19/19 14:37 Active Antiembolic Devices [RC] BID Care 04/19/19 18:43 Active Head of Bed Elevation [RC] DAILY Care 04/19/19 14:37 Active Intake and Output [RC] 04,16 Care 04/19/19 14:38 Active Notify Provider [RC] ASDIRECTED Care 04/19/19 12:34 Active Oxygen Therapy [RC] PRN Care 04/19/19 14:36 Active Pulse Oximetry [RC] DAILY Care 04/19/19 12:32 Active RT Incentive Spirometry [RC] Q1HWA Care 04/19/19 14:35 Active Remove Urinary Catheter [Urinary Catheter Removal] [RC] Care 04/20/19 09:00 Active Per Unit Routine Up With Assistance [RC] BID Care 04/19/19 14:35 Active Up ad Grecia [RC] BID Care 04/19/19 14:35 Active Up to Chair [RC] BID Care 04/19/19 14:37 Active Urinary Catheter Assessment [RC] 04,10,16,22 Care 04/19/19 14:35 Active VTE/DVT Education [RC] DAILY Care 04/19/19 14:41 Active Vital Signs [RC] 00,04,08,12,16,20 Care 04/19/19 12:32 Active Clear Liquid Diet [DIET] Diet 04/20/19 Breakfast Active CBC WITH AUTO DIFF [HEME] AM Lab 04/20/19 05:15 Results CBC WITH AUTO DIFF [HEME] AM Lab 04/21/19 05:11 Ordered CBC WITH AUTO DIFF [HEME] AM Lab 04/22/19 05:11 Ordered CBC WITH AUTO DIFF [HEME] AM Lab 04/23/19 05:11 Ordered CMP [COMPREHENSIVE METABOLIC PN,CMP] [CHEM] AM Lab 04/21/19 05:11 Ordered CMP [COMPREHENSIVE METABOLIC PN,CMP] [CHEM] AM Lab 04/22/19 05:11 Ordered CMP [COMPREHENSIVE METABOLIC PN,CMP] [CHEM] AM Lab 04/23/19 05:11 Ordered MAGNESIUM [CHEM] AM Lab 04/21/19 05:11 Ordered MAGNESIUM [CHEM] AM Lab 04/22/19 05:11 Ordered MAGNESIUM [CHEM] AM Lab 04/23/19 05:11 Ordered Acetaminophen [Tylenol] Med 04/19/19 21:00 Active 650 mg PO Q6H Lactated Ringers [Ringers, Lactated] 1,000 ml Med 04/19/19 20:45 Active IV ASDIRECTED Remove Patch Med 04/22/19 08:00 Once 0 ea TRDERM ONETIME ONE Abdominal Binder [OM.PC] Per Unit Routine Oth 04/19/19 14:38 Ordered DVT/VTE Prophylaxis Reflex [OM.PC] Routine Oth 04/19/19 14:35 Ordered SCD [Sequential Compression Device] [OM.PC] Routine Oth 04/19/19 18:43 Ordered Schedule Procedure [COMM] Timed Oth 04/19/19 12:00 Ordered Medication Orders Acetaminophen (Tylenol) 650 mg PO Q6H [facility] Last Admin: 04/20/19 03:15 Dose: 650 mg Admin: 04/19/19 20:56 Dose: 650 mg Enoxaparin Sodium (Lovenox) 40 mg SUBCUT Q24H [facility] Last Admin: 04/19/19 20:58 Dose: 40 mg Admin: 04/18/19 20:40 Dose: Hydromorphone HCl (Dilaudid) 0.5 mg IVPUSH Q2H PRN PRN Reason: Pain Last Admin: 04/20/19 03:15 Dose: 0.5 mg Admin: 04/19/19 21:16 Dose: 0.5 mg Admin: 04/19/19 17:34 Dose: 0.5 mg Admin: 04/19/19 10:15 Dose: 0.5 mg Admin: 04/19/19 06:30 Dose: 0.5 mg Admin: 04/19/19 01:23 Dose: 0.5 mg Admin: 04/18/19 20:46 Dose: 0.5 mg Admin: 04/18/19 16:02 Dose: 0.5 mg Admin: 04/18/19 13:22 Dose: 0.5 mg Admin: 04/18/19 08:40 Dose: 0.5 mg Admin: 04/17/19 22:32 Dose: 0.5 mg Admin: 04/17/19 02:10 Dose: 0.5 mg Lactated Ringer's (Ringers, Lactated) 1,000 mls @ 75 mls/hr IV ASDIRECTED [facility] Last Admin: 04/19/19 21:00 Dose: 75 mls/hr Lidocaine/Sodium Bicarbonate (Buffered Lidocaine 1% In Ns 8.4%) 0.25 ml IDERM ONETIME PRN PRN Reason: Prior to IV Start Miscellaneous Information (Remove Patch) 0 ea TRDERM ONETIME ONE Stop: 04/22/19 08:01 Ondansetron HCl (Zofran) 4 mg IVPUSH Q6H PRN PRN Reason: Nausea Last Admin: 04/17/19 10:35 Dose: 4 mg Pantoprazole Sodium (Protonix) 40 mg PO DAILY@0700 [facility] Last Admin: 04/20/19 06:01 Dose: 40 mg Admin: 04/19/19 06:30 Dose: 40 mg Admin: 04/18/19 08:45 Dose: 40 mg Propranolol HCl (Inderal La) 80 mg PO DAILY [facility] Last Admin: 04/19/19 08:25 Dose: 80 mg Admin: 04/18/19 08:45 Dose: 80 mg Sodium Chloride (Saline Flush) 10 ml FLUSH ASDIRECTED PRN PRN Reason: Keep Vein Open - Assessment Assessment (Free Text/Narrative):: POD1 s/p R hemicolectomy for obstructing cecal mass. Doing well. - Plan Plan (Free Text/Narrative):: - Start clear liquid diet - remove medina catheter - change fluid to D5 .45 at 50 cc/hr - Ambulate TID - Use incentive spiromenter - antinausea meds at needed - Scheduled tylenol 650 q 6hr, Oxycodone 5 mg q 6hrs pRN for pain
[2019-04-20] MEDS ORDERED: Magnesium Sulfate/Water 2 GM in Premix Bag 1 BAG IV ONE (07:58)
[2019-04-20] MEDS ORDERED: Dextrose 5%-0.45% NaCl 1,000 ML IV SCH (08:00)
[2019-04-20] MEDS: Propranolol 80 MG Cap.ER PO SCH (09:09)
[2019-04-20] MEDS: oxyCODONE 5 MG Tab PO PRN ×2 (09:10→16:29)
--- NOTE | 2019-04-20 09:42 | OR ---
DATE OF OPERATION: 04/19/2019 SURGEON: Virgie Bonilla MD CO-SURGEON: Pepe Whitlock MD SECOND TRUCK SERVICE MANAGER: Eyal Chaudhary medical or surgical instrument maker. PREOPERATIVE DIAGNOSIS: Small-bowel obstruction with a stricture of the terminal ileum or cecum. POSTOPERATIVE DIAGNOSIS: Mass at the cecum. OPERATION PERFORMED: Laparoscopic right hemicolectomy. ESTIMATED BLOOD LOSS: 50 mL. FLUIDS: 1700. URINE OUTPUT: 500. FINDINGS: There was small firm mass at the cecum with diffuse dilated small bowel and decompressed colon. NEED FOR CO-SURGEON: Dr. Pepe Whitlock assisted with the entire operation including retraction of the bowel and creation of the anastomosis. Need for second assistant corporation counsel was necessary due to complexity of this procedure requiring assisting with camera holding as well as patient positioning. INDICATION AND CONSENT: The patient is a 63-year-old female who initially developed upper abdominal pain associated with nausea, vomiting, and decreased stool and flatus about 8 weeks ago. The patient went to clinic for persistent symptoms and was sent to ma. I saw the patient about 2 weeks ago and ordered a CT scan, which showed stricture at the distal small bowel and signs of small-bowel obstruction. The patient's symptoms persisted. The patient was admitted at [facility] and underwent exploratory laparoscopy, which was negative. Therefore, the patient was discharged home. At home, the patient continued to have problems with p.o. intake, nausea, and vomiting and was not able to keep any significant amount of food down. The patient was only able to drink fluids and water. She eventually was readmitted at the [facility] over the weekend for the same symptoms. Upon our discussion, a CT scan was repeated that showed persistent stricture at the terminal ileum or cecum. Given these findings, a decision was made to proceed with resection of this strictured area in order to relieve the patient from obstruction. We discussed with the patient the alternative risks and benefits of the procedure. This was done extensively with the patient and patient's . They both agreed to proceed with the procedure, and informed consent was obtained. Among the risks discussed with the patient include bleeding; infection, both superficial and deep; wound complications, anastomotic breakdown and leakage; need for additional operations; blood clots; and pneumonia as well as reaction to other medications. DESCRIPTION OF PROCEDURE: The patient was taken to the operating room, placed on operating room table in supine position. Following induction of general endotracheal anesthesia, preoperative antibiotics consisting of Invanz were administered. Then, the patient's arms were tucked. SCDs were placed in bilateral lower extremities. De La Cruz catheter was placed. An NG tube was placed. Then, the abdomen was prepped and draped in the usual sterile fashion. Then, formal time-out was performed prior to the start of the procedure. I began the procedure by accessing the abdomen and placing a Gauri trocar using a standard cutdown method. Then, 10/30 laparoscope was introduced. The abdomen was inspected. There were no abdominal wall or liver masses that were noted. Then, 2 additional trocars were placed in the left lateral abdomen at the sites of prior diagnostic laparoscopy and one 5 mm trocal in the right lower quadrant for the assisting co-surgeon. Then, 2 bowel graspers were placed, and the patient was positioned in the reverse Trendelenburg position, left-sided down to facilitate exposure of the right colon. The ileocolic mesentery was grasped and lifted up, and this exposed the ileocolic vessel pedicle. Then, using Ligasure Impact, the ileocolic artery was dissected and skeletonized close to its origin, and this area was clipped with two 5 mm clips and ligated using LigaSure impact and transected. Then in the medial to lateral fashion, the retroperitoneum was from the colon bluntly with bowel graspers. The ileocolic vein was also encountered, and this was still similarly ligated with LigaSure Impact. Dissection in the medial to lateral fashion proceeded superiorly just beyond the hepatic flexure and inferiorly all the way to the terminal ileum. Then, lateral attachment of the colon was also taken down with LigaSure Impact and the hepatic flexure was also taken down. Once the colon was completely released from its attachment in the retroperitoneum as well as the lateral wall, we inspected the lateral side of right side of the abdomen. We were reassured by seeing the ureter that was still in the retroperitoneum and making sure that there is no injury to the vital structures. When this was completed, a 5 cm periumbilical incision was made. Dagoberto wound protector was placed, and then the terminal ileum as well as the right colon were externalized. Two 55 mm blue staple loads were used to transect the right colon as well as the terminal ileum, taking about 15 cm of the terminal ileum as well as the right colon. The right hemicolectomy specimen was passed off for pathology. Using 100 mm staple load, a [id number] ileocolonic anastomosis was created by stapling these 2 ends together. Care was taken to make sure that both the colon and distal ileum were oriented correctly, and there was no mesenteric twisting. The common channel was closed with a 60 blue load TA staple after making sure that the anastomosis was not bleeding. Then, the common enterotomy staple end was imbricated with 3-0 silk stitches. The anastomosis was reinspected and found to be widely patent. This was placed back into the abdomen. The abdomen was then re-insufflated. A 5 mm laparoscope was inserted, and the abdomen was inspected, irrigated, and suctioned out. There were no signs of other injury, and the anastomosis looked to be lying down flat without any tension. At this point, the wound retractor was removed, camera was removed, and the rest of the trocars were removed. We proceeded with closure of the midline incision. This was closed at the facial level with 0 looped PDS stitches in a running fashion. Then, the skin at this site as well as the other 5 mm trocar sites were closed with 4-0 Monocryl stitches. Once this was done, the case came to an end. Counts were performed x2 and were deemed to be correct. The patient was awoken from anesthesia and taken to the PACU in stable condition. The patient will be admitted to the hospital with a De La Cruz in place for resuscitation overnight and for recovery. ANESTHESIA: JO ANN /[id number]
--- NOTE | 2019-04-20 14:26 | PCM.PN ---
- General Info Date of Service: 04/20/19 Admission Dx/Problem (Free Text): Epigastric pain, nausea and vomiting Subjective Update: Maritza states that she is doing better. Her pain previous to surgery has resolved. She does have surgical site pain, but it is under control. She has started to pass air rectally and generally is feeling better. Functional Status: Reports: Pain Controlled - Review of Systems General: Reports: No Symptoms HEENT: Reports: No Symptoms Pulmonary: Reports: No Symptoms Cardiovascular: Reports: No Symptoms Gastrointestinal: Reports: Abdominal Pain. Denies: Nausea, Vomiting Neurological: Reports: No Symptoms - Patient Data Vitals - Most Recent: Last Vital Signs Temp 98.9 F 04/20/19 12:16 Pulse 70 04/20/19 12:16 Resp 14 04/20/19 12:16 BP 100/81 04/20/19 12:16 Pulse Ox 94 L 04/20/19 12:16 Orthostatic Blood Pressure [ 122/91 Standing] Orthostatic Blood Pressure [ 135/79 Supine] Weight - Most Recent: 149 lb 9.6 oz I&O - Last 24 Hours: Intake & Output 04/19/19 04/20/19 04/20/19 22:59 06:59 14:59 Intake Total 978 850 180 Output Total 650 1550 200 Balance 328 -700 -20 Lab Results Last 24 Hours: Laboratory Results - last 24 hr 04/16/19 04/19/19 04/19/19 Range/Units 22:42 19:54 23:33 WBC (3.98-10.04) K/mm3 RBC (3.98-5.22) M/mm3 Hgb (11.2-15.7) gm/L Hct (34.1-44.9) % MCV (79.4-94.8) fl MCH (25.6-32.2) pg MCHC (32.2-35.5) g/dl RDW Std Deviation (36.4-46.3) fL Plt Count (182-369) K/mm3 MPV (9.4-12.3) fl Neut % (Auto) (34.0-71.1) % Lymph % (Auto) (19.3-51.7) % [place] % (Auto) (4.7-12.5) % Eos % (Auto) (0.7-5.8) Baso % (Auto) (0.1-1.2) % Neut # (Auto) (1.56-6.13) K/mm3 Lymph # (Auto) (1.18-3.74) K/mm3 [place] # (Auto) (0.24-0.36) K/mm3 Eos # (Auto) (0.04-0.36) K/mm3 Baso # (Auto) (0.01-0.08) K/mm3 Manual Slide Review Sodium (136-145) mEq/L Potassium (3.5-5.1) mEq/L Chloride (98-107) mEq/L Carbon Dioxide (21-32) mEq/L Anion Gap (5-15) BUN (7-18) mg/dL Creatinine (0.55-1.02) mg/dL Est Cr Clr Drug Dosing mL/min Estimated GFR (MDRD) (>60) mL/min BUN/Creatinine Ratio (14-18) Glucose (80-115) mg/dL POC Glucose 169 H 138 H (80-115) mg/dL Calcium (8.5-10.1) mg/dL Magnesium (1.8-2.4) mg/dl Total Bilirubin (0.2-1.0) mg/dL AST (15-37) U/L ALT (14-59) U/L Alkaline Phosphatase (46-116) U/L Total Protein (6.4-8.2) g/dl Albumin (3.4-5.0) g/dl Globulin gm/dL Albumin/Globulin Ratio (1-2) CA 19-9 Antigen 77 H (0-35) U/mL 04/20/19 04/20/19 04/20/19 Range/Units 05:15 05:15 06:03 WBC 8.29 (3.98-10.04) K/mm3 RBC 3.70 L (3.98-5.22) M/mm3 Hgb 11.0 L (11.2-15.7) gm/L Hct 33.8 L (34.1-44.9) % MCV 91.4 (79.4-94.8) fl MCH 29.7 (25.6-32.2) pg MCHC 32.5 (32.2-35.5) g/dl RDW Std Deviation 45.1 (36.4-46.3) fL Plt Count 201 (182-369) K/mm3 MPV 9.6 (9.4-12.3) fl Neut % (Auto) 78.8 H (34.0-71.1) % Lymph % (Auto) 9.9 L (19.3-51.7) % [place] % (Auto) 11.1 (4.7-12.5) % Eos % (Auto) 0 L (0.7-5.8) Baso % (Auto) 0.1 (0.1-1.2) % Neut # (Auto) 6.53 H (1.56-6.13) K/mm3 Lymph # (Auto) 0.82 L (1.18-3.74) K/mm3 [place] # (Auto) 0.92 H (0.24-0.36) K/mm3 Eos # (Auto) 0.00 L (0.04-0.36) K/mm3 Baso # (Auto) 0.01 (0.01-0.08) K/mm3 Manual Slide Review Abnormal smear Sodium 137 (136-145) mEq/L Potassium 3.9 (3.5-5.1) mEq/L Chloride 103 (98-107) mEq/L Carbon Dioxide 23 (21-32) mEq/L Anion Gap 14.9 (5-15) BUN 8 (7-18) mg/dL Creatinine 0.8 (0.55-1.02) mg/dL Est Cr Clr Drug Dosing 71.81 mL/min Estimated GFR (MDRD) > 60 (>60) mL/min BUN/Creatinine Ratio 10.0 L (14-18) Glucose 125 H (80-115) mg/dL POC Glucose 139 H (80-115) mg/dL Calcium 8.3 L (8.5-10.1) mg/dL Magnesium 1.7 L (1.8-2.4) mg/dl Total Bilirubin 1.3 H (0.2-1.0) mg/dL AST 17 (15-37) U/L ALT 18 (14-59) U/L Alkaline Phosphatase 71 (46-116) U/L Total Protein 5.4 L (6.4-8.2) g/dl Albumin 2.7 L (3.4-5.0) g/dl Globulin 2.7 gm/dL Albumin/Globulin Ratio 1.0 (1-2) CA 19-9 Antigen (0-35) U/mL Med Orders - Current: Current Medications Acetaminophen (Tylenol) 650 mg PO Q6H [facility] Last Admin: 04/20/19 14:15 Dose: 650 mg Enoxaparin Sodium (Lovenox) 40 mg SUBCUT Q24H [facility] Last Admin: 04/19/19 20:58 Dose: 40 mg Hydromorphone HCl (Dilaudid) 0.5 mg IVPUSH Q2H PRN PRN Reason: Pain Last Admin: 04/20/19 03:15 Dose: 0.5 mg Lidocaine/Sodium Bicarbonate (Buffered Lidocaine 1% In Ns 8.4%) 0.25 ml IDERM ONETIME PRN PRN Reason: Prior to IV Start Miscellaneous Information (Remove Patch) 0 ea TRDERM ONETIME ONE Stop: 04/22/19 08:01 Ondansetron HCl (Zofran) 4 mg IVPUSH Q6H PRN PRN Reason: Nausea Last Admin: 04/17/19 10:35 Dose: 4 mg Oxycodone HCl (Oxycodone) 5 - 10 mg PO Q6H PRN PRN Reason: Abdominal Pain Last Admin: 04/20/19 09:10 Dose: 5 mg Pantoprazole Sodium (Protonix) 40 mg PO DAILY@0700 [facility] Last Admin: 04/20/19 06:01 Dose: 40 mg Propranolol HCl (Inderal La) 80 mg PO DAILY [facility] Last Admin: 04/20/19 09:09 Dose: 80 mg Sodium Chloride (Saline Flush) 10 ml FLUSH ASDIRECTED PRN PRN Reason: Keep Vein Open Discontinued Medications Dexamethasone (Dexamethasone) Confirm Administered Dose 20 mg .ROUTE .STK-MED ONE Stop: 04/19/19 10:40 Diphenhydramine HCl (Benadryl) 25 mg IVPUSH Q6H PRN PRN Reason: Pruritis Stop: 04/19/19 16:00 Enoxaparin Sodium (Lovenox) 30 mg SUBCUT Q24H [facility] Last Admin: 04/17/19 22:25 Dose: 30 mg Ephedrine Sulfate (Ephedrine In Ns) Confirm Administered Dose 25 mg .ROUTE .STK- MED ONE Stop: 04/19/19 11:44 Ephedrine Sulfate (Ephedrine In Ns) Confirm Administered Dose 25 mg .ROUTE .STK- MED ONE Stop: 04/19/19 12:23 Fentanyl (Sublimaze) Confirm Administered Dose 250 mcg .ROUTE .STK-MED ONE Stop: 04/19/19 10:40 Fentanyl (Sublimaze) 50 mcg IVPUSH Q5M PRN PRN Reason: Pain Stop: 04/19/19 16:00 Last Admin: 04/19/19 15:09 Dose: 50 mcg Glycopyrrolate () Confirm Administered Dose 1 mg .ROUTE .STK-MED ONE Stop: 04/19/19 13:35 Hydromorphone HCl (Dilaudid) 0.5 mg IVPUSH ONETIME ONE Stop: 04/16/19 22:29 Last Admin: 04/16/19 22:38 Dose: 0.5 mg Hydromorphone HCl (Dilaudid) 0.5 mg IVPUSH Q15M PRN PRN Reason: severe pain Stop: 04/19/19 16:00 Last Admin: 04/19/19 15:20 Dose: 0.5 mg Sodium Chloride (Normal Saline) 1,000 mls @ 999 mls/hr IV ONETIME ONE Stop: 04/16/19 23:28 Last Admin: 04/16/19 22:38 Dose: 999 mls/hr Sodium Chloride (Normal Saline) 1,000 mls [facility] Admin: 04/18/19 07:31 Dose: 150 mls/hr Sodium Chloride (Normal Saline) 1,000 mls @ 999 mls/hr IV ASDIRECTED [facility] Stop: 04/17/19 12:31 Last Admin: 04/17/19 10:45 Dose: 999 mls/hr Potassium Chloride 10 meq/ (Premix) 100 mls @ 100 mls/hr IV Q1H [facility] Stop: 04/18/19 11:29 Last Admin: 04/18/19 11:07 Dose: 100 mls/hr Sodium Chloride (Normal Saline) 1,000 mls @ 100 mls/hr IV ASDIRECTED [facility] Stop: 04/19/19 11:00 Last Admin: 04/19/19 01:20 Dose: 100 mls/hr Lactated Ringer's (Ringers, Lactated) 1,000 mls @ 125 mls/hr IV ASDIRECTED [facility] Lactated Ringer's (Ringers, Lactated) 1,000 mls @ 125 mls/hr IV ASDIRECTED [facility] Potassium Chloride/Dextrose/Sod Cl (D5 Ns With 20 Meq Kcl) 1,000 mls @ 100 mls/ hr IV ASDIRECTED [facility] Last Admin: 04/19/19 17:33 Dose: 100 mls/hr Magnesium Sulfate 2 gm/ Premix 50 mls @ 25 mls/hr IV ONETIME ONE Stop: 04/19/19 10:03 Last Admin: 04/19/19 08:17 Dose: 25 mls/hr Potassium Chloride 10 meq/ (Premix) 100 mls @ 100 mls/hr IV Q1H [facility] Stop: 04/19/19 12:14 Last Admin: 04/19/19 16:29 Dose: 100 mls/hr Lidocaine HCl (Xylocaine-Mpf 1%) Confirm Administered Dose 4 mls @ as directed .ROUTE .STK-MED ONE Stop: 04/19/19 10:39 Lactated Ringer's (Ringers, Lactated) Confirm Administered Dose 1,000 mls @ as directed .ROUTE .STK-MED ONE Stop: 04/19/19 10:39 Ertapenem 1 gm/ Sodium (Chloride) 50 mls @ 100 mls/hr IV ONETIME ONE Stop: 04/19/19 11:59 Last Admin: 04/19/19 17:23 Dose: Not Given Lactated Ringer's (Ringers, Lactated) 1,000 mls @ 75 mls/hr IV ASDIRECTED [facility] Last Admin: 04/19/19 21:00 Dose: 75 mls/hr Dextrose/Sodium Chloride (Dextrose 5%-1/2 Ns) 1,000 mls @ 50 mls/hr IV ASDIRECTED [facility] Last Admin: 04/20/19 09:06 Dose: 50 mls/hr Magnesium Sulfate/Dextrose 1 (gm/ Premix) 100 mls @ 100 mls/hr IV ONETIME ONE Stop: 04/20/19 09:45 Last Admin: 04/20/19 09:07 Dose: 100 mls/hr Iopamidol (Isovue-370 (76%)) 100 ml IVPUSH ONETIME ONE Stop: 04/17/19 11:17 Last Admin: 04/17/19 12:09 Dose: 100 ml Ketamine HCl (Ketalar) Confirm Administered Dose 500 mg .ROUTE .STK-MED ONE Stop: 04/19/19 11:55 Ketorolac Tromethamine (Toradol) Confirm Administered Dose 30 mg .ROUTE .STK- MED ONE Stop: 04/19/19 13:47 Lidocaine HCl (Xylocaine 1%) Confirm Administered Dose 50 ml .ROUTE .STK-MED ONE Stop: 04/19/19 11:09 Last Admin: 04/19/19 11:53 Dose: 25 ml Metoclopramide HCl (Reglan) 10 mg IVPUSH ONETIME STA Stop: 04/16/19 22:29 Last Admin: 04/16/19 22:39 Dose: 10 mg Midazolam HCl (Versed 1 Mg/Ml) Confirm Administered Dose 2 mg .ROUTE .STK-MED ONE Stop: 04/19/19 10:39 Neostigmine Methylsulfate (Neostigmine) Confirm Administered Dose 5 mg .ROUTE .STK-MED ONE Stop: 04/19/19 13:35 Ondansetron HCl (Zofran) 4 mg IVPUSH ONETIME ONE Stop: 04/16/19 22:29 Last Admin: 04/16/19 22:39 Dose: 4 mg Ondansetron HCl (Zofran) Confirm Administered Dose 4 mg .ROUTE .STK-MED ONE Stop: 04/19/19 10:39 Ondansetron HCl (Zofran) 4 mg IVPUSH ONETIME PRN PRN Reason: Nausea/Vomiting Stop: 04/19/19 16:00 Phenylephrine HCl (Phenylephrine In Ns 100 Mcg/Ml) Confirm Administered Dose 1 mg .ROUTE .STK-MED ONE Stop: 04/19/19 11:34 Propofol (Diprivan 20 Ml) Confirm Administered Dose 400 mg .ROUTE .STK-MED ONE Stop: 04/19/19 10:39 Rocuronium [place] (Zemuron) Confirm Administered Dose 50 mg .ROUTE .STK-MED ONE Stop: 04/19/19 10:40 Scopolamine (Transderm-Scop) 1.5 mg TRDERM ONETIME ONE Stop: 04/19/19 08:06 Last Admin: 04/19/19 08:24 Dose: 1.5 mg Sodium Chloride (Saline Flush) 10 ml FLUSH ONETIME PRN PRN Reason: Keep Vein Open Last Admin: 04/17/19 12:14 Dose: 10 ml Succinylcholine Chloride (Succinylcholine In Ns Pf) Confirm Administered Dose 100 mg .ROUTE .STK-MED ONE Stop: 04/19/19 10:39 - Exam Quality Assessment: No: Supplemental Oxygen General: Alert, Oriented HEENT: Pupils Equal, Mucous Membr. Moist/[place] Lungs: Clear to Auscultation, Normal Respiratory Effort Cardiovascular: Regular Rate, Regular Rhythm GI/Abdominal Exam: Soft, Tender. No: Normal Bowel Sounds (decreased bowel sounds), Distended, Guarding, Rigid, Rebound Extremities: Normal Inspection, No Pedal Edema Skin: Warm, Dry, Intact Psy/Mental Status: Alert, Normal Affect, Normal Mood - Problem List Review Problem List Initiated/Reviewed/Updated: Yes - My Orders Last 24 Hours: My Active Orders 04/19/19 18:43 Antiembolic Devices [RC] BID SCD [Sequential Compression Device] [OM.PC] Routine 04/21/19 05:11 CBC WITH AUTO DIFF [HEME] AM CMP [COMPREHENSIVE METABOLIC PN,CMP] [CHEM] AM MAGNESIUM [CHEM] AM 04/22/19 05:11 CBC WITH AUTO DIFF [HEME] AM CMP [COMPREHENSIVE METABOLIC PN,CMP] [CHEM] AM MAGNESIUM [CHEM] AM 04/23/19 05:11 CBC WITH AUTO DIFF [HEME] AM CMP [COMPREHENSIVE METABOLIC PN,CMP] [CHEM] AM MAGNESIUM [CHEM] AM - Assessment Assessment:: small bowel abnormality of unknown cause causing distal symptoms but ? obstructive gerd hiatal hernia dehydration elavated t.b without def gb abnormalities on testing so far. upper endoscopy and hida scan / eval small bowel if needed . boh - Plan Plan:: Assessment * Small bowel obstruction: s/p right hemicolectomy - doing well * History of hiatal hernia * Hypomagnesemia : 1.7 * dehydration with acute renal injury resolved with normalization of creatinine of 0.8. Plan * MedSurg with telemetry * Replete potassium and magnesium * DC IV fluids * Advance diet per surgery. * Monitor CBC, CMP, and magnesium daily * Surgical consult is greatly appreciated * CODE STATUS: Full code * VTE prophylaxis with Lovenox
[2019-04-20] MEDS: Enoxaparin 40 MG/0.4 ML Syringe SUBCUT SCH (20:52)
[2019-04-21] MEDS: oxyCODONE 5 MG Tab PO PRN ×2 (01:07→16:51)
[2019-04-21] MEDS: Acetaminophen 325 MG Tab PO SCH ×4 (03:33→21:31)
[2019-04-21] MEDS: Pantoprazole 40 MG Tab.CR PO SCH (06:23)
--- NOTE | 2019-04-21 07:57 | PCM.SURGPN ---
- General Info Date of Service: 04/21/19 Date of Surgery/Procedure: 04/19/19 POD#: 2 Functional Status: Reports: Pain Controlled, Tolerating Diet (clears), Ambulating (BID), Urinating (without medina) - Patient Data Vitals - Most Recent: Last Vital Signs Temp 98.8 F 04/21/19 03:27 Pulse 60 04/21/19 03:27 Resp 16 04/21/19 03:27 BP 118/78 04/21/19 03:27 Pulse Ox 92 L 04/21/19 03:27 Orthostatic Blood Pressure [ 122/91 Standing] Orthostatic Blood Pressure [ 135/79 Supine] Weight - Most Recent: 68.402 kg I&O - Last 24 Hours: Intake & Output 04/20/19 04/21/19 04/21/19 22:59 06:59 14:59 Intake Total 2110 250 Output Total 400 600 Balance 1710 -350 Lab Results Last 24 Hrs: Laboratory Results - last 24 hr 04/16/19 04/20/19 04/21/19 Range/Units 22:42 05:15 05:00 WBC 7.00 (3.98-10.04) K/mm3 RBC 3.69 L (3.98-5.22) M/mm3 Hgb 11.0 L (11.2-15.7) gm/L Hct 33.9 L (34.1-44.9) % MCV 91.9 (79.4-94.8) fl MCH 29.8 (25.6-32.2) pg MCHC 32.4 (32.2-35.5) g/dl RDW Std Deviation 46.8 H (36.4-46.3) fL Plt Count 209 (182-369) K/mm3 MPV 10.2 (9.4-12.3) fl Neut % (Auto) 73.5 H (34.0-71.1) % Lymph % (Auto) 11.7 L (19.3-51.7) % [place] % (Auto) 12.6 H (4.7-12.5) % Eos % (Auto) 1.9 (0.7-5.8) Baso % (Auto) 0.3 (0.1-1.2) % Neut # (Auto) 5.15 (1.56-6.13) K/mm3 Lymph # (Auto) 0.82 L (1.18-3.74) K/mm3 [place] # (Auto) 0.88 H (0.24-0.36) K/mm3 Eos # (Auto) 0.13 (0.04-0.36) K/mm3 Baso # (Auto) 0.02 (0.01-0.08) K/mm3 Manual Slide Review Abnormal smear Sodium (136-145) mEq/L Potassium (3.5-5.1) mEq/L Chloride (98-107) mEq/L Carbon Dioxide (21-32) mEq/L Anion Gap (5-15) BUN (7-18) mg/dL Creatinine (0.55-1.02) mg/dL Est Cr Clr Drug Dosing mL/min Estimated GFR (MDRD) (>60) mL/min BUN/Creatinine Ratio (14-18) Glucose (80-115) mg/dL Calcium (8.5-10.1) mg/dL Magnesium (1.8-2.4) mg/dl Total Bilirubin (0.2-1.0) mg/dL AST (15-37) U/L ALT (14-59) U/L Alkaline Phosphatase (46-116) U/L Total Protein (6.4-8.2) g/dl Albumin (3.4-5.0) g/dl Globulin gm/dL Albumin/Globulin Ratio (1-2) CA 19-9 Antigen 77 H (0-35) U/mL 04/21/19 Range/Units 05:00 WBC (3.98-10.04) K/mm3 RBC (3.98-5.22) M/mm3 Hgb (11.2-15.7) gm/L Hct (34.1-44.9) % MCV (79.4-94.8) fl MCH (25.6-32.2) pg MCHC (32.2-35.5) g/dl RDW Std Deviation (36.4-46.3) fL Plt Count (182-369) K/mm3 MPV (9.4-12.3) fl Neut % (Auto) (34.0-71.1) % Lymph % (Auto) (19.3-51.7) % [place] % (Auto) (4.7-12.5) % Eos % (Auto) (0.7-5.8) Baso % (Auto) (0.1-1.2) % Neut # (Auto) (1.56-6.13) K/mm3 Lymph # (Auto) (1.18-3.74) K/mm3 [place] # (Auto) (0.24-0.36) K/mm3 Eos # (Auto) (0.04-0.36) K/mm3 Baso # (Auto) (0.01-0.08) K/mm3 Manual Slide Review Sodium 139 (136-145) mEq/L Potassium 3.5 (3.5-5.1) mEq/L Chloride 105 (98-107) mEq/L Carbon Dioxide 24 (21-32) mEq/L Anion Gap 13.5 (5-15) BUN 11 (7-18) mg/dL Creatinine 0.8 (0.55-1.02) mg/dL Est Cr Clr Drug Dosing 71.81 mL/min Estimated GFR (MDRD) > 60 (>60) mL/min BUN/Creatinine Ratio 13.8 L (14-18) Glucose 96 (80-115) mg/dL Calcium 8.2 L (8.5-10.1) mg/dL Magnesium 1.7 L (1.8-2.4) mg/dl Total Bilirubin 1.6 H (0.2-1.0) mg/dL AST 17 (15-37) U/L ALT 17 (14-59) U/L Alkaline Phosphatase 78 (46-116) U/L Total Protein 5.5 L (6.4-8.2) g/dl Albumin 2.6 L (3.4-5.0) g/dl Globulin 2.9 gm/dL Albumin/Globulin Ratio 0.9 L (1-2) CA 19-9 Antigen (0-35) U/mL Med Orders - Current: Current Medications Acetaminophen (Tylenol) 650 mg PO Q6H [facility] Last Admin: 04/21/19 03:33 Dose: 650 mg Enoxaparin Sodium (Lovenox) 40 mg SUBCUT Q24H [facility] Last Admin: 04/20/19 20:52 Dose: 40 mg Hydromorphone HCl (Dilaudid) 0.5 mg IVPUSH Q2H PRN PRN Reason: Pain Last Admin: 04/20/19 20:53 Dose: 0.5 mg Lidocaine/Sodium Bicarbonate (Buffered Lidocaine 1% In Ns 8.4%) 0.25 ml IDERM ONETIME PRN PRN Reason: Prior to IV Start Miscellaneous Information (Remove Patch) 0 ea TRDERM ONETIME ONE Stop: 04/22/19 08:01 Ondansetron HCl (Zofran) 4 mg IVPUSH Q6H PRN PRN Reason: Nausea Last Admin: 04/17/19 10:35 Dose: 4 mg Oxycodone HCl (Oxycodone) 5 - 10 mg PO Q6H PRN PRN Reason: Abdominal Pain Last Admin: 04/21/19 01:07 Dose: 10 mg Pantoprazole Sodium (Protonix) 40 mg PO DAILY@0700 [facility] Last Admin: 04/21/19 06:23 Dose: 40 mg Propranolol HCl (Inderal La) 80 mg PO DAILY [facility] Last Admin: 04/20/19 09:09 Dose: 80 mg Sodium Chloride (Saline Flush) 10 ml FLUSH ASDIRECTED PRN PRN Reason: Keep Vein Open Discontinued Medications Dexamethasone (Dexamethasone) Confirm Administered Dose 20 mg .ROUTE .STK-MED ONE Stop: 04/19/19 10:40 Diphenhydramine HCl (Benadryl) 25 mg IVPUSH Q6H PRN PRN Reason: Pruritis Stop: 04/19/19 16:00 Enoxaparin Sodium (Lovenox) 30 mg SUBCUT Q24H [facility] Last Admin: 04/17/19 22:25 Dose: 30 mg Ephedrine Sulfate (Ephedrine In Ns) Confirm Administered Dose 25 mg .ROUTE .STK- MED ONE Stop: 04/19/19 11:44 Ephedrine Sulfate (Ephedrine In Ns) Confirm Administered Dose 25 mg .ROUTE .STK- MED ONE Stop: 04/19/19 12:23 Fentanyl (Sublimaze) Confirm Administered Dose 250 mcg .ROUTE .STK-MED ONE Stop: 04/19/19 10:40 Fentanyl (Sublimaze) 50 mcg IVPUSH Q5M PRN PRN Reason: Pain Stop: 04/19/19 16:00 Last Admin: 04/19/19 15:09 Dose: 50 mcg Glycopyrrolate () Confirm Administered Dose 1 mg .ROUTE .STK-MED ONE Stop: 04/19/19 13:35 Hydromorphone HCl (Dilaudid) 0.5 mg IVPUSH ONETIME ONE Stop: 04/16/19 22:29 Last Admin: 04/16/19 22:38 Dose: 0.5 mg Hydromorphone HCl (Dilaudid) 0.5 mg IVPUSH Q15M PRN PRN Reason: severe pain Stop: 04/19/19 16:00 Last Admin: 04/19/19 15:20 Dose: 0.5 mg Sodium Chloride (Normal Saline) 1,000 mls @ 999 mls/hr IV ONETIME ONE Stop: 04/16/19 23:28 Last Admin: 04/16/19 22:38 Dose: 999 mls/hr Sodium Chloride (Normal Saline) 1,000 mls @ 150 mls/hr IV ASDIRECTED [facility] Last Admin: 04/18/19 07:31 Dose: 150 mls/hr Sodium Chloride (Normal Saline) 1,000 mls @ 999 mls/hr IV ASDIRECTED [facility] Stop: 04/17/19 12:31 Last Admin: 04/17/19 10:45 Dose: 999 mls/hr Potassium Chloride 10 meq/ (Premix) 100 mls @ 100 mls/hr IV Q1H [facility] Stop: 04/18/19 11:29 Last Admin: 04/18/19 11:07 Dose: 100 mls/hr Sodium Chloride (Normal Saline) 1,000 mls @ 100 mls/hr IV ASDIRECTED [facility] Stop: 04/19/19 11:00 Last Admin: 04/19/19 01:20 Dose: 100 mls/hr Lactated Ringer's (Ringers, Lactated) 1,000 mls @ 125 mls/hr IV ASDIRECTED [facility] Lactated Ringer's (Ringers, Lactated) 1,000 mls @ 125 mls/hr IV ASDIRECTED [facility] Potassium Chloride/Dextrose/Sod Cl (D5 Ns With 20 Meq Kcl) 1,000 mls @ 100 mls/ hr IV ASDIRECTED [facility] Last Admin: 04/19/19 17:33 Dose: 100 mls/hr Magnesium Sulfate 2 gm/ Premix 50 mls @ 25 mls/hr IV ONETIME ONE Stop: 04/19/19 10:03 Last Admin: 04/19/19 08:17 Dose: 25 mls/hr Potassium Chloride 10 meq/ (Premix) 100 mls @ 100 mls/hr IV Q1H [facility] Stop: 04/19/19 12:14 Last Admin: 04/19/19 16:29 Dose: 100 mls/hr Lidocaine HCl (Xylocaine-Mpf 1%) Confirm Administered Dose 4 mls @ as directed .ROUTE .STK-MED ONE Stop: 04/19/19 10:39 Lactated Ringer's (Ringers, Lactated) Confirm Administered Dose 1,000 mls @ as directed .ROUTE .STK-MED ONE Stop: 04/19/19 10:39 Ertapenem 1 gm/ Sodium (Chloride) 50 mls @ 100 mls/hr IV ONETIME ONE Stop: 04/19/19 11:59 Last Admin: 04/19/19 17:23 Dose: Not Given Lactated Ringer's (Ringers, Lactated) 1,000 mls @ 75 mls/hr IV ASDIRECTED [facility] Last Admin: 04/19/19 21:00 Dose: 75 mls/hr Dextrose/Sodium Chloride (Dextrose 5%-1/2 Ns) 1,000 mls @ 50 mls/hr IV ASDIRECTED [facility] Last Admin: 04/20/19 09:06 Dose: 50 mls/hr Magnesium Sulfate/Dextrose 1 (gm/ Premix) 100 mls @ 100 mls/hr IV ONETIME ONE Stop: 04/20/19 09:45 Last Admin: 04/20/19 09:07 Dose: 100 mls/hr Iopamidol (Isovue-370 (76%)) 100 ml IVPUSH ONETIME ONE Stop: 04/17/19 11:17 Last Admin: 04/17/19 12:09 Dose: 100 ml Ketamine HCl (Ketalar) Confirm Administered Dose 500 mg .ROUTE .STK-MED ONE Stop: 04/19/19 11:55 Ketorolac Tromethamine (Toradol) Confirm Administered Dose 30 mg .ROUTE .STK- MED ONE Stop: 04/19/19 13:47 Lidocaine HCl (Xylocaine 1%) Confirm Administered Dose 50 ml .ROUTE .STK-MED ONE Stop: 04/19/19 11:09 Last Admin: 04/19/19 11:53 Dose: 25 ml Metoclopramide HCl (Reglan) 10 mg IVPUSH ONETIME [facility] Stop: 04/16/19 22:29 Last Admin: 04/16/19 22:39 Dose: 10 mg Midazolam HCl (Versed 1 Mg/Ml) Confirm Administered Dose 2 mg .ROUTE .STK-MED ONE Stop: 04/19/19 10:39 Neostigmine Methylsulfate (Neostigmine) Confirm Administered Dose 5 mg .ROUTE .STK-MED ONE Stop: 04/19/19 13:35 Ondansetron HCl (Zofran) 4 mg IVPUSH ONETIME ONE Stop: 04/16/19 22:29 Last Admin: 04/16/19 22:39 Dose: 4 mg Ondansetron HCl (Zofran) Confirm Administered Dose 4 mg .ROUTE .STK-MED ONE Stop: 04/19/19 10:39 Ondansetron HCl (Zofran) 4 mg IVPUSH ONETIME PRN PRN Reason: Nausea/Vomiting Stop: 04/19/19 16:00 Phenylephrine HCl (Phenylephrine In Ns 100 Mcg/Ml) Confirm Administered Dose 1 mg .ROUTE .STK-MED ONE Stop: 04/19/19 11:34 Propofol (Diprivan 20 Ml) Confirm Administered Dose 400 mg .ROUTE .STK-MED ONE Stop: 04/19/19 10:39 Rocuronium [place] (Zemuron) Confirm Administered Dose 50 mg .ROUTE .STK-MED ONE Stop: 04/19/19 10:40 Scopolamine (Transderm-Scop) 1.5 mg TRDERM ONETIME ONE Stop: 04/19/19 08:06 Last Admin: 04/19/19 08:24 Dose: 1.5 mg Sodium Chloride (Saline Flush) 10 ml FLUSH ONETIME PRN PRN Reason: Keep Vein Open Last Admin: 04/17/19 12:14 Dose: 10 ml Succinylcholine Chloride (Succinylcholine In Ns Pf) Confirm Administered Dose 100 mg .ROUTE .STK-MED ONE Stop: 04/19/19 10:39 - Exam Wound/Incisions: Healing Well, Dressing Dry and Intact, No Drainage General: Alert, Oriented, Cooperative, No Acute Distress GI/Abdominal Exam: Soft, Other (appropriately tender to palpation, incisions healing well) - Problem List & Annotations (1) Nausea & vomiting SNOMED Code(s): 78152535 Code(s): R11.2 - NAUSEA WITH VOMITING, UNSPECIFIED Status: Acute Priority : Medium Current Visit: Yes Onset Date: 04/17/19 Qualifiers: Vomiting type: unspecified Vomiting Intractability: non-intractable Qualified Code(s): R11.2 - Nausea with vomiting, unspecified (2) Hiatal hernia SNOMED Code(s): 60827695 Code(s): K44.9 - DIAPHRAGMATIC HERNIA WITHOUT OBSTRUCTION OR GANGRENE Status: Acute Priority: Medium Current Visit: Yes Onset Date: 04/17/19 (3) S/P right hemicolectomy SNOMED Code(s): 441766532, 954942569, 962734791 Code(s): Z90.49 - ACQUIRED ABSENCE OF OTHER SPECIFIED PARTS OF DIGESTIVE TRACT Status: Acute Priority: High Current Visit: Yes - Problem List Review Problem List Initiated/Reviewed/Updated: No - My Orders Last 24 Hours: Active Orders 24 hr Category Date Time Status Remove Urinary Catheter [Urinary Catheter Removal] [RC] Care 04/20/19 09:00 Active Per Unit Routine Clear Liquid Diet [DIET] Diet 04/20/19 Breakfast Active Soft Diet [DIET] Diet 04/21/19 Lunch Ordered CBC WITH AUTO DIFF [HEME] AM Lab 04/22/19 05:11 Ordered CBC WITH AUTO DIFF [HEME] AM Lab 04/23/19 05:11 Ordered CMP [COMPREHENSIVE METABOLIC PN,CMP] [CHEM] AM Lab 04/22/19 05:11 Ordered CMP [COMPREHENSIVE METABOLIC PN,CMP] [CHEM] AM Lab 04/23/19 05:11 Ordered MAGNESIUM [CHEM] AM Lab 04/22/19 05:11 Ordered MAGNESIUM [CHEM] AM Lab 04/23/19 05:11 Ordered Remove Patch Med 04/22/19 08:00 Once 0 ea TRDERM ONETIME ONE oxyCODONE Med 04/20/19 08:05 Active 5 - 10 mg PO Q6H PRN Medication Orders Acetaminophen (Tylenol) 650 mg PO Q6H [facility] Last Admin: 04/21/19 03:33 Dose: 650 mg Admin: 04/20/19 20:51 Dose: 650 mg Admin: 04/20/19 14:15 Dose: 650 mg Admin: 04/20/19 09:09 Dose: 650 mg Admin: 04/20/19 03:15 Dose: 650 mg Admin: 04/19/19 20:56 Dose: 650 mg Enoxaparin Sodium (Lovenox) 40 mg SUBCUT Q24H [facility] Last Admin: 04/20/19 20:52 Dose: 40 mg Admin: 04/19/19 20:58 Dose: 40 mg Admin: 04/18/19 20:40 Dose: Hydromorphone HCl (Dilaudid) 0.5 mg IVPUSH Q2H PRN PRN Reason: Pain Last Admin: 04/20/19 20:53 Dose: 0.5 mg Admin: 04/20/19 03:15 Dose: 0.5 mg Admin: 04/19/19 21:16 Dose: 0.5 mg Admin: 04/19/19 17:34 Dose: 0.5 mg Admin: 04/19/19 10:15 Dose: 0.5 mg Admin: 04/19/19 06:30 Dose: 0.5 mg Admin: 04/19/19 01:23 Dose: 0.5 mg Admin: 04/18/19 20:46 Dose: 0.5 mg Admin: 04/18/19 16:02 Dose: 0.5 mg Admin: 04/18/19 13:22 Dose: 0.5 mg Admin: 04/18/19 08:40 Dose: 0.5 mg Admin: 04/17/19 22:32 Dose: 0.5 mg Admin: 04/17/19 02:10 Dose: 0.5 mg Lidocaine/Sodium Bicarbonate (Buffered Lidocaine 1% In Ns 8.4%) 0.25 ml IDERM ONETIME PRN PRN Reason: Prior to IV Start Miscellaneous Information (Remove Patch) 0 ea TRDERM ONETIME ONE Stop: 04/22/19 08:01 Ondansetron HCl (Zofran) 4 mg IVPUSH Q6H PRN PRN Reason: Nausea Last Admin: 04/17/19 10:35 Dose: 4 mg Oxycodone HCl (Oxycodone) 5 - 10 mg PO Q6H PRN PRN Reason: Abdominal Pain Last Admin: 04/21/19 01:07 Dose: 10 mg Admin: 04/20/19 16:29 Dose: 5 mg Admin: 04/20/19 09:10 Dose: 5 mg Pantoprazole Sodium (Protonix) 40 mg PO DAILY@0700 [facility] Last Admin: 04/21/19 06:23 Dose: 40 mg Admin: 04/20/19 06:01 Dose: 40 mg Admin: 04/19/19 06:30 Dose: 40 mg Admin: 04/18/19 08:45 Dose: 40 mg Propranolol HCl (Inderal La) 80 mg PO DAILY [facility] Last Admin: 04/20/19 09:09 Dose: 80 mg Admin: 04/19/19 08:25 Dose: 80 mg Admin: 04/18/19 08:45 Dose: 80 mg Sodium Chloride (Saline Flush) 10 ml FLUSH ASDIRECTED PRN PRN Reason: Keep Vein Open - Plan Plan (Free Text/Narrative):: POD 2 doing well - Replace Potasium and magnesium - stop IV fluids - start soft diet today - Ambulate x 4 Disposition: pending diet tolerance and BM
[2019-04-21] MEDS ORDERED: Magnesium Sulfate/Water 2 GM in Premix Bag 1 BAG IV ONE (08:30)
[2019-04-21] MEDS: Propranolol 80 MG Cap.ER PO SCH (11:05)
--- NOTE | 2019-04-21 13:40 | PCM.PN ---
- General Info Date of Service: 04/21/19 Admission Dx/Problem (Free Text): Epigastric pain, nausea and vomiting Subjective Update: patient is doing well. She is up walking and passing gas. She is advancing her diet but has not had a bowel movement yet. Pain is well-controlled. - Review of Systems General: Reports: No Symptoms HEENT: Reports: No Symptoms Pulmonary: Reports: No Symptoms Cardiovascular: Reports: No Symptoms Gastrointestinal: Reports: Abdominal Pain Genitourinary: Reports: No Symptoms - Patient Data Vitals - Most Recent: Last Vital Signs Temp 98.6 F 04/21/19 11:31 Pulse 58 L 04/21/19 11:31 Resp 16 04/21/19 11:31 BP 117/64 04/21/19 11:31 Pulse Ox 95 04/21/19 11:31 Orthostatic Blood Pressure [ 122/91 Standing] Orthostatic Blood Pressure [ 135/79 Supine] Weight - Most Recent: 150 lb 12.8 oz I&O - Last 24 Hours: Intake & Output 04/20/19 04/21/19 04/21/19 22:59 06:59 14:59 Intake Total 2110 250 440 Output Total 400 600 Balance 1710 -350 440 Lab Results Last 24 Hours: Laboratory Results - last 24 hr 04/21/19 04/21/19 Range/Units 05:00 05:00 WBC 7.00 (3.98-10.04) K/mm3 RBC 3.69 L (3.98-5.22) M/mm3 Hgb 11.0 L (11.2-15.7) gm/L Hct 33.9 L (34.1-44.9) % MCV 91.9 (79.4-94.8) fl MCH 29.8 (25.6-32.2) pg MCHC 32.4 (32.2-35.5) g/dl RDW Std Deviation 46.8 H (36.4-46.3) fL Plt Count 209 (182-369) K/mm3 MPV 10.2 (9.4-12.3) fl Neut % (Auto) 73.5 H (34.0-71.1) % Lymph % (Auto) 11.7 L (19.3-51.7) % [place] % (Auto) 12.6 H (4.7-12.5) % Eos % (Auto) 1.9 (0.7-5.8) Baso % (Auto) 0.3 (0.1-1.2) % Neut # (Auto) 5.15 (1.56-6.13) K/mm3 Lymph # (Auto) 0.82 L (1.18-3.74) K/mm3 [place] # (Auto) 0.88 H (0.24-0.36) K/mm3 Eos # (Auto) 0.13 (0.04-0.36) K/mm3 Baso # (Auto) 0.02 (0.01-0.08) K/mm3 Sodium 139 (136-145) mEq/L Potassium 3.5 (3.5-5.1) mEq/L Chloride 105 (98-107) mEq/L Carbon Dioxide 24 (21-32) mEq/L Anion Gap 13.5 (5-15) BUN 11 (7-18) mg/dL Creatinine 0.8 (0.55-1.02) mg/dL Est Cr Clr Drug Dosing 71.81 mL/min Estimated GFR (MDRD) > 60 (>60) mL/min BUN/Creatinine Ratio 13.8 L (14-18) Glucose 96 (80-115) mg/dL Calcium 8.2 L (8.5-10.1) mg/dL Magnesium 1.7 L (1.8-2.4) mg/dl Total Bilirubin 1.6 H (0.2-1.0) mg/dL AST 17 (15-37) U/L ALT 17 (14-59) U/L Alkaline Phosphatase 78 (46-116) U/L Total Protein 5.5 L (6.4-8.2) g/dl Albumin 2.6 L (3.4-5.0) g/dl Globulin 2.9 gm/dL Albumin/Globulin Ratio 0.9 L (1-2) Med Orders - Current: Current Medications Acetaminophen (Tylenol) 650 mg PO Q6H [facility] Last Admin: 04/21/19 08:26 Dose: 650 mg Enoxaparin Sodium (Lovenox) 40 mg SUBCUT Q24H [facility] Last Admin: 04/20/19 20:52 Dose: 40 mg Hydromorphone HCl (Dilaudid) 0.5 mg IVPUSH Q2H PRN PRN Reason: Pain Last Admin: 04/20/19 20:53 Dose: 0.5 mg Miscellaneous Information (Remove Patch) 0 ea TRDERM ONETIME ONE Stop: 04/22/19 08:01 Ondansetron HCl (Zofran) 4 mg IVPUSH Q6H PRN PRN Reason: Nausea Last Admin: 04/17/19 10:35 Dose: 4 mg Oxycodone HCl (Oxycodone) 5 - 10 mg PO Q6H PRN PRN Reason: Abdominal Pain Last Admin: 04/21/19 01:07 Dose: 10 mg Pantoprazole Sodium (Protonix) 40 mg PO DAILY@0700 [facility] Last Admin: 04/21/19 06:23 Dose: 40 mg Propranolol HCl (Inderal La) 80 mg PO DAILY [facility] Last Admin: 04/21/19 11:05 Dose: Not Given Sodium Chloride (Saline Flush) 10 ml FLUSH ASDIRECTED PRN PRN Reason: Keep Vein Open Discontinued Medications Dexamethasone (Dexamethasone) Confirm Administered Dose 20 mg .ROUTE .STK-MED ONE Stop: 04/19/19 10:40 Diphenhydramine HCl (Benadryl) 25 mg IVPUSH Q6H PRN PRN Reason: Pruritis Stop: 04/19/19 16:00 Enoxaparin Sodium (Lovenox) 30 mg SUBCUT Q24H [facility] Last Admin: 04/17/19 22:25 Dose: 30 mg Ephedrine Sulfate (Ephedrine In Ns) Confirm Administered Dose 25 mg .ROUTE .STK- MED ONE Stop: 04/19/19 11:44 Ephedrine Sulfate (Ephedrine In Ns) Confirm Administered Dose 25 mg .ROUTE .STK- MED ONE Stop: 04/19/19 12:23 Fentanyl (Sublimaze) Confirm Administered Dose 250 mcg .ROUTE .STK-MED ONE Stop: 04/19/19 10:40 Fentanyl (Sublimaze) 50 mcg IVPUSH Q5M PRN PRN Reason: Pain Stop: 04/19/19 16:00 Last Admin: 04/19/19 15:09 Dose: 50 mcg Glycopyrrolate () Confirm Administered Dose 1 mg .ROUTE .STK-MED ONE Stop: 04/19/19 13:35 Hydromorphone HCl (Dilaudid) 0.5 mg IVPUSH ONETIME ONE Stop: 04/16/19 22:29 Last Admin: 04/16/19 22:38 Dose: 0.5 mg Hydromorphone HCl (Dilaudid) 0.5 mg IVPUSH Q15M PRN PRN Reason: severe pain Stop: 04/19/19 16:00 Last Admin: 04/19/19 15:20 Dose: 0.5 mg Sodium Chloride (Normal Saline) 1,000 mls @ 999 mls/hr IV ONETIME ONE Stop: 04/16/19 23:28 Last Admin: 04/16/19 22:38 Dose: 999 mls/hr Sodium Chloride (Normal Saline) 1,000 mls @ 150 mls/hr IV ASDIRECTED [facility] Last Admin: 04/18/19 07:31 Dose: 150 mls/hr Sodium Chloride (Normal Saline) 1,000 mls @ 999 mls/hr IV ASDIRECTED [facility] Stop: 04/17/19 12:31 Last Admin: 04/17/19 10:45 Dose: 999 mls/hr Potassium Chloride 10 meq/ (Premix) 100 mls @ 100 mls/hr IV Q1H [facility] Stop: 04/18/19 11:29 Last Admin: 04/18/19 11:07 Dose: 100 mls/hr Sodium Chloride (Normal Saline) 1,000 mls @ 100 mls/hr IV ASDIRECTED [facility] Stop: 04/19/19 11:00 Last Admin: 04/19/19 01:20 Dose: 100 mls/hr Lactated Ringer's (Ringers, Lactated) 1,000 mls @ 125 mls/hr IV ASDIRECTED [facility] Lactated Ringer's (Ringers, Lactated) 1,000 mls @ 125 mls/hr IV ASDIRECTED [facility] Potassium Chloride/Dextrose/Sod Cl (D5 Ns With 20 Meq Kcl) 1,000 mls @ 100 mls/ hr IV ASDIRECTED [facility] Last Admin: 04/19/19 17:33 Dose: 100 mls/hr Magnesium Sulfate 2 gm/ Premix 50 mls @ 25 mls/hr IV ONETIME ONE Stop: 04/19/19 10:03 Last Admin: 04/19/19 08:17 Dose: 25 mls/hr Potassium Chloride 10 meq/ (Premix) 100 mls @ 100 mls/hr IV Q1H [facility] Stop: 04/19/19 12:14 Last Admin: 04/19/19 16:29 Dose: 100 mls/hr Lidocaine HCl (Xylocaine-Mpf 1%) Confirm Administered Dose 4 mls @ as directed .ROUTE .STK-MED ONE Stop: 04/19/19 10:39 Lactated Ringer's (Ringers, Lactated) Confirm Administered Dose 1,000 mls @ as directed .ROUTE .STK-MED ONE Stop: 04/19/19 10:39 Ertapenem 1 gm/ Sodium (Chloride) 50 mls @ 100 mls/hr IV ONETIME ONE Stop: 04/19/19 11:59 Last Admin: 04/19/19 17:23 Dose: Not Given Lactated Ringer's (Ringers, Lactated) 1,000 mls @ 75 mls/hr IV ASDIRECTED [facility] Last Admin: 04/19/19 21:00 Dose: 75 mls/hr Dextrose/Sodium Chloride (Dextrose 5%-1/2 Ns) 1,000 mls @ 50 mls/hr IV ASDIRECTED [facility] Last Admin: 04/20/19 09:06 Dose: 50 mls/hr Magnesium Sulfate/Dextrose 1 (gm/ Premix) 100 mls @ 100 mls/hr IV ONETIME ONE Stop: 04/20/19 09:45 Last Admin: 04/20/19 09:07 Dose: 100 mls/hr Magnesium Sulfate 2 gm/ Premix 50 mls @ 25 mls/hr IV ONETIME ONE Stop: 04/21/19 10:29 Last Admin: 04/21/19 08:20 Dose: 25 mls/hr Iopamidol (Isovue-370 (76%)) 100 ml IVPUSH ONETIME ONE Stop: 04/17/19 11:17 Last Admin: 04/17/19 12:09 Dose: 100 ml Ketamine HCl (Ketalar) Confirm Administered Dose 500 mg .ROUTE .STK-MED ONE Stop: 04/19/19 11:55 Ketorolac Tromethamine (Toradol) Confirm Administered Dose 30 mg .ROUTE .STK- MED ONE Stop: 04/19/19 13:47 Lidocaine HCl (Xylocaine 1%) Confirm Administered Dose 50 ml .ROUTE .STK-MED ONE Stop: 04/19/19 11:09 Last Admin: 04/19/19 11:53 Dose: 25 ml Lidocaine/Sodium Bicarbonate (Buffered Lidocaine 1% In Ns 8.4%) 0.25 ml IDERM ONETIME PRN PRN Reason: Prior to IV Start Metoclopramide HCl (Reglan) 10 mg IVPUSH ONETIME STA Stop: 04/16/19 22:29 Last Admin: 04/16/19 22:39 Dose: 10 mg Midazolam HCl (Versed 1 Mg/Ml) Confirm Administered Dose 2 mg .ROUTE .STK-MED ONE Stop: 04/19/19 10:39 Neostigmine Methylsulfate (Neostigmine) Confirm Administered Dose 5 mg .ROUTE .STK-MED ONE Stop: 04/19/19 13:35 Ondansetron HCl (Zofran) 4 mg IVPUSH ONETIME ONE Stop: 04/16/19 22:29 Last Admin: 04/16/19 22:39 Dose: 4 mg Ondansetron HCl (Zofran) Confirm Administered Dose 4 mg .ROUTE .STK-MED ONE Stop: 04/19/19 10:39 Ondansetron HCl (Zofran) 4 mg IVPUSH ONETIME PRN PRN Reason: Nausea/Vomiting Stop: 04/19/19 16:00 Phenylephrine HCl (Phenylephrine In Ns 100 Mcg/Ml) Confirm Administered Dose 1 mg .ROUTE .STK-MED ONE Stop: 04/19/19 11:34 Propofol (Diprivan 20 Ml) Confirm Administered Dose 400 mg .ROUTE .STK-MED ONE Stop: 04/19/19 10:39 Rocuronium [place] (Zemuron) Confirm Administered Dose 50 mg .ROUTE .STK-MED ONE Stop: 04/19/19 10:40 Scopolamine (Transderm-Scop) 1.5 mg TRDERM ONETIME ONE Stop: 04/19/19 08:06 Last Admin: 04/19/19 08:24 Dose: 1.5 mg Sodium Chloride (Saline Flush) 10 ml FLUSH ONETIME PRN PRN Reason: Keep Vein Open Last Admin: 04/17/19 12:14 Dose: 10 ml Succinylcholine Chloride (Succinylcholine In Ns Pf) Confirm Administered Dose 100 mg .ROUTE .STK-MED ONE Stop: 04/19/19 10:39 - Exam Quality Assessment: No: Supplemental Oxygen General: Alert, Oriented HEENT: Pupils Equal, Mucous Membr. Moist/[place] Neck: Supple Lungs: Clear to Auscultation, Normal Respiratory Effort Cardiovascular: Regular Rate, Regular Rhythm GI/Abdominal Exam: Tender (mild tenderness no guarding or rebound.). No: Normal Bowel Sounds (decreased bowel sounds) Extremities: Normal Inspection, Normal Range of Motion, Non-Tender, No Pedal Edema Skin: Warm, Dry, Intact Neurological: No New Focal Deficit Psy/Mental Status: Alert, Normal Affect, Normal Mood - Problem List Review Problem List Initiated/Reviewed/Updated: Yes - My Orders Last 24 Hours: My Active Orders 04/22/19 05:11 CBC WITH AUTO DIFF [HEME] AM CMP [COMPREHENSIVE METABOLIC PN,CMP] [CHEM] AM MAGNESIUM [CHEM] AM 04/23/19 05:11 CBC WITH AUTO DIFF [HEME] AM CMP [COMPREHENSIVE METABOLIC PN,CMP] [CHEM] AM MAGNESIUM [CHEM] AM - Assessment Assessment:: small bowel abnormality of unknown cause causing distal symptoms but ? obstructive gerd hiatal hernia dehydration elavated t.b without def gb abnormalities on testing so far. upper endoscopy and hida scan / eval small bowel if needed . boh - Plan Plan:: Assessment * Small bowel obstruction: s/p right hemicolectomy - doing well * History of hiatal hernia * Hypomagnesemia : 1.7 * dehydration with acute renal injury resolved with normalization of creatinine of 0.8. Plan * MedSurg with telemetry * Replete potassium and magnesium * DC IV fluids * Advance diet per surgery. * Monitor CBC, CMP, and magnesium daily * Surgical consult is greatly appreciated * CODE STATUS: Full code * VTE prophylaxis with Lovenox
[2019-04-21] MEDS: Potassium Chloride 10 MEQ in Premix Bag 1 BAG IV SCH ×2 (14:10→16:59)
[2019-04-21] MEDS ORDERED: Sodium Chloride 0.9% 250 ML IV SCH (14:30)
[2019-04-21] MEDS: Enoxaparin 40 MG/0.4 ML Syringe SUBCUT SCH (21:32)
[2019-04-22] MEDS: Acetaminophen 325 MG Tab PO SCH ×3 (02:41→15:16)
[2019-04-22] MEDS: Pantoprazole 40 MG Tab.CR PO SCH (06:33)
[2019-04-22] MEDS: Propranolol 80 MG Cap.ER PO SCH (08:14)
--- NOTE | 2019-04-22 14:05 | PCM.SURGPN ---
- General Info Date of Service: 04/22/19 POD#: 3 Post-Op Diagnosis: right hemicolectomy Functional Status: Reports: Pain Controlled, Other (passing flatus, tolerating regular diet) - Patient Data Vitals - Most Recent: Last Vital Signs Temp 97.9 F 04/22/19 11:05 Pulse 59 L 04/22/19 11:05 Resp 20 04/22/19 11:05 BP 113/61 04/22/19 11:05 Pulse Ox 94 L 04/22/19 11:05 Orthostatic Blood Pressure [ 122/91 Standing] Orthostatic Blood Pressure [ 135/79 Supine] Weight - Most Recent: 68.13 kg I&O - Last 24 Hours: Intake & Output 04/21/19 04/22/19 04/22/19 22:59 06:59 14:59 Intake Total 1095 400 180 Output Total 1050 1000 Balance 45 -600 180 Lab Results Last 24 Hrs: Laboratory Results - last 24 hr 04/22/19 04/22/19 Range/Units 05:34 05:34 WBC 5.54 (3.98-10.04) K/mm3 RBC 3.41 L (3.98-5.22) M/mm3 Hgb 10.2 L (11.2-15.7) gm/L Hct 31.5 L (34.1-44.9) % MCV 92.4 (79.4-94.8) fl MCH 29.9 (25.6-32.2) pg MCHC 32.4 (32.2-35.5) g/dl RDW Std Deviation 47.2 H (36.4-46.3) fL Plt Count 212 (182-369) K/mm3 MPV 9.9 (9.4-12.3) fl Neut % (Auto) 63.1 (34.0-71.1) % Lymph % (Auto) 20.6 (19.3-51.7) % [place] % (Auto) 10.6 (4.7-12.5) % Eos % (Auto) 5.1 (0.7-5.8) Baso % (Auto) 0.4 (0.1-1.2) % Neut # (Auto) 3.50 (1.56-6.13) K/mm3 Lymph # (Auto) 1.14 L (1.18-3.74) K/mm3 [place] # (Auto) 0.59 H (0.24-0.36) K/mm3 Eos # (Auto) 0.28 (0.04-0.36) K/mm3 Baso # (Auto) 0.02 (0.01-0.08) K/mm3 Sodium 141 (136-145) mEq/L Potassium 3.6 (3.5-5.1) mEq/L Chloride 107 (98-107) mEq/L Carbon Dioxide 25 (21-32) mEq/L Anion Gap 12.6 (5-15) BUN 11 (7-18) mg/dL Creatinine 0.8 (0.55-1.02) mg/dL Est Cr Clr Drug Dosing 71.81 mL/min Estimated GFR (MDRD) > 60 (>60) mL/min BUN/Creatinine Ratio 13.8 L (14-18) Glucose 91 (80-115) mg/dL Calcium 8.2 L (8.5-10.1) mg/dL Magnesium 1.8 (1.8-2.4) mg/dl Total Bilirubin 1.3 H (0.2-1.0) mg/dL AST 19 (15-37) U/L ALT 16 (14-59) U/L Alkaline Phosphatase 91 (46-116) U/L Total Protein 5.3 L (6.4-8.2) g/dl Albumin 2.3 L (3.4-5.0) g/dl Globulin 3.0 gm/dL Albumin/Globulin Ratio 0.8 L (1-2) Med Orders - Current: Current Medications Acetaminophen (Tylenol) 650 mg PO Q6H [facility] Last Admin: 04/22/19 08:12 Dose: 650 mg Enoxaparin Sodium (Lovenox) 40 mg SUBCUT Q24H [facility] Last Admin: 04/21/19 21:32 Dose: 40 mg Hydromorphone HCl (Dilaudid) 0.5 mg IVPUSH Q2H PRN PRN Reason: Pain Last Admin: 04/20/19 20:53 Dose: 0.5 mg Ondansetron HCl (Zofran) 4 mg IVPUSH Q6H PRN PRN Reason: Nausea Last Admin: 04/17/19 10:35 Dose: 4 mg Oxycodone HCl (Oxycodone) 5 - 10 mg PO Q6H PRN PRN Reason: Abdominal Pain Last Admin: 04/21/19 16:51 Dose: 5 mg Pantoprazole Sodium (Protonix) 40 mg PO DAILY@0700 [facility] Last Admin: 04/22/19 06:33 Dose: 40 mg Propranolol HCl (Inderal La) 80 mg PO DAILY [facility] Last Admin: 04/22/19 08:14 Dose: 80 mg Sodium Chloride (Saline Flush) 10 ml FLUSH ASDIRECTED PRN PRN Reason: Keep Vein Open Discontinued Medications Dexamethasone (Dexamethasone) Confirm Administered Dose 20 mg .ROUTE .STK-MED ONE Stop: 04/19/19 10:40 Diphenhydramine HCl (Benadryl) 25 mg IVPUSH Q6H PRN PRN Reason: Pruritis Stop: 04/19/19 16:00 Enoxaparin Sodium (Lovenox) 30 mg SUBCUT Q24H [facility] Last Admin: 04/17/19 22:25 Dose: 30 mg Ephedrine Sulfate (Ephedrine In Ns) Confirm Administered Dose 25 mg .ROUTE .STK- MED ONE Stop: 04/19/19 11:44 Ephedrine Sulfate (Ephedrine In Ns) Confirm Administered Dose 25 mg .ROUTE .STK- MED ONE Stop: 04/19/19 12:23 Fentanyl (Sublimaze) Confirm Administered Dose 250 mcg .ROUTE .STK-MED ONE Stop: 04/19/19 10:40 Fentanyl (Sublimaze) 50 mcg IVPUSH Q5M PRN PRN Reason: Pain Stop: 04/19/19 16:00 Last Admin: 04/19/19 15:09 Dose: 50 mcg Glycopyrrolate () Confirm Administered Dose 1 mg .ROUTE .STK-MED ONE Stop: 04/19/19 13:35 Hydromorphone HCl (Dilaudid) 0.5 mg IVPUSH ONETIME ONE Stop: 04/16/19 22:29 Last Admin: 04/16/19 22:38 Dose: 0.5 mg Hydromorphone HCl (Dilaudid) 0.5 mg IVPUSH Q15M PRN PRN Reason: severe pain Stop: 04/19/19 16:00 Last Admin: 04/19/19 15:20 Dose: 0.5 mg Sodium Chloride (Normal Saline) 1,000 mls @ 999 mls/hr IV ONETIME ONE Stop: 04/16/19 23:28 Last Admin: 04/16/19 22:38 Dose: 999 mls/hr Sodium Chloride (Normal Saline) 1,000 mls @ 150 mls/hr IV ASDIRECTED [facility] Last Admin: 04/18/19 07:31 Dose: 150 mls/hr Sodium Chloride (Normal Saline) 1,000 mls @ 999 mls/hr IV ASDIRECTED [facility] Stop: 04/17/19 12:31 Last Admin: 04/17/19 10:45 Dose: 999 mls/hr Potassium Chloride 10 meq/ (Premix) 100 mls @ 100 mls/hr IV Q1H [facility] Stop: 04/18/19 11:29 Last Admin: 04/18/19 11:07 Dose: 100 mls/hr Sodium Chloride (Normal Saline) 1,000 mls @ 100 mls/hr IV ASDIRECTED [facility] Stop: 04/19/19 11:00 Last Admin: 04/19/19 01:20 Dose: 100 mls/hr Lactated Ringer's (Ringers, Lactated) 1,000 mls @ 125 mls/hr IV ASDIRECTED [facility] Lactated Ringer's (Ringers, Lactated) 1,000 mls @ 125 mls/hr IV ASDIRECTED [facility] Potassium Chloride/Dextrose/Sod Cl (D5 Ns With 20 Meq Kcl) 1,000 mls @ 100 mls/ hr IV ASDIRECTED [facility] Last Admin: 04/19/19 17:33 Dose: 100 mls/hr Magnesium Sulfate 2 gm/ Premix 50 mls @ 25 mls/hr IV ONETIME ONE Stop: 04/19/19 10:03 Last Admin: 04/19/19 08:17 Dose: 25 mls/hr Potassium Chloride 10 meq/ (Premix) 100 mls @ 100 mls/hr IV Q1H [facility] Stop: 04/19/19 12:14 Last Admin: 04/19/19 16:29 Dose: 100 mls/hr Lidocaine HCl (Xylocaine-Mpf 1%) Confirm Administered Dose 4 mls @ as directed .ROUTE .STK-MED ONE Stop: 04/19/19 10:39 Lactated Ringer's (Ringers, Lactated) Confirm Administered Dose 1,000 mls @ as directed .ROUTE .STK-MED ONE Stop: 04/19/19 10:39 Ertapenem 1 gm/ Sodium (Chloride) 50 mls @ 100 mls/hr IV ONETIME ONE Stop: 04/19/19 11:59 Last Admin: 04/19/19 17:23 Dose: Not Given Lactated Ringer's (Ringers, Lactated) 1,000 mls @ 75 mls/hr IV ASDIRECTED [facility] Last Admin: 04/19/19 21:00 Dose: 75 mls/hr Dextrose/Sodium Chloride (Dextrose 5%-1/2 Ns) 1,000 mls @ 50 mls/hr IV ASDIRECTED [facility] Last Admin: 04/20/19 09:06 Dose: 50 mls/hr Magnesium Sulfate/Dextrose 1 (gm/ Premix) 100 mls @ 100 mls/hr IV ONETIME ONE Stop: 04/20/19 09:45 Last Admin: 04/20/19 09:07 Dose: 100 mls/hr Magnesium Sulfate 2 gm/ Premix 50 mls @ 25 mls/hr IV ONETIME ONE Stop: 04/21/19 10:29 Last Admin: 04/21/19 08:20 Dose: 25 mls/hr Potassium Chloride 10 meq/ (Premix) 100 mls @ 100 mls/hr IV Q1H [facility] Stop: 04/21/19 15:44 Last Admin: 04/21/19 16:59 Dose: 100 mls/hr Sodium Chloride (Normal Saline) 250 mls @ 25 mls/hr IV ASDIRECTED [facility] Stop: 04/22/19 00:29 Last Admin: 04/21/19 14:56 Dose: 25 mls/hr Iopamidol (Isovue-370 (76%)) 100 ml IVPUSH ONETIME ONE Stop: 04/17/19 11:17 Last Admin: 04/17/19 12:09 Dose: 100 ml Ketamine HCl (Ketalar) Confirm Administered Dose 500 mg .ROUTE .STK-MED ONE Stop: 04/19/19 11:55 Ketorolac Tromethamine (Toradol) Confirm Administered Dose 30 mg .ROUTE .STK- MED ONE Stop: 04/19/19 13:47 Lidocaine HCl (Xylocaine 1%) Confirm Administered Dose 50 ml .ROUTE .STK-MED ONE Stop: 04/19/19 11:09 Last Admin: 04/19/19 11:53 Dose: 25 ml Lidocaine/Sodium Bicarbonate (Buffered Lidocaine 1% In Ns 8.4%) 0.25 ml IDERM ONETIME PRN PRN Reason: Prior to IV Start Metoclopramide HCl (Reglan) 10 mg IVPUSH ONETIME STA Stop: 04/16/19 22:29 Last Admin: 04/16/19 22:39 Dose: 10 mg Midazolam HCl (Versed 1 Mg/Ml) Confirm Administered Dose 2 mg .ROUTE .STK-MED ONE Stop: 04/19/19 10:39 Miscellaneous Information (Remove Patch) 0 ea TRDERM ONETIME ONE Stop: 04/22/19 08:01 Last Admin: 04/22/19 08:14 Dose: 1 ea Neostigmine Methylsulfate (Neostigmine) Confirm Administered Dose 5 mg .ROUTE .STK-MED ONE Stop: 04/19/19 13:35 Ondansetron HCl (Zofran) 4 mg IVPUSH ONETIME ONE Stop: 04/16/19 22:29 Last Admin: 04/16/19 22:39 Dose: 4 mg Ondansetron HCl (Zofran) Confirm Administered Dose 4 mg .ROUTE .STK-MED ONE Stop: 04/19/19 10:39 Ondansetron HCl (Zofran) 4 mg IVPUSH ONETIME PRN PRN Reason: Nausea/Vomiting Stop: 04/19/19 16:00 Phenylephrine HCl (Phenylephrine In Ns 100 Mcg/Ml) Confirm Administered Dose 1 mg .ROUTE .STK-MED ONE Stop: 04/19/19 11:34 Propofol (Diprivan 20 Ml) Confirm Administered Dose 400 mg .ROUTE .STK-MED ONE Stop: 04/19/19 10:39 Rocuronium [place] (Zemuron) Confirm Administered Dose 50 mg .ROUTE .STK-MED ONE Stop: 04/19/19 10:40 Scopolamine (Transderm-Scop) 1.5 mg TRDERM ONETIME ONE Stop: 04/19/19 08:06 Last Admin: 04/19/19 08:24 Dose: 1.5 mg Sodium Chloride (Saline Flush) 10 ml FLUSH ONETIME PRN PRN Reason: Keep Vein Open Last Admin: 04/17/19 12:14 Dose: 10 ml Succinylcholine Chloride (Succinylcholine In Ns Pf) Confirm Administered Dose 100 mg .ROUTE .STK-MED ONE Stop: 04/19/19 10:39 - Exam Wound/Incisions: Healing Well, No Drainage General: Alert, Oriented, Cooperative, No Acute Distress GI/Abdominal Exam: Soft, Other (appropriately tender to palpation, no distension.) - Problem List & Annotations (1) Nausea & vomiting SNOMED Code(s): 86067213 Code(s): R11.2 - NAUSEA WITH VOMITING, UNSPECIFIED Status: Acute Priority : Medium Current Visit: Yes Onset Date: 04/17/19 Qualifiers: Vomiting type: unspecified Vomiting Intractability: non-intractable Qualified Code(s): R11.2 - Nausea with vomiting, unspecified (2) Hiatal hernia SNOMED Code(s): 90823981 Code(s): K44.9 - DIAPHRAGMATIC HERNIA WITHOUT OBSTRUCTION OR GANGRENE Status: Acute Priority: Medium Current Visit: Yes Onset Date: 04/17/19 (3) S/P right hemicolectomy SNOMED Code(s): 140960456, 098924787, 238549454 Code(s): Z90.49 - ACQUIRED ABSENCE OF OTHER SPECIFIED PARTS OF DIGESTIVE TRACT Status: Acute Priority: High Current Visit: Yes - Problem List Review Problem List Initiated/Reviewed/Updated: No - My Orders Last 24 Hours: Active Orders 24 hr Category Date Time Status Consult to Dietary [Consult to [employer]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 [employer]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] [CONS] Cons 04/21/19 16:38 Active Routine CBC WITH AUTO DIFF [HEME] AM Lab 04/23/19 05:11 Ordered CMP [COMPREHENSIVE METABOLIC PN,CMP] [CHEM] AM Lab 04/23/19 05:11 Ordered MAGNESIUM [CHEM] AM Lab 04/23/19 05:11 Ordered Medication Orders Acetaminophen (Tylenol) 650 mg PO Q6H [facility] Last Admin: 04/22/19 08:12 Dose: 650 mg Admin: 04/22/19 02:41 Dose: 650 mg Admin: 04/21/19 21:31 Dose: 650 mg Admin: 04/21/19 15:00 Dose: 650 mg Admin: 04/21/19 08:26 Dose: 650 mg Admin: 04/21/19 03:33 Dose: 650 mg Admin: 04/20/19 20:51 Dose: 650 mg Admin: 04/20/19 14:15 Dose: 650 mg Admin: 04/20/19 09:09 Dose: 650 mg Admin: 04/20/19 03:15 Dose: 650 mg Admin: 04/19/19 20:56 Dose: 650 mg Enoxaparin Sodium (Lovenox) 40 mg SUBCUT Q24H [facility] Last Admin: 04/21/19 21:32 Dose: 40 mg Admin: 04/20/19 20:52 Dose: 40 mg Admin: 04/19/19 20:58 Dose: 40 mg Admin: 04/18/19 20:40 Dose: Hydromorphone HCl (Dilaudid) 0.5 mg IVPUSH Q2H PRN PRN Reason: Pain Last Admin: 04/20/19 20:53 Dose: 0.5 mg Admin: 04/20/19 03:15 Dose: 0.5 mg Admin: 04/19/19 21:16 Dose: 0.5 mg Admin: 04/19/19 17:34 Dose: 0.5 mg Admin: 04/19/19 10:15 Dose: 0.5 mg Admin: 04/19/19 06:30 Dose: 0.5 mg Admin: 04/19/19 01:23 Dose: 0.5 mg Admin: 04/18/19 20:46 Dose: 0.5 mg Admin: 04/18/19 16:02 Dose: 0.5 mg Admin: 04/18/19 13:22 Dose: 0.5 mg Admin: 04/18/19 08:40 Dose: 0.5 mg Admin: 04/17/19 22:32 Dose: 0.5 mg Admin: 04/17/19 02:10 Dose: 0.5 mg Ondansetron HCl (Zofran) 4 mg IVPUSH Q6H PRN PRN Reason: Nausea Last Admin: 04/17/19 10:35 Dose: 4 mg Oxycodone HCl (Oxycodone) 5 - 10 mg PO Q6H PRN PRN Reason: Abdominal Pain Last Admin: 04/21/19 16:51 Dose: 5 mg Admin: 04/21/19 01:07 Dose: 10 mg Admin: 04/20/19 16:29 Dose: 5 mg Admin: 04/20/19 09:10 Dose: 5 mg Pantoprazole Sodium (Protonix) 40 mg PO DAILY@0700 [facility] Last Admin: 04/22/19 06:33 Dose: 40 mg Admin: 04/21/19 06:23 Dose: 40 mg Admin: 04/20/19 06:01 Dose: 40 mg Admin: 04/19/19 06:30 Dose: 40 mg Admin: 04/18/19 08:45 Dose: 40 mg Propranolol HCl (Inderal La) 80 mg PO DAILY [facility] Last Admin: 04/22/19 08:14 Dose: 80 mg Admin: 04/21/19 11:05 Dose: Not Given Admin: 04/20/19 09:09 Dose: 80 mg Admin: 04/19/19 08:25 Dose: 80 mg Admin: 04/18/19 08:45 Dose: 80 mg Sodium Chloride (Saline Flush) 10 ml FLUSH ASDIRECTED PRN PRN Reason: Keep Vein Open - Plan Plan (Free Text/Narrative):: POD 3 R hemicolectomy. Progressing well. Ambulating, tolerating diet, passing flatus. Plan - regular diet - can go home today if feels well after lunch - needs percocet 5-325mg every 6 hours x 4 days - colace 100 mg BID x 15 days - FOllow up in my clinic in 2 weeks after discharge
--- NOTE | 2019-04-22 14:46 | PCM.DCSUM1 ---
Discharge Summary - Hospital Course HPI Initial Comments: 63 year old cauc. female with 6 week hx of abd pain plus minus bloating a nd change in b.h . with hx of prev. gerd and minimal ibs symptoms and hiatal hernia . underwent laparoscopy eval for eval of poss. rt lower bowel wall thickining and changes on c.t scan. hx of colonoscopy as 37 year old . no abd surgeries. pain ruq and sharp and colicky waxing and waning byut not going away . no fever weight loss or chills . no recent travel or uncooked foods . no tainted water . no diarrhea but mild changes in b.h. nausea and gastritis symptoms within minutes of eating and upper endo did not show stricture or obstruction / nor any abnormal path on u.s of liver and g.b. no elevation of amylase and hida scan scheduled but pain worsening again a nd unable to eat. admitted for pain control and surgical eval. and i.v therapy as mild dehydration a nd elavated t.b / creatinine on lab fh of colon cancer in dad in 50s. \ otherwise healthy mild ibs symptoms mild reflux. Diagnosis: Stroke: No - Discharge Data Discharge Date: 04/22/19 Discharge Disposition: Home, Self-Care 01 Condition: Good - Referral to Home Health Primary Care Physician: Katty Arreola MD - Patient Summary/Data Operative Procedure(s) Performed: Laparoscopic right hemicolectomy Consults: Consultations 04/17/19 03:37 Consult to Physician [CONS] Routine 04/21/19 16:38 Consult to Dietary [Consult to Director Of Physical Security] [CONS] Routine Hospital Course: CT scan abdomen showed 1. Diffuse small bowel dilatation containing fluid consistent with small bowel obstruction. Transitional point appears to be at the terminal ileum which may represent scarring from old inflammatory bowel disease. Difficult to completely exclude small tumor as an etiology of the ileocecal valve. 2. Small amount of free fluid most likely reactive from the small bowel section. 3. Other incidental findings. Decision was made to bring the patient to the OR and a right hemicolectomy was done. Small mass was found at the area of the ileocecal valve which was sent for pathology. Patient had an uneventful postoperative course and quickly felt better and started moving air. She will follow-up with her private provider and surgeon for results of pathology. - Patient Instructions Diet: Usual Diet as Tolerated Activity: As Tolerated Driving: May Drive Today Showering/Bathing: May Shower Notify Provider of: Increased Pain, Nausea and/or Vomiting - Discharge Plan *PRESCRIPTION DRUG MONITORING PROGRAM REVIEWED*: Not Applicable *COPY OF PRESCRIPTION DRUG MONITORING REPORT IN PATIENT ERLINDA: Not Applicable Prescriptions/Med Rec: Docusate Sodium [Colace] 100 mg PO BID 15 Days capsule oxyCODONE 5 - 10 mg PO Q6H PRN #10 tablet PRN Reason: Abdominal Pain Home Medications: Home Meds Multivits,Th w-Fe,Other Min [Complete Multivitamin] 1 tab PO DAILY 04/03/19 [ History] Oxybutynin Chloride [Ditropan Xl] 10 mg PO DAILY 04/03/19 [History] Propranolol [Inderal LA] 80 mg PO DAILY 04/03/19 [History] Pantoprazole Sodium [Protonix] 40 mg PO DAILY 04/08/19 [History] Ondansetron [Zofran] 4 mg BUCCAL Q4H PRN 04/17/19 [History] Docusate Sodium [Colace] 100 mg PO BID 15 Days capsule 04/22/19 [Rx] oxyCODONE 5 - 10 mg PO Q6H PRN #10 tablet 04/22/19 [Rx] Oxygen Therapy Mode: Room Air Patient Handouts: Laparoscopic Colectomy, Laparoscopic Colectomy, Care After Referrals: Katty Arreola MD [Primary Care Provider] - 05/06/19 4:00 pm Virgie Bonilla MD [Physician] - 05/06/19 10:30 am - Discharge Summary/Plan Comment DC Time >30 min.: Yes Discharge Summary/Plan Comment: Patient will be discharged home in good condition. She will follow-up with Dr. Bonilla and her primary care provider. - General Info Date of Service: 04/22/19 Admission Dx/Problem (Free Text: Epigastric pain, nausea and vomiting Subjective Update: Patient is doing very well this morning. She is moving air but has not had a bowel movement yet. She is tolerating a regular diet. Functional Status: Reports: Pain Controlled - Review of Systems General: Reports: No Symptoms HEENT: Reports: No Symptoms Pulmonary: Reports: No Symptoms Cardiovascular: Reports: No Symptoms Gastrointestinal: Reports: Abdominal Pain (Mild), Flatus. Denies: Hematochezia , Nausea, Vomiting - Patient Data Vitals - Most Recent: Last Vital Signs Temp 97.9 F 04/22/19 11:05 Pulse 59 L 04/22/19 11:05 Resp 20 04/22/19 11:05 BP 113/61 04/22/19 11:05 Pulse Ox 94 L 04/22/19 11:05 Orthostatic Blood Pressure [ 122/91 Standing] Orthostatic Blood Pressure [ 135/79 Supine] Weight - Most Recent: 150 lb 3.2 oz I&O - Last 24 hours: Intake & Output 04/21/19 04/22/19 04/22/19 22:59 06:59 14:59 Intake Total 1095 400 180 Output Total 1050 1000 Balance 45 -600 180 Lab Results - Last 24 hrs: Laboratory Results - last 24 hr 04/22/19 04/22/19 Range/Units 05:34 05:34 WBC 5.54 (3.98-10.04) K/mm3 RBC 3.41 L (3.98-5.22) M/mm3 Hgb 10.2 L (11.2-15.7) gm/L Hct 31.5 L (34.1-44.9) % MCV 92.4 (79.4-94.8) fl MCH 29.9 (25.6-32.2) pg MCHC 32.4 (32.2-35.5) g/dl RDW Std Deviation 47.2 H (36.4-46.3) fL Plt Count 212 (182-369) K/mm3 MPV 9.9 (9.4-12.3) fl Neut % (Auto) 63.1 (34.0-71.1) % Lymph % (Auto) 20.6 (19.3-51.7) % [place] % (Auto) 10.6 (4.7-12.5) % Eos % (Auto) 5.1 (0.7-5.8) Baso % (Auto) 0.4 (0.1-1.2) % Neut # (Auto) 3.50 (1.56-6.13) K/mm3 Lymph # (Auto) 1.14 L (1.18-3.74) K/mm3 [place] # (Auto) 0.59 H (0.24-0.36) K/mm3 Eos # (Auto) 0.28 (0.04-0.36) K/mm3 Baso # (Auto) 0.02 (0.01-0.08) K/mm3 Sodium 141 (136-145) mEq/L Potassium 3.6 (3.5-5.1) mEq/L Chloride 107 (98-107) mEq/L Carbon Dioxide 25 (21-32) mEq/L Anion Gap 12.6 (5-15) BUN 11 (7-18) mg/dL Creatinine 0.8 (0.55-1.02) mg/dL Est Cr Clr Drug Dosing 71.81 mL/min Estimated GFR (MDRD) > 60 (>60) mL/min BUN/Creatinine Ratio 13.8 L (14-18) Glucose 91 (80-115) mg/dL Calcium 8.2 L (8.5-10.1) mg/dL Magnesium 1.8 (1.8-2.4) mg/dl Total Bilirubin 1.3 H (0.2-1.0) mg/dL AST 19 (15-37) U/L ALT 16 (14-59) U/L Alkaline Phosphatase 91 (46-116) U/L Total Protein 5.3 L (6.4-8.2) g/dl Albumin 2.3 L (3.4-5.0) g/dl Globulin 3.0 gm/dL Albumin/Globulin Ratio 0.8 L (1-2) Med Orders - Current: Current Medications Acetaminophen (Tylenol) 650 mg PO Q6H [facility] Last Admin: 04/22/19 08:12 Dose: 650 mg Enoxaparin Sodium (Lovenox) 40 mg SUBCUT Q24H [facility] Last Admin: 04/21/19 21:32 Dose: 40 mg Hydromorphone HCl (Dilaudid) 0.5 mg IVPUSH Q2H PRN PRN Reason: Pain Last Admin: 04/20/19 20:53 Dose: 0.5 mg Ondansetron HCl (Zofran) 4 mg IVPUSH Q6H PRN PRN Reason: Nausea Last Admin: 04/17/19 10:35 Dose: 4 mg Oxycodone HCl (Oxycodone) 5 - 10 mg PO Q6H PRN PRN Reason: Abdominal Pain Last Admin: 04/21/19 16:51 Dose: 5 mg Pantoprazole Sodium (Protonix) 40 mg PO DAILY@0700 [facility] Last Admin: 04/22/19 06:33 Dose: 40 mg Propranolol HCl (Inderal La) 80 mg PO DAILY [facility] Last Admin: 04/22/19 08:14 Dose: 80 mg Sodium Chloride (Saline Flush) 10 ml FLUSH ASDIRECTED PRN PRN Reason: Keep Vein Open Discontinued Medications Dexamethasone (Dexamethasone) Confirm Administered Dose 20 mg .ROUTE .STK-MED ONE Stop: 04/19/19 10:40 Diphenhydramine HCl (Benadryl) 25 mg IVPUSH Q6H PRN PRN Reason: Pruritis Stop: 04/19/19 16:00 Enoxaparin Sodium (Lovenox) 30 mg SUBCUT Q24H [facility] Last Admin: 04/17/19 22:25 Dose: 30 mg Ephedrine Sulfate (Ephedrine In Ns) Confirm Administered Dose 25 mg .ROUTE .STK- MED ONE Stop: 04/19/19 11:44 Ephedrine Sulfate (Ephedrine In Ns) Confirm Administered Dose 25 mg .ROUTE .STK- MED ONE Stop: 04/19/19 12:23 Fentanyl (Sublimaze) Confirm Administered Dose 250 mcg .ROUTE .STK-MED ONE Stop: 04/19/19 10:40 Fentanyl (Sublimaze) 50 mcg IVPUSH Q5M PRN PRN Reason: Pain Stop: 04/19/19 16:00 Last Admin: 04/19/19 15:09 Dose: 50 mcg Glycopyrrolate () Confirm Administered Dose 1 mg .ROUTE .STK-MED ONE Stop: 04/19/19 13:35 Hydromorphone HCl (Dilaudid) 0.5 mg IVPUSH ONETIME ONE Stop: 04/16/19 22:29 Last Admin: 04/16/19 22:38 Dose: 0.5 mg Hydromorphone HCl (Dilaudid) 0.5 mg IVPUSH Q15M PRN PRN Reason: severe pain Stop: 04/19/19 16:00 Last Admin: 04/19/19 15:20 Dose: 0.5 mg Sodium Chloride (Normal Saline) 1,000 mls @ 999 mls/hr IV ONETIME ONE Stop: 04/16/19 23:28 Last Admin: 04/16/19 22:38 Dose: 999 mls/hr Sodium Chloride (Normal Saline) 1,000 mls @ 150 mls/hr IV ASDIRECTED [facility] Last Admin: 04/18/19 07:31 Dose: 150 mls/hr Sodium Chloride (Normal Saline) 1,000 mls @ 999 mls/hr IV ASDIRECTED [facility] Stop: 04/17/19 12:31 Last Admin: 04/17/19 10:45 Dose: 999 mls/hr Potassium Chloride 10 meq/ (Premix) 100 mls @ 100 mls/hr IV Q1H [facility] Stop: 04/18/19 11:29 Last Admin: 04/18/19 11:07 Dose: 100 mls/hr Sodium Chloride (Normal Saline) 1,000 mls @ 100 mls/hr IV ASDIRECTED [facility] Stop: 04/19/19 11:00 Last Admin: 04/19/19 01:20 Dose: 100 mls/hr Lactated Ringer's (Ringers, Lactated) 1,000 mls @ 125 mls/hr IV ASDIRECTED [facility] Lactated Ringer's (Ringers, Lactated) 1,000 mls @ 125 mls/hr IV ASDIRECTED [facility] Potassium Chloride/Dextrose/Sod Cl (D5 Ns With 20 Meq Kcl) 1,000 mls @ 100 mls/ hr IV ASDIRECTED [facility] Last Admin: 04/19/19 17:33 Dose: 100 mls/hr Magnesium Sulfate 2 gm/ Premix 50 mls @ 25 mls/hr IV ONETIME ONE Stop: 04/19/19 10:03 Last Admin: 04/19/19 08:17 Dose: 25 mls/hr Potassium Chloride 10 meq/ (Premix) 100 mls @ 100 mls/hr IV Q1H [facility] Stop: 04/19/19 12:14 Last Admin: 04/19/19 16:29 Dose: 100 mls/hr Lidocaine HCl (Xylocaine-Mpf 1%) Confirm Administered Dose 4 mls @ as directed .ROUTE .STK-MED ONE Stop: 04/19/19 10:39 Lactated Ringer's (Ringers, Lactated) Confirm Administered Dose 1,000 mls @ as directed .ROUTE .STK-MED ONE Stop: 04/19/19 10:39 Ertapenem 1 gm/ Sodium (Chloride) 50 mls @ 100 mls/hr IV ONETIME ONE Stop: 04/19/19 11:59 Last Admin: 04/19/19 17:23 Dose: Not Given Lactated Ringer's (Ringers, Lactated) 1,000 mls @ 75 mls/hr IV ASDIRECTED [facility] Last Admin: 04/19/19 21:00 Dose: 75 mls/hr Dextrose/Sodium Chloride (Dextrose 5%-1/2 Ns) 1,000 mls @ 50 mls/hr IV ASDIRECTED [facility] Last Admin: 04/20/19 09:06 Dose: 50 mls/hr Magnesium Sulfate/Dextrose 1 (gm/ Premix) 100 mls @ 100 mls/hr IV ONETIME ONE Stop: 04/20/19 09:45 Last Admin: 04/20/19 09:07 Dose: 100 mls/hr Magnesium Sulfate 2 gm/ Premix 50 mls @ 25 mls/hr IV ONETIME ONE Stop: 04/21/19 10:29 Last Admin: 04/21/19 08:20 Dose: 25 mls/hr Potassium Chloride 10 meq/ (Premix) 100 mls @ 100 mls/hr IV Q1H [facility] Stop: 04/21/19 15:44 Last Admin: 04/21/19 16:59 Dose: 100 mls/hr Sodium Chloride (Normal Saline) 250 mls @ 25 mls/hr IV ASDIRECTED [facility] Stop: 04/22/19 00:29 Last Admin: 04/21/19 14:56 Dose: 25 mls/hr Iopamidol (Isovue-370 (76%)) 100 ml IVPUSH ONETIME ONE Stop: 04/17/19 11:17 Last Admin: 04/17/19 12:09 Dose: 100 ml Ketamine HCl (Ketalar) Confirm Administered Dose 500 mg .ROUTE .STK-MED ONE Stop: 04/19/19 11:55 Ketorolac Tromethamine (Toradol) Confirm Administered Dose 30 mg .ROUTE .STK- MED ONE Stop: 04/19/19 13:47 Lidocaine HCl (Xylocaine 1%) Confirm Administered Dose 50 ml .ROUTE .STK-MED ONE Stop: 04/19/19 11:09 Last Admin: 04/19/19 11:53 Dose: 25 ml Lidocaine/Sodium Bicarbonate (Buffered Lidocaine 1% In Ns 8.4%) 0.25 ml IDERM ONETIME PRN PRN Reason: Prior to IV Start Metoclopramide HCl (Reglan) 10 mg IVPUSH ONETIME STA Stop: 04/16/19 22:29 Last Admin: 04/16/19 22:39 Dose: 10 mg Midazolam HCl (Versed 1 Mg/Ml) Confirm Administered Dose 2 mg .ROUTE .STK-MED ONE Stop: 04/19/19 10:39 Miscellaneous Information (Remove Patch) 0 ea TRDERM ONETIME ONE Stop: 04/22/19 08:01 Last Admin: 04/22/19 08:14 Dose: 1 ea Neostigmine Methylsulfate (Neostigmine) Confirm Administered Dose 5 mg .ROUTE .STK-MED ONE Stop: 04/19/19 13:35 Ondansetron HCl (Zofran) 4 mg IVPUSH ONETIME ONE Stop: 04/16/19 22:29 Last Admin: 04/16/19 22:39 Dose: 4 mg Ondansetron HCl (Zofran) Confirm Administered Dose 4 mg .ROUTE .STK-MED ONE Stop: 04/19/19 10:39 Ondansetron HCl (Zofran) 4 mg IVPUSH ONETIME PRN PRN Reason: Nausea/Vomiting Stop: 04/19/19 16:00 Phenylephrine HCl (Phenylephrine In Ns 100 Mcg/Ml) Confirm Administered Dose 1 mg .ROUTE .STK-MED ONE Stop: 04/19/19 11:34 Propofol (Diprivan 20 Ml) Confirm Administered Dose 400 mg .ROUTE .STK-MED ONE Stop: 04/19/19 10:39 Rocuronium [place] (Zemuron) Confirm Administered Dose 50 mg .ROUTE .STK-MED ONE Stop: 04/19/19 10:40 Scopolamine (Transderm-Scop) 1.5 mg TRDERM ONETIME ONE Stop: 04/19/19 08:06 Last Admin: 04/19/19 08:24 Dose: 1.5 mg Sodium Chloride (Saline Flush) 10 ml FLUSH ONETIME PRN PRN Reason: Keep Vein Open Last Admin: 04/17/19 12:14 Dose: 10 ml Succinylcholine Chloride (Succinylcholine In Ns Pf) Confirm Administered Dose 100 mg .ROUTE .STK-MED ONE Stop: 04/19/19 10:39 - Exam Quality Assessment: Denies: Supplemental Oxygen General: Reports: Alert, Oriented HEENT: Reports: Pupils Equal, Mucous Membr. Moist/[place] Neck: Reports: Supple Lungs: Reports: Clear to Auscultation, Normal Respiratory Effort Cardiovascular: Reports: Regular Rate, Regular Rhythm GI/Abdominal Exam: Normal Bowel Sounds, Soft, No Organomegaly, No Distention, No Mass, Tender (Mild right upper quadrant tenderness). No: Guarding, Rigid, Rebound Extremities: Normal Inspection, Normal Range of Motion, Non-Tender, No Pedal Edema Skin: Reports: Warm, Dry, Intact Wound/Incisions: Reports: Healing Well Psy/Mental Status: Reports: Alert, Normal Affect, Normal Mood
--- NOTE | 2019-04-28 16:35 | PCM.SN ---
- Free Text/Narrative Note: This is an addendum to the operative report. Dr. Pepe Whitlock was an assistant professor in family studies surgeon. Please refer to the operative report for details of his assistance with the case.
== END 2019-04-22 16:15 | disposition home or self-care (01) | DRG 231 ==
LOC: JD.ED 21:22 → JD.MS 04-17 00:44 → OBSVTOIN 04-18 17:01
PROVIDERS: ADMIT Pediatrics; ATTEND Pediatrics
PROC: 0DTF4ZZ Resection of Right Large Intestine, Percutaneous Endoscopic Approach (ICD-10-PCS; principal; 2019-04-19)
DX: C18.0 Malignant neoplasm of cecum (principal); K44.0 Diaphragmatic hernia with obstruction, without gangrene; K63.89 Other specified diseases of intestine; E86.0 Dehydration; K21.9 Gastro-esophageal reflux disease without esophagitis; M81.0 Age-related osteoporosis without current pathological fracture; M19.90 Unspecified osteoarthritis, unspecified site; I95.1 Orthostatic hypotension; E83.42 Hypomagnesemia; N17.9 Acute kidney failure, unspecified; E87.6 Hypokalemia; E80.6 Other disorders of bilirubin metabolism; Z98.890 Other specified postprocedural states; Z99.81 Dependence on supplemental oxygen; Z79.899 Other long term (current) drug therapy
CPT/HCPCS: 00790; 36415; 74018; 74018-26; 74177; 74177-26; 80053; 82150; 82378; 82962; 83690; 83735; 85007; 85025; 85027; 85379; 86140; 86301; 86850; 86900; 86901; 93005; 93010; 94760; 96361; 96365; 96366; 96372; 96374; 96375; 96376; 99285; 99285-25; A9270-GY; G0378; J0330; J1100; J1170; J1650; J1885; J2001; J2250; J2370; J2405; J2704; J2710; J2765; J3010; J3475; J3480; J7040; J7042; J7050; J7120; Q9967

== ENCOUNTER 2019-06-06 07:02 | Day surgery (SDC) | payer BC ==
[~2019-06-06 07:02] MED LIST: Lactated Ringers 1,000 ML IV SCH; Lidocaine 1%/Sod Bicarbonate in NS 8.4% 1 ML Syringe IDERM PRN; Sodium Chloride 0.9% 10 ML Syringe FLUSH PRN
[2019-06-06] MEDS ORDERED: Propofol 200 MG/20 ML SDV ONE (07:05)
[2019-06-06] MEDS ORDERED: Midazolam 1 MG/ML 2 ML SDV ONE (07:06)
[2019-06-06] MEDS ORDERED: fentaNYL 100 MCG/2 ML SDV ONE (07:06)
[2019-06-06] MEDS ORDERED: Ketamine 500 mg/10 ML MDV ONE (07:06)
[2019-06-06] MEDS ORDERED: ceFAZolin 1 GM Vial ONE (07:09)
[2019-06-06] MEDS ORDERED: Lidocaine 1% 30 ML SDV ONE (07:22)
[2019-06-06] MEDS ORDERED: Sodium Chloride 0.9% 50 ML SDV ONE (07:23)
--- NOTE | 2019-06-06 07:25 | PCM.PREANE ---
Preanesthetic Assessment - Anesthesia/Transfusion/Family Hx Anesthesia History: Prior Anesthesia Reaction Family History of Anesthesia Reaction: No Transfusion History: No Prior Transfusion(s) Intubation History: Unknown - Review of Systems General: Other (starting chemotherapy for colon ca, s/p cold with decreasing sinus drainage. Pt states hardly any running nose for past 2 days) Pulmonary: No Symptoms Cardiovascular: No Symptoms Gastrointestinal: Other (S/P right colectomy 04/2019 with open midline wound that is being packed 2x/day.) Neurological: Tremors (essential tremors), Other Other: Reports: None - Physical Assessment NPO Status Date: 06/05/19 NPO Status Time: 19:00 ASA Class: 2 Mental Status: Alert & Oriented x3 Airway Class: Mallampati = 2 Dentition: Reports: Normal Dentition Thyro-Mental Finger Breadths: 3 Mouth Opening Finger Breadths: 3 ROM/Head Extension: Full Lungs: Clear to Auscultation, Normal Respiratory Effort Cardiovascular: Regular Rate, Regular Rhythm - Imaging/EKG Impressions: SR with left ventricular hypertrophy - Allergies Allergies/Adverse Reactions: Allergies Allergy/AdvReac Type Severity Reaction Status Date / Time No Known Allergies Allergy Verified 06/03/19 15:37 - Blood Blood Available: No Product(s) Available: None - Anesthesia Plan Beta Jen: Propranolol Med Last Dose Date: 06/06/19 Med Last Dose Time: 05:45 - Acknowledgements Anesthesia Type Planned: MAC Pt an Appropriate Candidate for the Planned Anesthesia: Yes Alternatives and Risks of Anesthesia Discussed w Pt/Guardian: Yes Pt/Guardian Understands and Agrees with Anesthesia Plan: Yes PreAnesthesia Questionnaire HEENT History: Reports: None Cardiovascular History: Reports: Other (See Below) Other Cardiovascular History: white coat syndrome (causes HTN) Respiratory History: Reports: None Gastrointestinal History: Reports: Hiatal Hernia, Other (See Below) Other Gastrointestinal History: abdominal pain Genitourinary History: Reports: Other (See Below) Other Genitourinary History: Hyperactive bladder, urge incontinence 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 Immunologic History: Reports: None Oncologic (Cancer) History: Reports: None Dermatologic History: Reports: Other (See Below) Other Dermatologic History: seborrehic keratosis, surgical site infection - Infectious Disease History Infectious Disease History: Reports: Chicken Pox, Measles, Mumps - Past Surgical History Head Surgeries/Procedures: Reports: None HEENT Surgical History: Reports: Oral Surgery Other HEENT Surgeries/Procedures: wisdom teeth removed. Cardiovascular Surgical History: Reports: None Respiratory Surgical History: Reports: None GI Surgical History: Reports: Colonoscopy, EGD, Other (See Below) Other GI Surgeries/Procedures: Laproscopic 04/04/19- looked like adhesion or tumor on CT scan but nothing was discovered. Endoscope on 04/05/19. right hemicoloectomy Female Surgical History: Reports: Breast Biopsy, Other (See Below) Other Female Surgeries/Procedures: fibroid in right breast removed. Endocrine Surgical History: Reports: None Oncologic Surgical History: Reports: None Dermatological Surgical History: Reports: None - SUBSTANCE USE Smoking Status *Q: Never Smoker Recreational Drug Use History: No - HOME MEDS Home Medications: Home Meds Multivits,Th w-Fe,Other Min [Complete Multivitamin] 1 tab PO DAILY 04/03/19 [ History] Oxybutynin Chloride [Ditropan Xl] 10 mg PO DAILY 04/03/19 [History] Propranolol [Inderal LA] 80 mg PO DAILY 04/03/19 [History] Pantoprazole Sodium [Protonix] 40 mg PO DAILY 04/08/19 [History] - CURRENT (IN HOUSE) MEDS Current Meds: Current Medications Lactated Ringer's (Ringers, Lactated) 1,000 mls @ 125 mls/hr IV ASDIRECTED [facility] Stop: 06/06/19 23:00 Lidocaine/Sodium Bicarbonate (Buffered Lidocaine 1% In Ns 8.4%) 0.25 ml IDERM ONETIME PRN PRN Reason: Prior to IV Start Stop: 06/06/19 18:00 Sodium Chloride (Saline Flush) 10 ml FLUSH ASDIRECTED PRN PRN Reason: Keep Vein Open Stop: 06/06/19 18:00 Discontinued Medications Cefazolin Sodium (Ancef) Confirm Administered Dose 2 gm .ROUTE .STK-MED ONE Stop: 06/06/19 07:10 Fentanyl (Sublimaze) Confirm Administered Dose 100 mcg .ROUTE .STK-MED ONE Stop: 06/06/19 07:07 Ketamine HCl (Ketalar) Confirm Administered Dose 500 mg .ROUTE .STK-MED ONE Stop: 06/06/19 07:07 Midazolam HCl (Versed 1 Mg/Ml) Confirm Administered Dose 2 mg .ROUTE .STK-MED ONE Stop: 06/06/19 07:07 Propofol (Diprivan 20 Ml) Confirm Administered Dose 400 mg .ROUTE .STK-MED ONE Stop: 06/06/19 07:06
[2019-06-06] MEDS ORDERED: Scopolamine 1.5 MG Transdermal Patch TRDERM ONE (07:45)
[2019-06-06] MEDS ORDERED: Lidocaine 1% with EPINEPHrine 1:100,000 20 ML MDV ONE ×2 (07:57→09:06)
[2019-06-06] MEDS ORDERED: Ondansetron 4 MG/2 ML SDV ONE (08:42)
[2019-06-06] MEDS ORDERED: Lactated Ringers 1,000 ML ONE (09:19)
--- NOTE | 2019-06-06 10:12 | PCM48HPAN ---
Post Anesthesia Note - EVALUATION WITHIN 48HRS OF ANESTHETIC Vital Signs in Normal Range: Yes Patient Participated in Evaluation: Yes Respiratory Function Stable: Yes Airway Patent: Yes Cardiovascular Function Stable: Yes Hydration Status Stable: Yes Pain Control Satisfactory: Yes Nausea and Vomiting Control Satisfactory: Yes Mental Status Recovered: Yes Vital Signs: Last Vital Signs Temp 36.8 C 06/06/19 07:10 Pulse 57 L 06/06/19 07:10 Resp 14 06/06/19 07:10 BP 147/87 H 06/06/19 07:10 Pulse Ox 96 06/06/19 07:10
--- NOTE | 2019-06-06 10:30 | CR ---
Chest: Single fluoroscopic spot view was obtained overlying port within the chest. Fluoroscopy time is given as 117.7 seconds Impression: 1. Fluoroscopy study as noted above. Diagnostic code #1
[2019-06-06] MEDS ORDERED: Acetaminophen 325 MG Tab PO ONE (11:00)
--- NOTE | 2019-06-06 11:44 | CR ---
Chest: Portable view of the chest was obtained. Comparison: Previous chest x-ray of 04/08/19. Right-sided infusion catheter is seen. Tip located within the superior vena cava. Slight atelectasis is noted within the left base. Lungs otherwise are clear. No pneumothorax is seen. Heart size is within normal limits for portable technique. Impression: 1. Right-sided infusion catheter with tip located within superior vena cava. 2. Left basilar atelectasis. Diagnostic code #2
--- NOTE | 2019-06-06 15:51 | OR ---
DATE OF OPERATION: 06/06/2019 SURGEON: Virgie Bonilla MD PREOPERATIVE DIAGNOSIS: Need for MediPort. POSTOPERATIVE DIAGNOSIS: Need for MediPort. OPERATION PERFORMED: 1. Ultrasound guide internal jugular venous access 2. MediPort placement under fluoroscopic guidance. COMPLICATIONS: None. ESTIMATED BLOOD LOSS: 5 mL. INDICATION AND CONSENT: The patient is a 63-year-old female with recently diagnosed and had resection of colorectal cancer. The patient requires chemotherapy and her medical oncologist sent her for a port placement. I evaluated the patient in clinic, and she was fit for port placement. I discussed with her about possible risks, benefits, and alternatives. Risks discussed included, but not limited to, injury to the major vessels including the carotid artery, injury to the nerves and lung, and bleeding and infection. The patient agreed to proceed with procedure and informed consent was obtained. DESCRIPTION OF PROCEDURE: The patient was taken to the operating room, placed on the operating table in supine position. Following induction of monitored anesthesia, the right neck and chest were prepped and draped in the usual sterile fashion. A formal time- out was performed prior to the start of the procedure. Began our procedure by accessing the right internal jugular vein using introducer needle that was 8- [place]. This was done under ultrasound guidance. Then, a guidewire was passed down under fluoroscopy into the IVC. Once this was done, the site on the right chest for port pocket was identified. Incision was made into subcutaneous tissue. A small pocket was made at this site. Lidocaine was injected copiously on this site as well as on a tract subcutaneously up towards the venipuncture site. Then, the 8-[place] catheter was tunneled from the port pocket site to the venipuncture site using a tunneler. At this point, the introducer needle was removed and peel-away sheath with dilator was placed. Then, the dilator was removed and the catheter was advanced through the peel-away sheath into the SVC. Then, the excess catheter was trimmed and the port was connected to the catheter and secured as instructed in the instruction manual and then the port was placed into the subcutaneous previously created pocket. Then, the rest of the redundant catheter was placed into the SVC and the peel-away sheath was removed. All this was done under fluoroscopic guidance, and after placement of the catheter, it was visualized to be into the distal SVC close to caval-arterial junction. The right chest pocket port site was about 3 cm in length. This was closed in 2 layers. The deeper layer was closed with 3-0 Vicryl stitches and the subcutaneous layer was closed with 4-0 Vicryl stitches. The neck incision was closed in 1 layer with 4-0 Vicryl stitch. Dermabond was applied. This marked the end of the procedure. All instrument, sharps, and sponges were accounted for to be correct x2. The patient tolerated the procedure well. The patient to be discharged home today and she may start using the port as soon as tomorrow. ANESTHESIA: MMODAL /[id number]
== END 2019-06-06 11:34 | disposition home or self-care (01) ==
LOC: JD.SDS 07:02
PROVIDERS: ATTEND Surgery
DX: C18.9 Malignant neoplasm of colon, unspecified (principal); M81.0 Age-related osteoporosis without current pathological fracture; M19.90 Unspecified osteoarthritis, unspecified site; Z80.0 Family history of malignant neoplasm of digestive organs; Z79.899 Other long term (current) drug therapy
CPT/HCPCS: 71045; 71045-26; 77001; 77001-26; 87641; A9270-GY; C1788; J0690; J1642; J2001; J2250; J2405; J2704; J3010; J7120

== ENCOUNTER 2024-05-02 10:47 | Emergency (ER) | payer MEDICARE, BC ==
[2024-05-02 11:55] LABS: BASOPHILS PERCENT AUTO 0.4 % (0.0-1.0); EOSINOPHILS ABSOLUTE AUTO 0.2 K/mm3 (0.0-0.4); EOSINOPHILS PERCENT AUTO 2.4 % (0.0-6.0); HEMATOCRIT 41.5 % (37.0-47.0); HEMOGLOBIN 13.7 gm/dl (12.0-16.0); IMMATURE GRAN ABSOLUTE AUTO 0.02 K/mm3 (0.00-0.05); IMMATURE GRAN PERCENT AUTO 0.3 % (0.0-0.4); LYMPHOCYTES PERCENT AUTO 14.6 % (24.0-44.0); MEAN CORPUSCULAR VOLUME 90.8 fl (83.0-99.0); MEAN PLATELET VOLUME 8.5 fl (9.4-12.3); MONOCYTES ABSOLUTE AUTO 0.8 K/mm3 (0.0-0.8); MONOCYTES PERCENT AUTO 10.7 % (0.0-8.0); NEUTROPHILS PERCENT AUTO 71.6 % (41.0-71.0); PLATELET COUNT,PLT 239 K/mm3 (150-400); RED BLOOD CELL COUNT 4.57 M/mm3 (4.10-5.30)
[2024-05-02] MEDS: Sodium Chloride 0.9% 500 ML IV ONE (12:07)
[2024-05-02 12:31] LABS: A/G RATIO 1.2 (1-2); ALBUMIN 3.7 g/dl (3.4-5.0); ANION GAP 15.6 (5-15); BILIRUBIN TOTAL 1.4 mg/dL (0.2-1.0); BUN/CREATININE RATIO 16.7 (14-18); CALCIUM 9.4 mg/dL (8.5-10.1); CREATININE 0.9 mg/dL (0.55-1.02); EST CRCL DRUG DOSING (CG) 57.56 mL/min; POTASSIUM,K 4.6 mEq/L (3.5-5.1); PROTEIN TOTAL,TP 6.9 g/dl (6.4-8.2); TSH 0.697 uIU/mL (0.358-3.74)
[2024-05-02] MEDS: Sodium Chloride 0.9% 10 ML Syringe FLUSH PRN (13:17)
[2024-05-02] MEDS: Sodium Chloride 0.9% 45 ML IV SCH (13:17)
[2024-05-02] MEDS: Iopamidol 755 Mg/ML 100 ML Bottle IVPUSH ONE (13:17)
[2024-05-02 13:23] LABS: APPEARANCE,URINE CLEAR (Clear); BILIRUBIN,URINE NEGATIVE (Negative); COLOR,URINE YELLOW (Yellow); GLUCOSE,URINE NEGATIVE (Negative); KETONES,URINE 1+ (Negative); LEUKOCYTE ESTERASE,URINE NEGATIVE (Negative); NITRITE,URINE NEGATIVE (Negative); OCCULT BLOOD,URINE TRACE-INTACT (Negative); PROTEIN,URINE NEGATIVE (Negative); UROBILINOGEN,URINE 0.2 (0.2-1.0)
[2024-05-02 13:38] LABS: BACTERIA,URINE FEW /hpf (FEW); EPITHELIAL CELLS,URINE 0-5 /hpf (0-5); MUCUS,URINE RARE /hpf (FEW); WBC,URINE 0-5 /hpf (0-5)
[2024-05-02] MEDS ORDERED: Amoxicillin/Clavulanate K 875-125 MG Tab ONE (15:16)
[2024-05-02] MEDS: Amoxicillin/Clavulanate K 875-125 MG Tab PO ONE (15:19)
[2024-05-02] MEDS: Azithromycin 250 MG Tab PO ONE (15:19)
== END 2024-05-02 15:25 | disposition home or self-care (01) ==
LOC: JD.ED 10:47
DX: J18.9 Pneumonia, unspecified organism (principal); R53.83 Other fatigue; Z86.16 Personal history of COVID-19; Z79.899 Other long term (current) drug therapy
CPT/HCPCS: 36415; 71046; 71275; 80053; 81001; 83735; 84443; 85025; 85379; 93005; 96360; 99285; A9270; J3490; J7030; Q9967; 93010; 99284

== ENCOUNTER 2024-08-01 07:06 | Emergency (ER) | payer MEDICARE, BC ==
[2024-08-01 08:02] LABS: BASOPHILS PERCENT AUTO 0.3 % (0.0-1.0); EOSINOPHILS PERCENT AUTO 0.8 % (0.0-6.0); HEMATOCRIT 34.6 % (37.0-47.0); HEMOGLOBIN 11.3 gm/dl (12.0-16.0); IMMATURE GRAN ABSOLUTE AUTO 0.02 K/mm3 (0.00-0.05); IMMATURE GRAN PERCENT AUTO 0.6 % (0.0-0.4); LYMPHOCYTES ABSOLUTE AUTO 0.5 K/mm3 (1.0-4.8); LYMPHOCYTES PERCENT AUTO 13.6 % (24.0-44.0); MEAN CORPUSCULAR HEMOGLOBIN 33.2 pg (28.0-32.0); MEAN CORPUSCULAR HGB CONC 32.7 g/dl (32.0-36.0); MEAN CORPUSCULAR VOLUME 101.8 fl (83.0-99.0); MEAN PLATELET VOLUME 8.8 fl (9.4-12.3); MONOCYTES ABSOLUTE AUTO 0.4 K/mm3 (0.0-0.8); NEUTROPHILS ABSOLUTE AUTO 2.6 K/mm3 (1.8-7.7); NEUTROPHILS PERCENT AUTO 73.7 % (41.0-71.0); NRBC ABSOLUTE 0.02 (0.00-0.02); NRBC PERCENT 0.6 % (0.0-0.2); PLATELET COUNT,PLT 211 K/mm3 (150-400); WHITE BLOOD CELL COUNT,WBC 3.54 K/mm3 (3.9-11.3)
[2024-08-01] MEDS: Ondansetron 4 MG/2 ML SDV IVPUSH ONE (08:13)
[2024-08-01] MEDS: Sodium Chloride 0.9% 10 ML Syringe FLUSH PRN (08:15)
[2024-08-01] MEDS: Sodium Chloride 0.9% 100 ML IV SCH (08:15)
[2024-08-01] MEDS: Iopamidol 755 Mg/ML 100 ML Bottle IVPUSH ONE (08:15)
[2024-08-01 08:29] LABS: A/G RATIO 0.9 (1-2); ALBUMIN 3.1 g/dl (3.4-5.0); ANION GAP 16.3 (5-15); BILIRUBIN TOTAL 1.4 mg/dL (0.2-1.0); CALCIUM 8.7 mg/dL (8.5-10.1); EST CRCL DRUG DOSING (CG) 51.8 mL/min; POTASSIUM,K 4.3 mEq/L (3.5-5.1); PROTEIN TOTAL,TP 6.7 g/dl (6.4-8.2)
[2024-08-01] MEDS: Acetaminophen/oxyCODONE 325-5 MG Tab PO ONE (08:31)
[2024-08-01 08:35] LABS: CORONAVIRUS COVID-19 NAA POSITIVE (NEGATIVE); INFLUENZA A NAA NEGATIVE (NEGATIVE); RESPIRATORY SYNCYTIAL VIR NAA NEGATIVE (NEGATIVE)
[2024-08-01] MEDS: Levofloxacin/Dextrose 5%-Water 750 MG in Premix Bag 1 BAG IV ONE (09:12)
== END 2024-08-01 10:54 | disposition home or self-care (01) ==
LOC: JD.ED 07:06
DX: J18.9 Pneumonia, unspecified organism (principal); J91.8 Pleural effusion in other conditions classified elsewhere; C34.90 Malignant neoplasm of unspecified part of unspecified bronchus or lung; R07.1 Chest pain on breathing; Z86.16 Personal history of COVID-19; Z91.048 Other nonmedicinal substance allergy status; Z79.899 Other long term (current) drug therapy
CPT/HCPCS: 0241U; 36415; 71275; 80053; 82550; 83735; 84484; 85025; 93005; 96365; 96366; 96375; 99285; A9270; J1956; J2405; J3490; Q9967

== ENCOUNTER 2024-08-03 09:02 | Emergency (ER) | payer MEDICARE, BC ==
[2024-08-03] MEDS ORDERED: Sodium Chloride 0.9% 10 ML Syringe FLUSH PRN (09:38)
[2024-08-03] MEDS: Albuterol/Ipratropium 3.0-0.5 MG/3 ML Neb Soln NEB ONE (10:11)
[2024-08-03 10:16] LABS: BASOPHILS PERCENT AUTO 0.3 % (0.0-1.0); EOSINOPHILS ABSOLUTE AUTO 0.2 K/mm3 (0.0-0.4); EOSINOPHILS PERCENT AUTO 5.2 % (0.0-6.0); HEMATOCRIT 30.3 % (37.0-47.0); HEMOGLOBIN 10.5 gm/dl (12.0-16.0); IMMATURE GRAN ABSOLUTE AUTO 0.02 K/mm3 (0.00-0.05); IMMATURE GRAN PERCENT AUTO 0.6 % (0.0-0.4); LYMPHOCYTES ABSOLUTE AUTO 0.5 K/mm3 (1.0-4.8); LYMPHOCYTES PERCENT AUTO 16.2 % (24.0-44.0); MEAN CORPUSCULAR HEMOGLOBIN 33.1 pg (28.0-32.0); MEAN CORPUSCULAR HGB CONC 34.7 g/dl (32.0-36.0); MEAN CORPUSCULAR VOLUME 95.6 fl (83.0-99.0); MEAN PLATELET VOLUME 8.8 fl (9.4-12.3); MONOCYTES ABSOLUTE AUTO 0.5 K/mm3 (0.0-0.8); MONOCYTES PERCENT AUTO 14.7 % (0.0-8.0); NEUTROPHILS ABSOLUTE AUTO 2.1 K/mm3 (1.8-7.7); PLATELET COUNT,PLT 165 K/mm3 (150-400); RED BLOOD CELL COUNT 3.17 M/mm3 (4.10-5.30); WHITE BLOOD CELL COUNT,WBC 3.27 K/mm3 (3.9-11.3)
[2024-08-03 10:45] LABS: A/G RATIO 0.8 (1-2); ANION GAP 15.6 (5-15); BILIRUBIN TOTAL 0.7 mg/dL (0.2-1.0); CALCIUM 8.6 mg/dL (8.5-10.1); EST CRCL DRUG DOSING (CG) 51.8 mL/min; POTASSIUM,K 4.6 mEq/L (3.5-5.1); PROTEIN TOTAL,TP 6.7 g/dl (6.4-8.2)
[2024-08-03] MEDS: REMDESIVIR 200 MG in Sodium Chloride 0.9% 250 ML IV ONE (10:59)
[2024-08-03] MEDS: Albuterol 6.7 GM Inhaler INH ONE (12:47)
== END 2024-08-03 13:00 | disposition home or self-care (01) ==
LOC: JD.ED 09:02
DX: U07.1 COVID-19 (principal); I10 Essential (primary) hypertension; Z91.048 Other nonmedicinal substance allergy status; Z79.899 Other long term (current) drug therapy
CPT/HCPCS: 36415; 71045; 80053; 83880; 84484; 85025; 93005; 94640; 96365; 99285; A9270; J0248; J7050; J7620-GY

== ENCOUNTER 2024-08-15 11:09 | Inpatient (IN) | payer MEDICARE, BC ==
[2024-08-15 12:30] LABS: BASOPHILS PERCENT AUTO 0.4 % (0.0-1.0); EOSINOPHILS ABSOLUTE AUTO 0.2 K/mm3 (0.0-0.4); EOSINOPHILS PERCENT AUTO 4.2 % (0.0-6.0); HEMATOCRIT 36.5 % (37.0-47.0); HEMOGLOBIN 11.7 gm/dl (12.0-16.0); IMMATURE GRAN ABSOLUTE AUTO 0.03 K/mm3 (0.00-0.05); IMMATURE GRAN PERCENT AUTO 0.6 % (0.0-0.4); LYMPHOCYTES ABSOLUTE AUTO 0.8 K/mm3 (1.0-4.8); MEAN CORPUSCULAR HEMOGLOBIN 33.1 pg (28.0-32.0); MEAN CORPUSCULAR HGB CONC 32.1 g/dl (32.0-36.0); MEAN CORPUSCULAR VOLUME 103.1 fl (83.0-99.0); MEAN PLATELET VOLUME 9.1 fl (9.4-12.3); MONOCYTES ABSOLUTE AUTO 0.7 K/mm3 (0.0-0.8); MONOCYTES PERCENT AUTO 13.5 % (0.0-8.0); NEUTROPHILS ABSOLUTE AUTO 3.5 K/mm3 (1.8-7.7); NEUTROPHILS PERCENT AUTO 66.3 % (41.0-71.0); PLATELET COUNT,PLT 266 K/mm3 (150-400); RED BLOOD CELL COUNT 3.54 M/mm3 (4.10-5.30)
[2024-08-15] MEDS ORDERED: Sodium Chloride 0.9% 1,000 ML IV SCH (12:30)
[2024-08-15 12:52] LABS: A/G RATIO 0.8 (1-2); ALBUMIN 3.3 g/dl (3.4-5.0); ANION GAP 15.2 (5-15); BILIRUBIN TOTAL 1.2 mg/dL (0.2-1.0); C-REACTIVE PROTEIN 4.4 mg/dL (<0.30); CALCIUM 9.4 mg/dL (8.5-10.1); CREATININE 0.8 mg/dL (0.55-1.02); EST CRCL DRUG DOSING (CG) 64.76 mL/min; POTASSIUM,K 4.2 mEq/L (3.5-5.1); PROTEIN TOTAL,TP 7.4 g/dl (6.4-8.2)
[2024-08-15 13:00] LABS: LACTIC ACID 2.3 mmol/L (0.4-2.0)
[2024-08-15] MEDS: Sodium Chloride 0.9% 1,000 ML IV SCH (13:15)
[2024-08-15] MEDS: Sodium Chloride 0.9% 10 ML Syringe FLUSH PRN (13:15)
[2024-08-15] MEDS: Albuterol/Ipratropium 3.0-0.5 MG/3 ML Neb Soln NEB ONE ×2 (15:57→18:22)
[2024-08-15] MEDS: Furosemide 40 MG/4 ML VIAL IVPUSH ONE (16:00)
[2024-08-15] MEDS: Sodium Chloride 0.9% 100 ML IV SCH (17:25)
[2024-08-15] MEDS: Iopamidol 755 Mg/ML 100 ML Bottle IVPUSH ONE (17:25)
[2024-08-15] MEDS: LORazepam 2 MG/ML SDV IVPUSH ONE (18:06)
[2024-08-15] MEDS ORDERED: Piperacillin/Tazobactam 4.5 GM in Sodium Chloride 0.9% 100 ML IV ONE (18:13)
[2024-08-15] MEDS ORDERED: Acetaminophen 325 MG Tab PO PRN (19:19)
[2024-08-15] MEDS ORDERED: Naloxone 0.4 MG/ML SDV IVPUSH PRN (19:19)
[2024-08-15] MEDS ORDERED: oxyCODONE 5 MG Tab PO PRN (19:19)
[2024-08-15] MEDS ORDERED: Ondansetron 4 MG/2 ML SDV IV PRN (19:19)
[2024-08-15] MEDS ORDERED: Melatonin 3 MG Tab PO PRN (19:19)
[2024-08-15] MEDS ORDERED: Morphine 2 MG/ML SYRINGE IVPUSH PRN (19:19)
[2024-08-15] MEDS ORDERED: Sennosides/Docusate Sodium 50-8.6 MG Tab PO PRN (19:19)
[2024-08-15] MEDS: Albuterol/Ipratropium 3.0-0.5 MG/3 ML Neb Soln NEB PRN (19:49)
[2024-08-15 20:48] LABS: BASE EXCESS ARTERIAL -2.3 (-2-2.0); BICARBONATE,ARTERIAL 23.3 meq/L (22.0-26.0); PCO2 ARTERIAL 46.6 mmHg (35.0-45.0)
[2024-08-15] MEDS: Piperacillin/Tazobactam 4.5 GM in Water For Injection, Sterile 20 ML IV SCH (21:00)
[2024-08-15] MEDS: Albuterol/Ipratropium 3.0-0.5 MG/3 ML Neb Soln NEB SCH (21:53)
[2024-08-15] MEDS: LORazepam 2 MG/ML SDV IVPUSH PRN (23:01)
[2024-08-16 05:32] LABS: BASOPHILS PERCENT AUTO 0.6 % (0.0-1.0); EOSINOPHILS PERCENT AUTO 1.1 % (0.0-6.0); HEMATOCRIT 31.1 % (37.0-47.0); HEMOGLOBIN 10.1 gm/dl (12.0-16.0); IMMATURE GRAN ABSOLUTE AUTO 0.02 K/mm3 (0.00-0.05); IMMATURE GRAN PERCENT AUTO 0.6 % (0.0-0.4); LYMPHOCYTES ABSOLUTE AUTO 0.6 K/mm3 (1.0-4.8); LYMPHOCYTES PERCENT AUTO 16.2 % (24.0-44.0); MEAN CORPUSCULAR HEMOGLOBIN 33.7 pg (28.0-32.0); MEAN CORPUSCULAR HGB CONC 32.5 g/dl (32.0-36.0); MEAN CORPUSCULAR VOLUME 103.7 fl (83.0-99.0); MEAN PLATELET VOLUME 9.1 fl (9.4-12.3); MONOCYTES ABSOLUTE AUTO 0.5 K/mm3 (0.0-0.8); MONOCYTES PERCENT AUTO 14.3 % (0.0-8.0); NEUTROPHILS ABSOLUTE AUTO 2.4 K/mm3 (1.8-7.7); NEUTROPHILS PERCENT AUTO 67.2 % (41.0-71.0); PLATELET COUNT,PLT 221 K/mm3 (150-400); WHITE BLOOD CELL COUNT,WBC 3.57 K/mm3 (3.9-11.3)
[2024-08-16 06:20] LABS: A/G RATIO 0.7 (1-2); ALBUMIN 2.7 g/dl (3.4-5.0); BILIRUBIN TOTAL 1.4 mg/dL (0.2-1.0); C-REACTIVE PROTEIN 4.58 mg/dL (<0.30); CALCIUM 8.6 mg/dL (8.5-10.1); CREATININE 0.9 mg/dL (0.55-1.02); EST CRCL DRUG DOSING (CG) 57.56 mL/min; PROTEIN TOTAL,TP 6.4 g/dl (6.4-8.2); TSH 1.352 uIU/mL (0.358-3.74)
[2024-08-16 06:25] LABS: FOLIC ACID 16.7 ng/mL (8.6-58.9)
[2024-08-16 06:31] LABS: INR 1.01; PROTHROMBIN TIME 10.7 SECONDS (9.7-12.0)
[2024-08-16 09:58] LABS: BASE EXCESS ARTERIAL -2.7 (-2-2.0); BICARBONATE,ARTERIAL 21.7 meq/L (22.0-26.0); O2 SATURATION ARTERIAL 95.3 % (96.0-97.0); PCO2 ARTERIAL 38.2 mmHg (35.0-45.0)
[2024-08-16] MEDS: Piperacillin/Tazobactam 4.5 GM Vial IV SCH (10:16)
[2024-08-16] MEDS: Enoxaparin 40 MG/0.4 ML Syringe SUBCUT SCH (10:16)
[2024-08-16] MEDS ORDERED: 50% Dextrose in Water 50 ML Syringe IVPUSH PRN (11:32)
[2024-08-16 12:25] LABS: HEMOGLOBIN A1C 5.6 %
[2024-08-16] MEDS ORDERED: Cyclobenzaprine 10 MG Tab PO PRN (13:57)
[2024-08-16] MEDS ORDERED: Acetaminophen/HYDROcodone 325-5 MG Tab PO PRN (14:03)
[2024-08-16] MEDS: Sodium Chloride 0.9% 0 ML ONE (16:52)
[2024-08-16] MEDS: Lidocaine 1% 10 ML MDV ONE (16:52)
[2024-08-16] MEDS: Propranolol 80 MG Cap.ER PO SCH (16:53)
[2024-08-16 18:00] LABS: BODY FLUID TYPE THORACENTESIS FLUID
[2024-08-16] MEDS: Insulin Lispro 100 Unit/ML 3 ML KwikPen SUBCUT SCH (18:49)
[2024-08-16 18:56] LABS: GLUCOSE,BODY FLUID 4 mg/dL; PROTEIN,BODY FLUID 5.2 gm/dl
[2024-08-16] MEDS ORDERED: Famotidine 20 MG/2 ML SDV IVPUSH SCH (21:00)
[2024-08-16 23:35] LABS: APPEARANCE,BODY FLUID SLIGHTLY CLOUDY; COLOR,BODY FLUID YELLOW; SITE,BODY FLUID THORACENTESIS; VOLUME BODY FLUID 5 ML; WBC BODY FLUID 352 /uL (0-0)
[2024-08-16 23:36] LABS: RBC,BODY FLUID 0 /uL (0-0)
[2024-08-17 06:53] LABS: BASOPHILS PERCENT AUTO 0.6 % (0.0-1.0); EOSINOPHILS ABSOLUTE AUTO 0.4 K/mm3 (0.0-0.4); EOSINOPHILS PERCENT AUTO 10.1 % (0.0-6.0); HEMATOCRIT 29.6 % (37.0-47.0); HEMOGLOBIN 9.7 gm/dl (12.0-16.0); IMMATURE GRAN ABSOLUTE AUTO 0.01 K/mm3 (0.00-0.05); IMMATURE GRAN PERCENT AUTO 0.3 % (0.0-0.4); LYMPHOCYTES ABSOLUTE AUTO 0.6 K/mm3 (1.0-4.8); LYMPHOCYTES PERCENT AUTO 17.5 % (24.0-44.0); MEAN CORPUSCULAR HGB CONC 32.8 g/dl (32.0-36.0); MEAN CORPUSCULAR VOLUME 103.9 fl (83.0-99.0); MONOCYTES ABSOLUTE AUTO 0.7 K/mm3 (0.0-0.8); NEUTROPHILS ABSOLUTE AUTO 1.8 K/mm3 (1.8-7.7); NEUTROPHILS PERCENT AUTO 50.5 % (41.0-71.0); PLATELET COUNT,PLT 191 K/mm3 (150-400); RED BLOOD CELL COUNT 2.85 M/mm3 (4.10-5.30); WHITE BLOOD CELL COUNT,WBC 3.48 K/mm3 (3.9-11.3)
[2024-08-17 07:20] LABS: A/G RATIO 0.7 (1-2); ALBUMIN 2.5 g/dl (3.4-5.0); ANION GAP 17.6 (5-15); BILIRUBIN TOTAL 1.3 mg/dL (0.2-1.0); BUN/CREATININE RATIO 22.2 (14-18); CALCIUM 8.5 mg/dL (8.5-10.1); CREATININE 0.9 mg/dL (0.55-1.02); EST CRCL DRUG DOSING (CG) 57.56 mL/min; POTASSIUM,K 3.6 mEq/L (3.5-5.1)
[2024-08-17 07:28] LABS: SLIDE REVIEW ABNORMAL SMEAR
[2024-08-17 08:02] LABS: FERRITIN 552 ng/ml (8-252); IRON,FE 54 ug/dL (50-170); PERCENT FE SATURATION 30 % (20-55); TRANSFERRIN 145 mg/dL (202-364)
[2024-08-17 08:05] LABS: TOTAL IRON BINDING CAPACITY 181 ug/dL (100-400)
[2024-08-17] MEDS: Pantoprazole 40 MG Tab.CR PO SCH (08:07)
[2024-08-17] MEDS ORDERED: Acetaminophen/HYDROcodone 325-5 MG Tab PO PRN (12:46)
[2024-08-17] MEDS: Loperamide 2 MG Cap PO ONE (15:58)
[2024-08-17] MEDS: Potassium Chloride 20 MEQ Tab.ER PO ONE (21:28)
[2024-08-17] MEDS: Calcium Carbonate 500 MG Tab.Chew PO PRN (23:18)
[2024-08-18 04:41] LABS: BASOPHILS PERCENT AUTO 0.6 % (0.0-1.0); EOSINOPHILS ABSOLUTE AUTO 0.3 K/mm3 (0.0-0.4); EOSINOPHILS PERCENT AUTO 10.1 % (0.0-6.0); HEMATOCRIT 30.4 % (37.0-47.0); HEMOGLOBIN 9.9 gm/dl (12.0-16.0); IMMATURE GRAN ABSOLUTE AUTO 0.01 K/mm3 (0.00-0.05); IMMATURE GRAN PERCENT AUTO 0.3 % (0.0-0.4); LYMPHOCYTES ABSOLUTE AUTO 0.8 K/mm3 (1.0-4.8); LYMPHOCYTES PERCENT AUTO 22.9 % (24.0-44.0); MEAN CORPUSCULAR HEMOGLOBIN 34.1 pg (28.0-32.0); MEAN CORPUSCULAR HGB CONC 32.6 g/dl (32.0-36.0); MEAN CORPUSCULAR VOLUME 104.8 fl (83.0-99.0); MEAN PLATELET VOLUME 9.3 fl (9.4-12.3); MONOCYTES ABSOLUTE AUTO 0.8 K/mm3 (0.0-0.8); NEUTROPHILS ABSOLUTE AUTO 1.4 K/mm3 (1.8-7.7); NEUTROPHILS PERCENT AUTO 41.1 % (41.0-71.0); PLATELET COUNT,PLT 186 K/mm3 (150-400); WHITE BLOOD CELL COUNT,WBC 3.36 K/mm3 (3.9-11.3)
[2024-08-18 05:07] LABS: A/G RATIO 0.7 (1-2); ALBUMIN 2.3 g/dl (3.4-5.0); ANION GAP 12.5 (5-15); BILIRUBIN TOTAL 1.3 mg/dL (0.2-1.0); BUN/CREATININE RATIO 18.9 (14-18); CALCIUM 8.4 mg/dL (8.5-10.1); CREATININE 0.9 mg/dL (0.55-1.02); EST CRCL DRUG DOSING (CG) 57.28 mL/min; MAGNESIUM 2.1 mg/dL (1.8-2.4); POTASSIUM,K 3.5 mEq/L (3.5-5.1); PROTEIN TOTAL,TP 5.8 g/dl (6.4-8.2)
[2024-08-18 05:20] LABS: SLIDE REVIEW ABNORMAL SMEAR
[2024-08-18] MEDS: Potassium Bicarbonate/Cit Ac 20 MEQ Effervescent Tab PO ONE (11:51)
== END 2024-08-18 15:46 | disposition home or self-care (01) | DRG 871 ==
LOC: JD.ED 11:09 → JD.MS 19:19 → JD.ICU 20:14 → JD.MS 08-17 19:31
PROVIDERS: ADMIT Student in an Organized Health Care Education/Training Program; ATTEND Student in an Organized Health Care Education/Training Program
PROC: 4A133R1 Monitoring of Arterial Saturation, Peripheral, Percutaneous Approach (ICD-10-PCS; 2024-08-15)
PROC: 3E03329 Introduction of Other Anti-infective into Peripheral Vein, Percutaneous Approach (ICD-10-PCS; 2024-08-15)
PROC: 0W993ZZ Drainage of Right Pleural Cavity, Percutaneous Approach (ICD-10-PCS; principal; 2024-08-16)
DX: J90 Pleural effusion, not elsewhere classified (principal); R06.00 Dyspnea, unspecified; C80.1 Malignant (primary) neoplasm, unspecified; A41.9 Sepsis, unspecified organism; Z91.048 Other nonmedicinal substance allergy status; D61.1 Drug-induced aplastic anemia; J15.9 Unspecified bacterial pneumonia; J96.21 Acute and chronic respiratory failure with hypoxia; J96.22 Acute and chronic respiratory failure with hypercapnia; J81.1 Chronic pulmonary edema; J98.11 Atelectasis; C18.9 Malignant neoplasm of colon, unspecified; C78.7 Secondary malignant neoplasm of liver and intrahepatic bile duct; C79.51 Secondary malignant neoplasm of bone; D84.9 Immunodeficiency, unspecified; E87.29 Other acidosis; C78.02 Secondary malignant neoplasm of left lung; C78.01 Secondary malignant neoplasm of right lung; J91.8 Pleural effusion in other conditions classified elsewhere; I10 Essential (primary) hypertension; R65.20 Severe sepsis without septic shock; D53.9 Nutritional anemia, unspecified; E88.09 Other disorders of plasma-protein metabolism, not elsewhere classified; R79.89 Other specified abnormal findings of blood chemistry; R91.1 Solitary pulmonary nodule; M81.0 Age-related osteoporosis without current pathological fracture; F41.9 Anxiety disorder, unspecified; D63.8 Anemia in other chronic diseases classified elsewhere; M19.90 Unspecified osteoarthritis, unspecified site; E86.0 Dehydration; Z91.09 Other allergy status, other than to drugs and biological substances; Z79.51 Long term (current) use of inhaled steroids; Z79.899 Other long term (current) drug therapy; Z87.440 Personal history of urinary (tract) infections; Z87.81 Personal history of (healed) traumatic fracture; Z86.16 Personal history of COVID-19; Z98.890 Other specified postprocedural states; Z79.60 Long term (current) use of unspecified immunomodulators and immunosuppressants; Z99.81 Dependence on supplemental oxygen
CPT/HCPCS: 36415; 36600; 71045; 71045-26; 71275; 71275-26; 80053; 82607; 82652; 82728; 82746; 82803; 82945; 82947; 83036; 83540; 83605; 83615; 83735; 83880; 84100; 84157; 84443; 84466; 84484; 85025; 85610; 86140; 87040; 87428-QW; 87641; 88112; 88305; 88341; 88342; 89050; 93005; 93010; 94640; 94660; 94761; 96361; 96374; 96375; 97110-GP; 97116-GP; 97161-GP; 99223; 99233; 99239; 99285; 99285-25; A9270-GY; J1650; J1940; J2060; J2543; J7030; J7620-GY; Q9967

== ENCOUNTER 2024-08-24 09:54 | Observation (INO) | payer MEDICARE, BC ==
[2024-08-24] MEDS ORDERED: Lidocaine 1% 10 ML MDV INJECT ONE (10:00)
[2024-08-24] MEDS: Lidocaine 1% 10 ML MDV INJECT ONE (11:45)
[2024-08-24] MEDS: HYDROmorphone 0.5 MG/0.5 ML Syringe IVPUSH ONE (12:07)
[2024-08-24] MEDS ORDERED: oxyCODONE 5 MG Tab PO PRN (12:17)
[2024-08-24] MEDS ORDERED: Docusate Sodium 100 MG Cap PO PRN (12:17)
[2024-08-24] MEDS ORDERED: Acetaminophen 325 MG Tab PO PRN ×2 (12:17→14:27)
[2024-08-24] MEDS ORDERED: HYDROmorphone 0.5 MG/0.5 ML Syringe IVPUSH PRN (12:17)
[2024-08-24] MEDS ORDERED: Ondansetron 4 MG Tab.DIS PO PRN (12:17)
[2024-08-24] MEDS ORDERED: Cyclobenzaprine 10 MG Tab PO PRN (12:24)
[2024-08-24] MEDS ORDERED: TRIFLURIDINE PO SCH (12:30)
[2024-08-24] MEDS ORDERED: TIPIRACIL HCL PO SCH (12:30)
[2024-08-24] MEDS ORDERED: [UNRECOGNIZED DRUG - OTHER] PO SCH (12:30)
[2024-08-24] MEDS: HYDROmorphone 0.5 MG/0.5 ML Syringe ONE (12:36)
[2024-08-24] MEDS: Lidocaine 1% 10 ML MDV ONE (12:36)
[2024-08-24] MEDS: Ketorolac 30 MG/ML SDV IVPUSH SCH (12:54)
[2024-08-24] MEDS: Lactated Ringers 1,000 ML IV SCH (12:57)
[2024-08-24] MEDS ORDERED: Albuterol 0.083% 2.5 MG/3 ML Neb Soln INH PRN ×2 (13:23→15:00)
[2024-08-24] MEDS: Ketorolac 30 MG/ML SDV ONE (14:06)
[2024-08-24] MEDS: HYDROmorphone 0.5 MG/0.5 ML Syringe IVPUSH PRN (14:46)
[2024-08-24] MEDS ORDERED: Prochlorperazine 5 MG Tab PO PRN (15:00)
[2024-08-24] MEDS: Ketorolac 15 MG/ML SDV IVPUSH SCH (18:14)
[2024-08-25] MEDS ORDERED: LORazepam 0.5 MG Tab PO PRN (07:04)
[2024-08-25] MEDS: Potassium Chloride 10 MEQ Tab.ER PO SCH (09:14)
[2024-08-25] MEDS: Propranolol 80 MG Cap.ER PO SCH (09:14)
[2024-08-25] MEDS: Oxybutynin 5 MG Tab.ER PO SCH (09:14)
[2024-08-25] MEDS: Pantoprazole 40 MG Tab.CR PO SCH (09:14)
[2024-08-25] MEDS: oxyCODONE 5 MG Tab PO PRN (16:03)
[2024-08-25] MEDS: Lactated Ringers 1,000 ML IV SCH (22:47)
== END 2024-08-26 14:05 | disposition home or self-care (01) ==
LOC: JD.IVTHER 09:54 → JD.MS 12:17
PROVIDERS: ADMIT Surgery; ATTEND Surgery
DX: J95.811 Postprocedural pneumothorax (principal); C34.91 Malignant neoplasm of unspecified part of right bronchus or lung; C18.9 Malignant neoplasm of colon, unspecified
CPT/HCPCS: 32551; 32555; 71045; 94761; A9270; J1885; J7120; J3490